=== PATIENT | female | born 1945 | race Caucasian/White ===

== ENCOUNTER 2022-04-14 07:46 | Day surgery (SDC) | payer MEDICARE, SELFPAY ==
[2022-04-14] VITALS (24 sets, daily range): BP systolic 99–176; BP diastolic 54–92; PULSE 44–58; RESP 12–18; TEMP 36.1–36.6; O2SAT 92–100; BMI 29.7
[2022-04-14] MEDS: MIDAZOLAM HCL 1 MG/ML inj IVP (08:01)
[2022-04-14] MEDS: fentaNYL 100 MCG/2 ML inj IVP (08:01)
[2022-04-14] MEDS: SODIUM CHLORIDE 0.9 % (FLUSH) 10 ML SYRINGE IVF (08:37)
[2022-04-14] MEDS: LACTATED RINGERS 1000 ML 1,000 ML 100 ML IV (08:37)
[2022-04-14] MEDS: CELECOXIB 200 MG CAPSULE PO ×2 (08:38→21:14)
[2022-04-14] MEDS: ACETAMINOPHEN 500 MG TABLET 1000 MG PO ×2 (08:38→18:07)
[2022-04-14] MEDS: OXYCODONE (CR) 10 MG TAB.ER.12H PO (08:38)
[2022-04-14 10:03] LABS: INR 1.18 (0.91-1.10); Prothrombin Time 15.4 Seconds
--- NOTE | 2022-04-14 10:07 | SUR.PREOP ---
TIME?OUT:?1005 PT/Marcia RUSHING RN/Haresh MANZO MDA?VERIFICATION?OF?SURGICAL?SITE,?PROCEDURE,?AND?CONSENT OBTAINED?PRIOR?TO?INVASIVE?PROCEDURE.
--- NOTE | 2022-04-14 11:30 | P.ORPRC_ITS ---
Procedure Note Procedure: SURGEON: Senthil Dsouza MD WIND INSTRUMENT REPAIRER: Geo López PA-C PREOPERATIVE DIAGNOSIS: Left knee osteoarthritis POSTOPERATIVE DIAGNOSIS: Left knee osteoarthritis NAME OF OPERATION: Left total knee arthroplasty ANESTHESIA: Spinal ESTIMATED BLOOD LOSS: 0 mL COMPLICATIONS: None SPECIMENS: None DRAINS: None PREOPERATIVE ANTIBIOTICS: Ancef 1 g IMPLANTS: 1. J&J Attune #4 posterior stabilized femur 2. #3 fixed-bearing tibia 3. #4 posterior stabilized, 5 mm fixed-bearing polyethylene 4. 35 patella INDICATIONS: The patient is a 76-year-old female with a longstanding history of severe, unrelenting left knee pain secondary to end-stage (grade IV) left knee osteoarthritis. Despite appropriate nonoperative management, including activity modification, anti-inflammatories, [id number] pain medication, bracing, physical therapy, and injections they continue to have pain and disability. Operative intervention was offered. The risks, benefits and expected outcomes were discussed in detail. These included but were not limited to: Infection, bleeding, injury to blood vessel or nerve, venous thromboembolism. All questions were answered to their satisfaction. Use of an administrative assistant data entry was necessary throughout the case for patient positioning and safety, soft tissue retraction, and closure. PROCEDURE: Spinal anesthesia was administered. The patient was placed supine on the operating table. The administrative assistant data entry made sure the patient was positioned appropriately. The lower extremity was prepped and draped in the usual sterile fashion. The limb was exsanguinated with the Kiko bandage. The pneumatic tourniquet was inflated to 300 mmHg. A standard anterior incision was made with the knee in flexion. Subcutaneous dissection was sharply taken through fascial layer #1. Full-thickness medial and lateral flaps were elevated. The administrative assistant data entry retracted the soft tissues and protected them throughout the case. A standard medial parapatellar approach was made. The patella was everted. The infrapatellar fat pad was preserved. The menisci and cruciate ligaments were sharply d?brided. Marginal osteophytes were d?brided with the rongeur. The drill was used to penetrate the femoral canal. The canal was aspirated and irrigated with pulse lavage. The intramedullary femoral guide was placed for a 5-degree valgus cut, removing 10 mm off the distal femur. The saw was used to make the cut. Whitesides line and the trans epicondylar axis were marked. The femoral sizing guide was pinned onto the distal femur. Three degrees of external rotation nicely parallels the transepicondylar axis. Pins were placed for posterior referencing. The four-in-one cutting guide was pinned onto the distal femur. The anterior, posterior, and chamfer cuts were made. The administrative assistant data entry protected the collateral ligaments. The box cutting guide was pinned. The box cuts were made. The boxed trial was placed and was an excellent fit. Drill holes for the lugs were made. Attention was then turned to the proximal tibia. The extramedullary tibial guide was placed for a neutral varus/valgus cut with 5 degrees of posterior slope, removing 1 mm based off the medial tibial surface. The administrative assistant data entry protected the collateral ligaments and the neurovascular bundle. The saw was used to make the cut. Trial components were placed. The knee was nicely balanced in both flexion and extension. Rotation of the tibial component was matched to the femur in full extension, matched to our tibial cutting pins, and marked with cautery. The trial components were removed. The tray was pinned by the administrative assistant data entry and the drill and the punch were used. The tray was removed. The punch was used again. We placed a bone plug in the femoral canal. Attention was then turned to the patella. [place] patellar thickness was 22 mm. The lobster claw resection guide was used with the 7.5 mm elisa. The saw was used to make the cut. Drill holes were made by the administrative assistant data entry. The trial was placed and was an excellent fit. Cancellous surfaces were irrigated with pulse lavage and thoroughly dried by the administrative assistant data entry. We cemented the tibial component, then the femoral component. A trial spacer was placed. The knee was brought into full extension. We then cemented the patellar component. Excessive cement was removed. The cement was allowed to harden. Any remaining excessive cement was removed with the osteotome. We impacted the 5 mm polyethylene onto the tibial tray. The knee was taken through a range of motion and was found to be nicely balanced in both flexion and extension. The patella tracks centrally. The administrative assistant data entry did a three minute dilute Betadine solution soak. The administrative assistant data entry irrigated the wound with 3 liters of normal saline via pulse lavage. The administrative assistant data entry reapproximated the extensor mechanism with #1 Vicryl in an interrupted [id number] fashion. The administrative assistant data entry then ran the extensor mechanism with a #1 PDO Stratafix. The administrative assistant data entry closed the subcutaneous tissues with a 3-0 Stratafix and the skin with a running 3-0 Stratafix in a subcuticular fashion. Glue was used to seal the skin. The administrative assistant data entry placed a dry dressing, ERWIN stocking, and Polar Care. Sponge and needle counts were correct x2. The patient tolerated the procedure well. There were no apparent complications. They were carefully transferred to the hospital bed and taken to the postanesthesia care unit in satisfactory condition. PLAN: The patient will be mobilized with physical therapy. Her usual dose of Coumadin can be restarted tomorrow. They will be discharged to home once medically appropriate.
--- NOTE | 2022-04-14 12:28 | W.ANESCHARGE ---
Anesthesia Charges Start Date/Time Anesthesia Start Date: 04/14/22 Anesthesia Start Time: 10:12 Stop Date/Time Anesthesia Stop Date: 04/14/22 Anesthesia Stop Time: 12:27 Summary Emergency: No Extremes of Age: Over 69-CPT 02981
--- NOTE | 2022-04-14 12:30 | CRLHL7_ITS ---
For Patients: As a result of the Cures Act, medical imaging exams and procedure reports are released immediately into your electronic medical record. You may view this report before your referring provider. If you have questions, please contact your health care provider. Indication: Postop Technique: Two views left knee Findings/Impression: Hardware from a left total knee arthroplasty is in satisfactory position. Bone alignment is normal. No sign of acute fracture. Postop changes are within normal limits. Dictated by Tj Sainz MD @ 04/14/2022 1:13:13 PM (Electronically Signed)
--- NOTE | 2022-04-14 12:52 | W.ANESCHARGE ---
Anesthesia Charges Start Date/Time Anesthesia Start Date: 04/14/22 Anesthesia Start Time: 10:12 Stop Date/Time Anesthesia Stop Date: 04/14/22 Anesthesia Stop Time: 12:27 Summary Emergency: No Extremes of Age: Over 69-CPT 25247
--- NOTE | 2022-04-14 12:52 | W.PM.NB ---
Nerve Block Nerve Block Time Seen by Provider: 10:00 Date Seen: 04/14/22 Type of block requested by surgeon for post-operative analgesia: adductor canal Side: right Time out performed: Yes Verification of patient name: Yes Verification of date of : Yes Site marking: site marked Name of person performing procedure: Nader Continuous monitoring Was continuous monitoring of O2 sat, B/P, acute care nurse practitioner, recorded every 15 minutes?: Yes Procedure Checklist: sterile prep, needles and gloves Ultrasound guided. Images saved: Yes Medications given in 5ml increments after negative aspiration: Ropivicaine %: 0.5 mL: 20 Needle gauge: 22 Decadron (mg): 10 Precedex (mcg): 25 Patient tolerated procedure well: Yes Additional comments: Needle noted adjacent to nerve
--- NOTE | 2022-04-14 12:53 | P.NB_ITS ---
Nerve Block Nerve Block Time Seen by Provider: 12:52 Date Seen: 04/14/22 Type of block requested by surgeon for post-operative analgesia: geniculars Side: right Time out performed: Yes Verification of patient name: Yes Verification of date of : Yes Site marking: site marked Name of person performing procedure: Nader Continuous monitoring Was continuous monitoring of O2 sat, B/P, secured entrance monitor, recorded every 15 minutes?: Yes Procedure Checklist: sterile prep, needles and gloves Ultrasound guided. Images saved: Yes Medications given in 5ml increments after negative aspiration: Ropivicaine %: 0.5 mL: 9 Needle gauge: 25 Patient tolerated procedure well: Yes Additional comments: Needle noted adjacent to nerve
--- NOTE | 2022-04-14 13:03 | SUR.PHASEI ---
xray here for ap/lat left knee
[2022-04-14] MEDS: OXYCODONE 5 MG TABLET PO ×2 (15:33→19:32)
--- NOTE | 2022-04-14 16:13 | P.IMCN_ITS ---
Date of Consult Patient: [facility] Patient Consult date: 04/14/22 Requesting Physician: Orthopedics Primary Care Provider: Jerilyn Cervantes MD Consult Narrative Reason for consult: Assist with postoperatively with hypertension, paroxysmal atrial fib Narrative: Teresa Pinto is a 76 year old female I reviewed her preoperative assessment dated 03/19/2022. Review of Systems Narrative: Generally doing well. Denies any recent trauma, injury, travel. No blood loss of any sort recently. Denies fevers, rigors, diaphoresis. Denies weight gain or weight loss. Denies angina, anginal equivalent, syncope, near syncope, nausea, vomiting, dyspnea at rest, paroxysmal nocturnal dyspnea, orthopnea. Denies claudication. Denies gastrointestinal or genitourinary concerns. States she takes her medications as prescribed. Her hope is to be able to be transferred to a fdc facility after this hospitalization for transitional cares before she returns to home. She tells me she is working with the public health social worker staff to try to establish this. [facility] Medical History (Updated 04/14/22 @ 16:24 by Srikanth Lofton MD) Anticoagulated with warfarin Atrial fibrillation and flutter (2016) Decreased creatinine clearance Fracture of right femur Gastroesophageal reflux disease History of depression History of osteoporosis (2015) Hyperlipidemia Hypertension Intracranial tumor (01/2016) Iron deficiency anemia residential current use of anticoagulant therapy Paroxysmal atrial fibrillation Sliding hiatal hernia (2016) Subclinical hypothyroidism Surgical History (Updated 04/14/22 @ 08:55 by Jose Angel Lux RN) History of section History of surgery on upper extremity (2015) History of total right knee replacement (2011) Family History (Updated 03/17/22 @ 10:04 by Will Cha) Sister Rheumatoid arthritis Social History (Updated 04/14/22 @ 08:56 by Jose Angel Lux RN) Narrative: exercises 3 times per week- pool exercise 3x/week, [facility] non-smoker: quit age 29, 5 pack years rarely consumes alcohol , lives alone in a condo, 2 adult sons, 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 past problems: former smoker Smoking Status: Former smoker How often do you have a drink containing alcohol: never AUDIT-C Alcohol total score: 0 Non-prescribed substance use: denies use Caffeine: Yes Are you using contraception or practicing any form of control: No Meds Home Medications and Allergies Home Medications Medication Instructions Recorded Confirmed Type acetaminophen 325 mg tablet 325 mg PO Q6H PRN 04/13/22 04/14/22 History atorvastatin 10 mg tablet 10 mg PO HS 04/13/22 04/14/22 History calcium carb-vit D3-minerals 600 1 tab PO BID 04/13/22 04/14/22 History mg calcium-400 unit tablet cholecalciferol (vitamin D3) 50 2,000 unit PO DAILY 04/13/22 04/14/22 History mcg (2,000 unit) capsule gabapentin 300 mg capsule 300 mg PO Q8H 04/13/22 04/14/22 History metoprolol succinate 25 mg 25 mg PO DAILY 04/13/22 04/14/22 History tablet,extended release 24 hr omeprazole 20 mg capsule,delayed 20 mg PO Q24H 04/13/22 04/14/22 History release propafenone 225 mg tablet 225 mg PO Q12H 04/13/22 04/14/22 History sertraline 25 mg tablet 25 mg PO Q24H 04/13/22 04/14/22 History warfarin 3 mg tablet 3 mg PO DAILY 04/13/22 04/14/22 History Home Medication Comments: Held warfarin for the past 5 days. Has taking her metoprolol as well as her propafenone up until this morning. Allergies Allergy/AdvReac Type Severity Reaction Status Date / Time ciprofloxacin Allergy Severe itching Verified 04/14/22 08:12 lisinopril Allergy Unknown Verified 04/14/22 08:12 metoprolol Allergy Unknown Verified 04/14/22 08:12 Exam Narrative: Exam Narrative: Appears comfortable. Alert, oriented to person, place, time, situation. Mood and affect are congruent. Cooperative and articulate. Friendly. Gracious. Lungs are clear to auscultation. Heart tones with regular rhythm. Abdomen with active bowel sounds, soft, nontender. Cranial nerves 3-12 grossly intact. Const: Vital Signs, click to edit/add: Vital Signs - 24 hr 04/14/22 08:28 04/14/22 10:09 04/14/22 12:32 Temperature 98 F 97.6 F Pulse Rate 58 L 53 L 46 L Pulse Rate [Pulse Oximeter] Respiratory Rate 18 14 12 Blood Pressure 152/62 H 176/91 H 103/63 Blood Pressure [Le ft Arm] Pulse Oximetry 96 100 92 04/14/22 12:35 04/14/22 12:38 04/14/22 12:42 Temperature 97.6 F 97.6 F 97.6 F Pulse Rate 45 L 47 L 44 L Pulse Rate [Pulse Oximeter] Respiratory Rate 12 16 16 Blood Pressure 107/63 107/63 119/71 Blood Pressure [Le ft Arm] Pulse Oximetry 93 92 93 04/14/22 12:48 04/14/22 12:50 04/14/22 12:56 Temperature 97.6 F 97.6 F 97.6 F Pulse Rate 44 L 45 L 45 L Pulse Rate [Pulse Oximeter] Respiratory Rate 16 16 16 Blood Pressure 125/73 134/74 140/72 H Blood Pressure [Le ft Arm] Pulse Oximetry 95 93 94 04/14/22 13:02 04/14/22 13:06 04/14/22 13:10 Temperature 97.6 F 97.6 F 97.9 F Pulse Rate 44 L 44 L 44 L Pulse Rate [Pulse Oximeter] Respiratory Rate 16 16 16 Blood Pressure 135/78 132/72 135/71 Blood Pressure [Le ft Arm] Pulse Oximetry 92 93 93 04/14/22 13:20 04/14/22 13:30 04/14/22 13:45 Temperature 96.9 F L 96.9 F L 96.9 F L Pulse Rate 46 L Pulse Rate [Pulse Oximeter] 46 L 46 L Respiratory Rate 14 14 14 Blood Pressure Blood Pressure [Le ft Arm] 132/77 137/75 Pulse Oximetry 92 94 04/14/22 14:00 04/14/22 14:15 04/14/22 14:30 Temperature 96.9 F L 96.9 F L 97.2 F L Pulse Rate Pulse Rate [Pulse Oximeter] 46 L 46 L 48 L Respiratory Rate 14 14 14 Blood Pressure Blood Pressure [Le ft Arm] 131/76 110/60 99/68 Pulse Oximetry 92 93 96 04/14/22 15:00 Temperature 97.3 F L Pulse Rate Pulse Rate [Pulse Oximeter] 48 L Respiratory Rate 14 Blood Pressure Blood Pressure [Le ft Arm] 133/74 Pulse Oximetry 92 Assessment and Plan Assessment and plan (1) Osteoarthritis of left knee: Status: Acute Assessment and Plan: Status post elective left total knee arthroplasty today, stable. Will follow with Orthopedic surgery. (2) Paroxysmal atrial fibrillation: Status: Acute Assessment and Plan: Postoperative venous thromboembolism prophylaxis per Orthopedic surgery. Eventually will resume her anticoagulation on warfarin. Continue with propafenone. (3) terminal carman current use of anticoagulant therapy: Status: Acute (4) Subclinical hypothyroidism: Status: Acute (5) Sliding hiatal hernia: Status: Acute (6) Hypertension: Status: Acute Assessment and Plan: Continue with metoprolol. (7) Hyperlipidemia: Status: Acute Assessment and Plan: Continue with her atorvastatin. (8) Gastroesophageal reflux disease: Status: Acute Assessment and Plan: Continue with omeprazole use. Plan Reviewed with patient. She requests DNR DNI resuscitation status. She designates her son, Jose, as her power of photo equipment technician for health should that be required. She will work with our physical and occupational therapy staff while in hospital. She will work with our public health social worker staff in regard to discharge disposition planning.
[2022-04-14] MEDS: CEFAZOLIN 1 GM in 0.9 % SODIUM CHLORIDE Mini-bag 100 ML IVPB (17:14)
--- NOTE | 2022-04-14 18:31 | PC.NURSE ---
Pt. is alert and oriented x3. VERY pleasant and cooperative. Hx of Afib. Pt. rates her pain between 1 and 3, PRN oxy administered at 1530 and tolerated well. Pt. ambulated to commode for the first time after surgery at 1600. Tolerated activity well. Vitally stable, sinus altagracia, room air and bilateral teds and plexipulses applied. Pt. is using ISO. Pt. met w/director of social work regarding discharge plan for tomorrow. Pt. hopes to go to detention facility for transitional care before returning home. Scheduled Acetaminophen given at 1800 and denies needing any pain meds. IV patent and intact in Rt. forearm and saline locked at 1800.
[2022-04-14] MEDS: SENNOSIDES 1 TAB TABLET 2 TAB PO (21:14)
[2022-04-14] MEDS: PROPAFENONE HCL 150 MG TABLET 225 MG PO (21:14)
[2022-04-14] MEDS: GABAPENTIN 300 MG CAPSULE PO (21:14)
[2022-04-14] MEDS: ATORVASTATIN 10 MG TABLET PO (21:14)
[2022-04-15] MEDS: CEFAZOLIN 1 GM in 0.9 % SODIUM CHLORIDE Mini-bag 100 ML IVPB ×2 (00:15→09:04)
[2022-04-15] MEDS: LORazepam 0.5 MG TABLET PO (00:16)
[2022-04-15] MEDS: ACETAMINOPHEN 500 MG TABLET 1000 MG PO ×3 (00:16→11:24)
[2022-04-15] MEDS: OXYCODONE 5 MG TABLET PO ×3 (03:17→11:23)
[2022-04-15 03:30] VITALS: BP 132/71; PULSE 56; RESP 18; TEMP 36.5; O2SAT 93
--- NOTE | 2022-04-15 04:21 | PC.NURSE ---
Shift note -: Pt alert, uses call light for needs. Up w/ walker and SBA, moving well. Rating pain to L knee 1-5/10, verbalizes good pain control utilizing scheduled Tylenol, infrequent PRN Oxy, and cryocuff. L knee drsg CDI, CMS intact. Plans to DC to SNF today for rehab.
[2022-04-15] MEDS: OMEPRAZOLE 20 MG CAPSULE DR PO (06:08)
[2022-04-15 07:32] LABS: INR 1.08 (0.91-1.10); Prothrombin Time 14.4 Seconds
[2022-04-15 07:57] VITALS: BP 135/71; PULSE 64; RESP 18; TEMP 36.6; O2SAT 93
[2022-04-15 08:17] LABS: Hematocrit 41.1 % (33.0-51.0); Mean Corpuscular HGB Conc 32 gm/dL (32-36); Mean Corpuscular Hemoglobin 28 pg (26-34); Mean Corpuscular Volume 88 fL (80-100); Platelet Count* 278 K/uL (140-440); Red Blood Count 4.69 m/uL (4.00-5.20); White Blood Count* 16.42 K/uL (4.50-11.00)
[2022-04-15 08:19] LABS: Chloride* 101 mmol/L (96-114); Potassium* 4.3 mmol/L (3.6-5.1); Slide Review Reflex No; Sodium* 137 mmol/L (135-149)
[2022-04-15 08:22] LABS: Blood Urea Nitrogen* 19 mg/dL (7-30); Carbon Dioxide* 27 mmol/L (20-32); Creatinine* 0.8 mg/dL (0.5-1.5); Est. Creatinine Clearance* 49.63; Estimated Glomerular Filt Rate 75.84
[2022-04-15] MEDS: SERTRALINE 50 MG TABLET 25 MG PO (08:31)
[2022-04-15] MEDS: GABAPENTIN 300 MG CAPSULE PO (08:31)
[2022-04-15] MEDS: CELECOXIB 200 MG CAPSULE PO (08:31)
[2022-04-15] MEDS: METOPROLOL SUCCINATE (XL) 25 MG TAB PO (08:31)
[2022-04-15] MEDS: SENNOSIDES 1 TAB TABLET 2 TAB PO (08:31)
[2022-04-15] MEDS: SODIUM CHLORIDE 0.9 % (FLUSH) 10 ML SYRINGE IVF (08:32)
[2022-04-15] MEDS: PROPAFENONE HCL 150 MG TABLET 225 MG PO (08:36)
--- NOTE | 2022-04-15 09:44 | PM.ORPN ---
Subjective Subjective Time Seen by Provider: 08:30 Date Seen: 04/15/22 Principal diagnosis: status post left total knee arthroplasty Interval history: patient is comfortable this morning. She Plans discharge to today. Ortho Exam Narrative Exam Narrative: Alert and oriented x3. Patient is in no acute distress. Converses without labored breathing. Hearing is grossly intact. Ambulates with a walker. Examination of the left lower extremity shows mild soft tissue edema about the left knee. Mild effusion. Mild effusion. CMS intact left lower extremity. Bilateral calves are soft and nontender. Const Vital Signs, click to edit/add: Vital Signs - 24 hr 04/14/22 10:09 04/14/22 12:32 04/14/22 12:35 Temperature 97.6 F 97.6 F Pulse Rate 53 L 46 L 45 L Pulse Rate [Pulse Oximeter] Respiratory Rate 14 12 12 Blood Pressure 176/91 H 103/63 107/63 Blood Pressure [Left Arm] Pulse Oximetry 100 92 93 04/14/22 12:38 04/14/22 12:42 04/14/22 12:48 Temperature 97.6 F 97.6 F 97.6 F Pulse Rate 47 L 44 L 44 L Pulse Rate [Pulse Oximeter] Respiratory Rate 16 16 16 Blood Pressure 107/63 119/71 125/73 Blood Pressure [Left Arm] Pulse Oximetry 92 93 95 04/14/22 12:50 04/14/22 12:56 04/14/22 13:02 Temperature 97.6 F 97.6 F 97.6 F Pulse Rate 45 L 45 L 44 L Pulse Rate [Pulse Oximeter] Respiratory Rate 16 16 16 Blood Pressure 134/74 140/72 H 135/78 Blood Pressure [Left Arm] Pulse Oximetry 93 94 92 04/14/22 13:06 04/14/22 13:10 04/14/22 13:20 Temperature 97.6 F 97.9 F 96.9 F L Pulse Rate 44 L 44 L 46 L Pulse Rate [Pulse Oximeter] Respiratory Rate 16 16 14 Blood Pressure 132/72 135/71 Blood Pressure [Left Arm] Pulse Oximetry 93 93 04/14/22 13:30 04/14/22 13:45 04/14/22 14:00 Temperature 96.9 F L 96.9 F L 96.9 F L Pulse Rate Pulse Rate [Pulse Oximeter] 46 L 46 L 46 L Respiratory Rate 14 14 14 Blood Pressure Blood Pressure [Left Arm] 132/77 137/75 131/76 Pulse Oximetry 92 94 92 04/14/22 14:15 04/14/22 14:30 04/14/22 15:00 Temperature 96.9 F L 97.2 F L 97.3 F L Pulse Rate Pulse Rate [Pulse Oximeter] 46 L 48 L 48 L Respiratory Rate 14 14 14 Blood Pressure Blood Pressure [Left Arm] 110/60 99/68 133/74 Pulse Oximetry 93 96 92 04/14/22 16:00 04/14/22 17:00 04/14/22 18:00 Temperature Pulse Rate Pulse Rate [Pulse Oximeter] 48 L 48 L 48 L Respiratory Rate 14 14 14 Blood Pressure Blood Pressure [Left Arm] 130/92 H 130/90 H 131/75 Pulse Oximetry 93 92 93 04/14/22 19:00 04/14/22 23:50 04/15/22 03:30 Temperature 98 F 97.3 F L 97.7 F Pulse Rate Pulse Rate [Pulse Oximeter] 53 L 53 L 56 L Respiratory Rate 18 18 18 Blood Pressure Blood Pressure [Left Arm] 120/54 L 147/81 H 132/71 Pulse Oximetry 94 95 93 04/15/22 07:57 Temperature 98 F Pulse Rate Pulse Rate [Pulse Oximeter] 64 Respiratory Rate 18 Blood Pressure Blood Pressure [Left Arm] 135/71 Pulse Oximetry 93 Assessment and Plan Assessment and plan (1) Osteoarthritis of left knee: Status: Acute (2) Paroxysmal atrial fibrillation: Status: Acute (3) [facility] current use of anticoagulant therapy: Status: Acute (4) Subclinical hypothyroidism: Status: Acute (5) Sliding hiatal hernia: Status: Acute (6) Hypertension: Status: Acute (7) Hyperlipidemia: Status: Acute (8) Gastroesophageal reflux disease: Status: Acute (9) Status post total left knee replacement: Status: Acute Assessment and Plan: INR check tomorrow At [facility]. Today patient was given 5 mg of warfarin. Her usual dose is 3 mg daily. She will need dosing by her family doctor tomorrow post INR check. Plan for discharge is today to home if they meet discharge criteria. DVT prophylaxis includes warfarin, Vitaly stockings x1 month may remove for 1 hr per day, frequent ambulation Remove dressing in 1 week. Observe wound and phone Orthopedics with any questions or concerns Return to clinic in 1 week for a wound check Return to clinic in [address] Dsouza Minimize narcotic use. Wean off and discontinue soon as possible. Activities as tolerated. No strenuous activity. Outpatient physical therapy as scheduled. Ice and elevate the operative extremity. No restriction on ice.
--- NOTE | 2022-04-15 12:02 | PC.NURSE ---
Pt does not need a return to work note.
--- NOTE | 2022-04-15 14:11 | PC.NURSE ---
discharge instructions reviewed with patient. Pt verbalized understanding to take 5mg coumadin tonight and to have INR rechecked at appointment on 04/16 at [facility]. reviewed new medications and to leaf size picker at preferred pharmacy. pt has son picking up to transport home. pt tolerating regular diet, pain controlled, iv removed. belongings form reviewed and signed. pt denied any further questions at this time. pt discharged from m/s floor at 1415
--- NOTE | 2022-04-19 11:27 | P.DS_ITS ---
DS: Providers Provider Time Seen by Provider: 09:00 Date Seen: 04/15/22 Date of admission: 04/14/2022 Primary care physician: Jerilyn Cervantes MD Admitting Clinician: Senthil Dsouza MD Consults: 04/14/22 11:27 Consult to Occupational Therapy [CONS] Routine Comment: See nursing Activity Order Reason(s) for OT Consult:: Evaluate and Treat Any Restrictions?:: No Restrictions Consult to Physical Therapy [CONS] Routine Comment: Ambulate in the teague today. Reason(s) for PT Consult:: Evaluate and Treat Any Restrictions?:: No Restrictions Consult to Corporate Affairs Manager [CONS] Routine Comment: Reason for Consult:: Discharge Planning Needs Attending Physician on discharge: Senthil Dsouza MD Date of Discharge: 04/15/22 DS: Diagnosis Discharge Diagnosis (1) Status post total left knee replacement: Status: Acute (2) Osteoarthritis of left knee: Status: Acute (3) FPC current use of anticoagulant therapy: Status: Acute (4) Paroxysmal atrial fibrillation: Status: Acute (5) Hypertension: Status: Acute (6) Hyperlipidemia: Status: Acute (7) Gastroesophageal reflux disease: Status: Acute DS: Summary Hospital Course Hospital Course: 76-year-old woman admitted for elective left total knee arthroplasty per Dr. Senthil Dsouza, without any obvious adverse consequences. Patient originally had desired to be [facility] to [facility] for short period of time before returning to her home living setting. Corporate Affairs Manager work to with the patient, physical therapy, occupational therapy, and the patient's and syringes company. Patient's insurance company indicated that patient did not meet eligibility criteria for insurance coverage. Patient ended up being discharged to her home. Appropriate outpatient referrals made prior to discharge. Status at Discharge Cognitive/behavioral status at discharge: Alert, oriented to self, place, time, situation. Articulate. Cooperative. Able to make safe decisions on her own behalf. Functional status at discharge: uses cane/walker Time Spent with Patient Time attestation: Total time spent providing and/or coordinating discharge services: Time spent: Less than 30 minutes Exam Narrative: Exam Narrative: Lungs are clear to auscultation. Heart tones with regular rhythm. Abdomen with active bowel sounds, soft, nontender. Independent with transfers and station and gait with use of her walker. Const: Documenting provider has reviewed patient's vital signs: yes Discharge Plan Discharge Disposition: Home, Self-Care Discharging Surgeon: Senthil Dsouza Follow-Up Appointment: 1 week Prescriptions: New acetaminophen 500 mg Tablet 500 - 1,000 mg PO Q6H MDD 4000 mg per day PRNQty: 100 0RF oxycodone 5 mg Tablet 2.5 - 5 mg PO Q4-6H MDD 6 tabs per day PRN (Reason: Pain) Qty: 42 0RF Rx Instructions: Minimize. Discontinue as soon as possible sennosides [Senna Lax] 8.6 mg Tablet 2 tab PO BID PRNQty: 100 0RF Continued atorvastatin 10 mg tablet 10 mg PO HS 0RF gabapentin 300 mg capsule 300 mg PO Q8H 0RF warfarin 3 mg tablet 3 mg PO DAILY 0RF Protocol: Dose Management Condition: Tuesday Dose/Route: 3 % Instruction: 1 x 3 % tablet Condition: Tuesday Dose/Route: 3 % Instruction: 1 x 3 % tablet Condition: Tuesday Dose/Route: 3 % Instruction: 1 x 3 % tablet Condition: Tuesday Dose/Route: 3 % Instruction: 1 x 3 % tablet Condition: Dose/Route: 3 % Instruction: 1 x 3 % tablet Condition: Tuesday Dose/Route: 3 % Instruction: 1 x 3 % tablet Condition: Tuesday Dose/Route: 3 % Instruction: 1 x 3 % tablet Protocol Text: Adjustment Start Date: Tuesday04/16/22 INR Value: 1.2 INR Date: 04/16/22 Recheck Date: 04/30/22 propafenone 225 mg tablet 225 mg PO Q12H 0RF sertraline 25 mg tablet 25 mg PO Q24H 0RF omeprazole 20 mg capsule,delayed release(DR/EC) 20 mg PO Q24H 0RF metoprolol succinate 25 mg tablet extended release 24 hr 25 mg PO DAILY 0RF cholecalciferol (vitamin D3) 50 mcg (2,000 unit) capsule 2,000 unit PO DAILY 0RF calcium carbonate-vit D3-min 600 mg calcium- 400 unit tablet 1 tab PO BID 0RF Discontinued acetaminophen 325 mg tablet 325 mg PO Q6H PRN0RF No Action lisinopril 10 mg tablet 10 mg PO QDAY 0RF Activity Level: Activity as Tolerated and No strenuous activity Activity Detail: Keep dressing on for 1 week. Dressing is waterproof. May shower. Surgical glue covers the wound. Attend Outpatient physical therapy as scheduled. Ice operative extremity without restriction. Wear compression stockings for 1 month postsurgery. May remove for 1 hour per day. Notify Orthopedics with any questions or concerns ([phone]). Discharge Diet: Heart Healthy (2 gm sodium, low fat) Patient Instructions: Acetaminophen (By mouth), Laxative, Stimulant (By mouth), Oxycodone, Rapid Release (By mouth), Surgical Site Infections (DC), Knee Replacement (DC) Additional Instructions: Teresa needs an appointment with [facility] for INR check tomorrow, tuesday. She is given warfarin 5 mg . Her usual dose is 3 mg daily. Please make clinic aware that Dr Cervantes or associate will need to dose Teresa's Warfarin for the weekend and therafter. Forms: Work/Release Restrictions Follow-up: Kathryn Stewart [Other] - 04/21/22 2:00 pm (Schedule 6 week surgeon appointment at this time.) INR, [facility] [Other] - 04/16/22 8:30 am Jerilyn Cervantes MD [Primary Care Provider] - Discharge Orders: Discharge Order (Routine); Ordered 04/15/22 Ordered By: Srikanth Lofton
== END 2022-04-15 14:26 | disposition home or self-care (01) ==
LOC: OR 07:47 → MEDSURG 16:18
PROVIDERS: Anesthesiology; PCP Family Medicine; Visit Provider Orthopaedic Surgery
PROC: (CPT 27447; principal; 2022-04-14 11:25)
DX: M17.12 Unilateral primary osteoarthritis, left knee (principal); I48.0 Paroxysmal atrial fibrillation; Z79.01 Long term (current) use of anticoagulants; K21.9 Gastro-esophageal reflux disease without esophagitis; E78.5 Hyperlipidemia, unspecified; I10 Essential (primary) hypertension; E03.8 Other specified hypothyroidism; K44.9 Diaphragmatic hernia without obstruction or gangrene
CPT/HCPCS: 27447; 1402; 36415; 64447; 64454; 73560; 76942; 80051; 82565; 84520; 85027; 85610; 97110; 97116; 97162; 97165; 97530; 99100; A9270; C1776; J0690; J1100; J2250; J2405; J2704; J2795; J3010; J7120

== ENCOUNTER 2022-06-03 13:00 | Outpatient (RCR) | payer MEDICARE, SELFPAY ==
--- NOTE | 2022-04-26 09:23 | PT.OPE ---
PT [facility] Outpatient Eval PT [facility] Outpatient Eval Start: 04/26/22 07:43 Freq: Status: Active Protocol: Document 04/26/22 09:15 CJT (Rec: 04/26/22 09:20 CJT [id number]) E-Signed By Bob Saavedra PT Physical Therapy Outpatient Evaluation Insurance Information Recert Due Date 07/25/22 Insurance Name Medicare B Medical Diagnosis LEFT TKA DOS 04/14/2022 Treating Diagnosis M25.562 - L knee pain M25.662 - L knee stiffness Referring Kathryn Sanford Subjective Subjective Pt presents post-op L TKA performed on 04/14/2022. Pt still taking her oxycodone for pain control but overall us doing well. Presents with walker today. Is cooking. Pt lives alone in a condo with 10 stairs to enter. Pt is dressing, bathing, cooking I. Pt has a tub shower with no grab bars but has a chair that she sits on to bathe. Pt is wondering if someone could come to her home to help her with showering but she says she can manage on her own if not. Has been icing regularly. Date of Last Physician Visit 04/21/22 Date of Next Physician Visit 05/26/22 Date of Surgery (If applicable) 04/14/22 Current Work Status Retired Preferred Name [facility] Precautions Treatment Precautions/Contraindications Pts first language is Montserratian. Pt does speak [place] but can be difficult to understand at times. Weight Bearing Status Weight Bear as Tolerated Therapy Limitations/Systems Review Language Barrier Objective Range of Motion L knee AROM - 5-102 L knee PROM - 2-108 R knee AROM - 2-0-120 Swelling Swelling present today; visibly reduced following effusion massage to L LE. Balance & Gait Ambulates with FWW currently Other/Pertinent Objective Pts surgical incision is healing well, absent of drainage, redness, and excessive warmth. Surgical glue is beginning to peel. Assessment Assessment/Impression Peace is a 76 year old female who presents 12 days post-op L KTA (DOS: 04/14/2022). Pt presents with FWW today. Pts pain is well managed at this time with oxycodone, ice, and Tylenol. Pt lives in a condo in [place] by herself with 10 steps to enter. Kitchen/Bed /Bathroom all on same level with tub shower in bathroom with no grab bars. Pt reports that she has been completely I with all ADLs, but asks if she could have someone come to her home to help her shower. Per Kathryn Stewart's (PA-C) last note with [facility], insurance has denied home health visits. Pt shows good quad set today and L knee ROM is progressing well (see objective). Pt also uses her walker appropriately with use of both hands and continuous slide of the walker during ambulation. Pt is also able to walk short distances at this time without use of her walker . Skilled PT services are medically necessary to address deficits and return patient to highest level of function. Recommend physical therapy sessions 2 reducing to 1/week for 8-12 weeks. Pt agrees with this plan. Printout of HEP was given for I completion and pt gives verbal understanding of each exercise. Pt was dropped off and picked up today by her son, Jose. Pt is hoping to transfer to [facility] as it is closer to her home and would require less driving for her son while he is working. Primary Functional Limitations Walking, stairs, standing Plan of Care Rehabilitation Potential Excellent Physical Therapy Goals STG - To be completed in 2-3 weeks: 1. Pt will report consistent use of ice as well as elevation of surgical limb while resting to reduce inflammation and swelling. 2. Pt will demonstrate 110 degrees of knee flexion on surgical limb to reduce risk of contracture development and progress through rehabilitation as expected. 3. Pt to show appropriate use of all AD's with minimal gait deviations and no LOB with all ambulation to reduce risk of falls and restore normal gait mechanics. LTG - To be completed in 8-12 weeks: 1. Pt to be I with HEP so that they may I manage progression of symptoms. 2. Pt will demonstrate 120 degrees knee flexion on surgical limb so that they may descend steps without restrictions in ROM. 3. Pt will perform 10 squats with good control over medial/ lateral deviation of knees to show improved functional strength to assist with transfers. 4. Pt will demonstrate 5/5 MMT knee flexion/extension of surgical limb to provide greater support to knee joint and allow for ease of ambulation. Treatment Plan/Direct Interventions Electrical Stimulation,Gait Training,Ice/Cold/ Vasopneumatic,Joint Mobilization,Manual Therapy, Neuromuscular Re-ed,Self-Care/ Home Management,Therapeutic Activities,Therapeutic Exercises Frequency/Duration 2 reducing to 1/week for 8-12 weeks. Patient Will Be Discharged From Therapy Completion of LTG(s),Skills Plateau,Independent w/HEP, Independently Progressing Evaluation Billing Untimed Code Treatment Minutes 30 PT Eval No Charge No Complexity Low
== END 2022-08-09 14:30 | disposition home or self-care (01) ==
PROVIDERS: PCP Family Medicine; Visit Provider Physician Assistant Surgical
DX: M25.562 Pain in left knee (principal); M25.662 Stiffness of left knee, not elsewhere classified; Z51.89 Encounter for other specified aftercare
CPT/HCPCS: 97016; 97110; 97140; 97161

== ENCOUNTER 2022-11-09 07:20 | Outpatient (CLI) | payer MEDICARE, SELFPAY ==
[2022-11-09 09:59] LABS: Albumin* 4.1 g/dL (3.3-5.0); Chloride* 103 mmol/L (96-114)
[2022-11-09 10:00] LABS: Potassium* 4.6 mmol/L (3.6-5.1); Sodium* 139 mmol/L (135-149)
[2022-11-09 10:02] LABS: Aspartate Amino Transferase* 26 U/L (12-35); Bilirubin Total* 0.5 mg/dL (0.1-1.5); Blood Urea Nitrogen* 18 mg/dL (7-30); Carbon Dioxide* 31 mmol/L (20-32); Cholesterol* 210 mg/dL (90-199); Estimated Glomerular Filt Rate 58 ml/min; Glucose* 93 mg/dL (60-115); Total Protein* 6.9 g/dL (6.0-8.3)
[2022-11-09 10:03] LABS: Alanine Aminotransferase* 20 U/L (4-35); Alkaline Phosphatase* 77 U/L (40-150); Calcium* 9.2 mg/dL (8.4-10.6); HDL Cholesterol* 99 mg/dL (>=50); LDL Cholesterol Calculated 89 mg/dL (<100); Triglycerides* 112 mg/dL (40-149)
[2022-11-09 10:05] LABS: Vitamin D 25 Hydroxy* 74 ng/mL (30-80)
[2022-11-09 10:50] LABS: Free T4 Free Thyroxine* 1.17 ng/dL (0.70-1.85)
== END 2022-11-09 07:21 | disposition home or self-care (01) ==
PROVIDERS: PCP Family Medicine; Visit Provider Family Medicine
DX: Z00.00 Encounter for general adult medical examination without abnormal findings (principal); E03.8 Other specified hypothyroidism; M81.0 Age-related osteoporosis without current pathological fracture; E78.5 Hyperlipidemia, unspecified; I10 Essential (primary) hypertension; F41.8 Other specified anxiety disorders; I48.0 Paroxysmal atrial fibrillation; K21.9 Gastro-esophageal reflux disease without esophagitis; R51.9 Headache, unspecified; Z79.01 Long term (current) use of anticoagulants
CPT/HCPCS: 80053; 80061; 82306; 84439; 84443

== ENCOUNTER 2022-12-16 09:28 | Outpatient (CLI) | payer MEDICARE, SELFPAY ==
--- NOTE | 2022-12-16 10:15 | CRLHL7_ITS ---
For Patients: As a result of the Century Cures Act, medical imaging exams and procedure reports are released immediately into your electronic medical record. You may view this report before your referring provider. If you have questions, please contact your health care provider. BILATERAL SCREENING MAMMOGRAM WITH COMPUTER-AIDED DETECTION TECHNIQUE: CC and MLO views were obtained. These mammographic images have been obtained using full-field digital technique. These mammographic images were interpreted with the benefit of computer-aided detection. COMPARISON FILM: 12/15/21, 11/10/20, 11/02/19. FINDINGS: The breasts are almost entirely fatty. IMPRESSION: There is no radiographic evidence for malignancy. ASSESSMENT: BI-RADS Category 1: Negative RECOMMENDATION: Routine screening mammogram in 1 year. A lay language report of this examination will be provided to the patient. TJ COLLAZO M.D. Diagnostic Radiologist [email or web address] CIARRA/dalia Transcribed: 12/16/2022, 5:[address]/Dictated by: Tj Collazo MD @ 12/16/2022 11:59:00 AM (Electronically Signed)
== END 2022-12-16 09:29 | disposition home or self-care (01) ==
LOC: MAMMO 09:31
PROVIDERS: PCP Family Medicine; Visit Provider Family Medicine
DX: Z12.31 Encounter for screening mammogram for malignant neoplasm of breast (principal)
CPT/HCPCS: 77067

== ENCOUNTER 2023-01-18 11:57 | Outpatient (CLI) | payer MEDICARE, SELFPAY ==
[2023-01-18 14:03] VITALS: BP 162/84; PULSE 67; RESP 20
--- NOTE | 2023-01-18 16:05 | W.PM.STED ---
Stress Test Note Date Date of test: 01/18/23 Providers Referring provider: David Meadows Primary care provider: Jerilyn Cervantes Stress test physician: Venu Simon Stress Test Note Stress test ordered: Stress Echo Indication for test: Paroxysmal afib Results discussion: Patient is a 77-year-old female presents here for a stress echo, after discussion the risks benefits side effects she would like to proceed pretest EKG shows normal sinus rhythm, ventricular rate is 61, there is no acute ST wave changes, R-wave progression across the precordial leads is slightly prolonged, patient walked for a time period of 2 minutes 59 seconds, do a metabolic equivalent of 4 Mets, maximum heart was 113 which is below the target, conditioning was felt to be poor, she had some shortness of breath and fatigue but there is no chest pain. No dysrhythmias, Impression: Negative electrographic portion of stress echo, conditioning felt to be poor, she was below target, and this patient is not fully evaluated Follow up suggested: Patient will be discharged home when she has recovered back to normal, there is no complications, given the lower workload, physician may consider ordering a Lexiscan, to further delineate this. Clinical correlation with this will be needed
== END 2023-01-18 13:50 | disposition home or self-care (01) ==
LOC: STRESS 11:58
PROVIDERS: PCP Family Medicine; Visit Provider Family Medicine
DX: I48.0 Paroxysmal atrial fibrillation (principal)
CPT/HCPCS: 93016; 93325; 93351

== ENCOUNTER 2023-11-22 07:30 | Outpatient (CLI) | payer OTHER, SELFPAY ==
--- OUTSIDE RECORDS SUMMARY | 2023-11-22 16:02 | XMS_ITS | Clinical Summary ---
Author Name Unknown Organization [employer] [facility] Address [place], [place] [address] Care Team Providers Care Commercial Real Estate Assistant Name Role Phone Jerilyn Cervantes MD Primary Care Provider + Allergies Active Allergy Reactions Criticality Noted Date Comments Ciprofloxacin Hives 11/20/2010 Lisinopril Other - Describe In Comment Field 12/20/2011 Left arm went numb 12/17/2011 Metoprolol Other - Describe In Comment Field 12/10/2011 Left arm/torso numbness and tingling. Medications Medication Sig Dispensed Refills Start Date End Date Status cholecalciferol (VITAMIN D) 2,000 unit capsule Take 1 capsule by mouth once daily. 0 12/09/2011 Active calcium carbonate-vitamin D3, 600 mg-400 unit, (CALCIUM 600 + D) tablet Take 1 tablet by mouth 2 times daily with meals. 0 12/09/2011 Active multivitamin (MVI) tablet Take 1 tablet by mouth once daily. 0 12/09/2011 Active omega-3 fatty acids-vitamin E (FISH OIL) 1,000 mg Cap Take 2 capsules by mouth once daily. 0 12/10/2011 Active metoprolol (LOPRESSOR) 25 mg tablet Take 1 tablet by mouth 2 times daily. 180 tablet 0 12/23/2011 Active ALPRAZolam (XANAX) 0.5 mg tabletIndications:A rthritis of knee Take 1 tablet by mouth at bedtime if needed. 40 tablet 0 01/03/2012 Active amoxicillin (AMOXIL) 500 mg tabletIndications:A rthritis of knee Take 4 tablets one half hour before dental procedure. 4 tablet 4 03/15/2012 Active warfarin (Coumadin) 3 mg tablet Take 1 Tablet (3 mg) by mouth once daily. 0 12/24/2022 Active propafenone (RYTHMOL) 225 mg tabletIndications:P AF (paroxysmal atrial fibrillation) (HC) Take 1 Tablet (225 mg) by mouth every 12 hours. Due for cardiology follow up in December 2023. Please call [phone] to schedule. 180 Tablet 0 09/27/2023 Active Active Problems Problem Noted Date Diagnosed Date ACP (advance care planning) 12/21/2011 Overview: Patient has identified Health Care Agent(s): Yes Add Health Care Agents: Yes Health Care Agent(s): Primary Health Care Agent: Jose Juan Carlos Relationship: Son Secondary Health Care Agent: Alejo Rangel Relationship: Son Conservator: Relationship: Phone: Guardian: Relationship: Phone: Patient has Advance Care Plan Documents (Health Care Directive, POLST): No, Health Care Packet given to declined. Patient has identified Specific Treatment Preferences: No Specific limits to treatment preferences NOT identified: ASSUME FULL TREATMENT. Osteoporosis 12/10/2011 Anxiety state 12/10/2011 Overview: Uses as needed xanax, mainly at night for sleep. HTN (hypertension) 12/10/2011 Overview: Question white coat vs essential. Paresthesia with metoprolol Bradycardia/dizziness/palpitations 12/10/2011 Overview: Had month long heart monitor(event recorder) which was essentially normal(sinus bradycardia with occasional sinus tachycardia during sleep hours and occassional PAC's) . Dizziness has since resolved. Saw a safety glass installer from [place](Dr Mendez Jimenez) who recommended no further interventions. Heartburn 12/10/2011 Overview: Intermittent episodes of reflux, mainly at night with certain foods. Controlled with as needed TUMS. Arthritis of knee 03/15/2011 Overview: Pain in medial right knee a couple yrs ago. Progresssively worsening with ambulation. Has tried 2 injections with minimal relief. Uses acetaminophen for pain on occasion. Resolved Problems Problem Noted Date Diagnosed Date Resolved Date Anticoagulation monitoring, special range 12/23/2011 12/29/2011 Mild memory loss 12/10/2011 01/03/2012 Overview: Mild forgetfullness, (12/10/11) 09/24 on cognitive screening test(missed points for repeating numbers backwards(2 points) and missed 2 words on recall(2 points). Encounters Date Type Department Care Team Description 09/27/2023 Refill [facility] [address] [place] [address] David Meadows MD Refill Request 09/27/2023 Refill [facility] [place] [address] [place] [address] David Meadows MD Refill Request from Last 3 Months Family History Medical History Relation Name Comments Other Father GI bleeding Good Health Mother Relation Name Status Comments Father Mother Social History Tobacco Use Types Packs/Day Years Used Date Smoking Tobacco: Former Smokeless Tobacco: Never Tobacco Cessation:Counseling Given: No Comments:Quit 25-30 years ago Alcohol Use Standard Drinks/Week Comments Yes 0 (1 standard drink = 0.6 oz pur e alcohol) 1 drink a month Social Connections Answer Date Recorded Frequency of Communication with Friends and Fami ly Not on file 10/05/2021 Financial Resource Strain Answer Date R ecorded Difficulty of Paying Living Expenses Not on file 10/05/2021 Difficulty of Paying Living Expenses Not on file 10/05/2021 Sex and Gender Information Value Date Recorded Sex Assigned at Not on file Gender Identity Not on file Sexual Orientation Not on file Obstetrics History Last Filed Vital Signs Vital Sign Reading Time Taken Comments Blood Pressure 142/80 11/07/2020 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 Pulse 55 11/07/2020 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 Temperature 36.7 ??C (98.1 ??F) 12/23/2011 8:05 AM CD T Respiratory Rate 16 11/07/2020 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 Oxygen Saturation 100% 12/23/2011 8:05 AM CDT Inhaled Oxygen Concentration - - Weight 67.6 kg (149 lb) 11/07/2020 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 Height 156.2 cm (5' 1.5) 03/15/2012 3:28 PM CDT Body Mass Index 27.7 03/15/2012 3:28 PM CDT Plan of Treatment Health Maintenance Due Date Last Done Comments Tdap 1955 Depression screening for age 12+ 1956 BMI (ht and wt on same day) for age 18+ 1962 Hepatitis C screening for ag e 18-79 1962 Tetanus booster 1964 Zoster (shingles) series for age 50+ (1 of 2) 1994 DEXA/DXA scan for age 65+ 2009 Medicare Wellness for age 65+ 2009 Pneumococcal series for age 65+ (1 of 1 - PCV) 2009 COVID-19 vaccine series (5 - 2022- season) 2023 07/08/2022, 08/27/2021, 01/13/2021, Additional history exists Influenza for age 65+ 06/10/2023 Medical Devices Implanted Type Area Surveying Crew Rodman Device Identifier Shelf Expiration Date Model / Serial / Lot Baseplate Tib Sz 4 Rt Andreina Ii - [id number] Implanted:Qty: 1 on 12/20/2011 at [facility] Total Joint Right: Knee [employer] [id number] / / [id number] Cmnt Bone Surg Simplex - [id number] Implanted:Qty: 1 on 12/20/2011 at [facility] Right: Knee [facility] 6191-1-010# / / [id number] Cmnt 1/2 Dose[employer]ica - [id number] Implanted:Qty: 1 on 12/20/2011 at [facility] Right: Knee [facility] 6188-1-010# / / [id number] Compnt Fem P.S. Rt Sz [id number] - [id number] Implanted:Qty: 1 on 12/20/2011 at [facility] Right: Knee [employer] 714-# / / [id number] Insert Legion Sz3-4 9mm Ps High Flex Xlpe - [id number] Implanted:Qty: 1 on 12/20/2011 at [facility] Right: Knee [employer] [id number] / / [id number] Patellar Component Implanted:Qty: 1 on 12/20/2011 at [facility] Right: Knee [id number] / / [id number] Description:PATELLAR COMPONE NT Advance Directives Latest Code Status on File Code Status Date Activated Date Inactivated Comments Full Code 12/20/2011 1:06 PM 12/23/2011 5:33 PM Code Status History Code Status Date Activated Date Inactivated Comments Full Code 12/20/2011 5:13 AM 12/20/2011 1:06 PM Care Teams Commercial Real Estate Assistant Relationship Specialty Start Date End Date Jerilyn Cervantes MD [address] [place] [address] PCP - General Family Practice 04/19/18
--- OUTSIDE RECORDS SUMMARY | 2023-11-22 16:02 | XMS_ITS | Clinical Summary ---
Author Name Unknown Organization [facility] Address [address] [place] [address] Care Team Providers Care Study Abroad Advisor Name Role Phone Jerilyn Cervantes MD Primary Care Provider + Allergies Active Allergy Reactions Criticality Noted Date Comments Quinolones Itching 01/14/2011 Influenza Virus Vaccine Other (See Comments) 01/14/2011 Hospitalized as child Medications Medication Sig Dispensed Refills Start Date End Date Status Calcium Carbonate-Vitamin D (CALCIUM 600 + D OR) Take 2 tablets by mouth daily. 0 Active [place]-3 Fatty Acids (FISH OIL PO) Take 1 capsule by mouth daily. 0 Active Acetaminophen 500 MG TBDP Take 500 mg by mouth as needed. 1-2 tablets. 0 Active Cholecalciferol (VITAMIN D) 2000 UNIT CAPS Take 1 tablet by mouth daily. 0 Active propafenone (RYTHMOL) 150 MG TABSIndications:Ne w onset atrial fibrillation (H) Take 1 tablet (150 mg) by mouth 2 times daily 180 tablet 3 12/24/2015 Active metoprolol (LOPRESSOR) 25 MG tabletIndications: New onset atrial fibrillation (H) Take 0.5 tablets (12.5 mg) by mouth 2 times daily 90 tablet 3 12/24/2015 Active sertraline (ZOLOFT) 25 MG tabletIndications: Generalized anxiety disorder Take 2 tablets (50 mg) by mouth daily 180 tablet 3 03/02/2016 Active atorvastatin (LIPITOR) 10 MG tabletIndications: Hyperlipidemia LDL goal <130 Take 0.5 tablets (5 mg) by mouth daily 45 tablet 3 03/10/2016 Active oxyCODONE (ROXICODONE) 5 MG immediate release tablet Take 0.5-1 tablets (2.5-5 mg) by mouth every 6 hours as needed for moderate to severe pain 20 tablet 0 05/17/2016 Active omeprazole (PRILOSEC) 40 MG capsuleIndications :Gastroesophageal reflux disease without esophagitis Take 1 capsule (40 mg) by mouth daily Take 30-60 minutes before a meal. 90 capsule 1 09/03/2016 Active hydrochlorothiazid e (HYDRODIURIL) 25 MG tabletIndications: Benign essential hypertension Take 1 tablet (25 mg) by mouth daily 30 tablet 0 09/03/2016 Active lisinopril (PRINIVIL/ZESTRIL) 10 MG tablet Take 10 mg by mouth daily 0 Active gabapentin (NEURONTIN) 300 MG capsule Take 300 mg by mouth 3 times daily 0 Active warfarin (COUMADIN) 5 MG tabletIndications: New onset atrial fibrillation (H) Take 1/2 tablet daily except one tablet on Mon/Fri as directed by the anticoagulation clinic, needs an appt For INR prior to having refills. 20 tablet 0 12/14/2016 Active Active Problems Problem Noted Date Diagnosed Date Brain tumor 01/28/2016 Osteopenia 01/19/2016 Long-term (current) use of anticoagulants [Z79.0 1] 09/09/2015 Hyperlipidemia LDL goal <130 07/30/2014 Vertebral fracture 10/28/2013 Health Nursing Home 04/26/2013 Overview: State Tier Level: Tier 2 New onset atrial fibrillation 12/28/2012 Benign essential hypertension 02/23/2012 Generalized anxiety disorder 08/04/2011 Overview: Diagnosis updated by automated process. Provider to review and confirm. Palpitation 08/04/2011 Preventative health care 01/14/2011 OA (osteoarthritis) Overview: Hands and right knee Resolved Problems Problem Noted Date Diagnosed Date Resolved Date NO SHOW 08/15/2013 03/05/2014 HTN, white coat 02/23/2012 Immunizations Name Administration Dates Next Due Influenza (IIV3) PF 10/24/2012 Pneumo Conj 13-V (2010&after) 01/19/2016 Pneumococcal 23 valent 03/20/2010 TD,PF 7+ (Tenivac) 10/10/2001 TDAP Vaccine (Adacel) 03/24/2012 Zoster vaccine, live 03/14/2008 Family History Medical History Relation Comments Gastrointestinal Disease Father Arthritis Sister 2 RA Relation Status Comments Father (Age 72) Mother (Age 92) natural causes Sister 1 Alive Sister 2 Alive Social History Tobacco Use Types Packs/Day Years Used Date Smoking Tobacco: Former Cigarettes 0.2 5 Q uit: 01/14/1981 Smokeless Tobacco: Never Alcohol Use Standard Drinks/Week Comments No 0 (1 standard drink = 0.6 oz pur e alcohol) PHQ-2 Answer Date Recorded PHQ-2 Score 0 10/17/2018 Sex and Gender Information Value Date Recorded Sex Assigned at Not on file Gender Identity Not on file Sexual Orientation Not on file Last Filed Vital Signs Vital Sign Reading Time Taken Comments Blood Pressure 164/88 12/31/2018 7:40 PM CDT Educated pt on following up with PCP regarding HTN Pulse 57 12/31/2018 7:40 PM CDT Temperature 36.7 ??C (98 ??F) 12/31/2018 5:3 7 PM CDT Respiratory Rate 16 12/31/2018 8:05 PM CDT Oxygen Saturation 98% 12/31/2018 8:0 5 PM CDT Inhaled Oxygen Concentration - - Weight 62.8 kg (138 lb 6.4 oz) 12/08/2016 3:30 PM DIGITAL ASSOCIATE Height 157.5 cm (5' 2) 12/08/2016 3:30 PM DIGITAL ASSOCIATE Body Mass Index 25.31 12/08/2016 3:30 PM DIGITAL ASSOCIATE Plan of Treatment Not on file Advance Directives For more information, please contact: [phone] Latest Code Status on File Code Status Date Activated Date Inactivated Comments Full Code 11/01/2013 1:52 PM 12/31/2018 5:26 PM Code Status History Code Status Date Activated Date Inactivated Comments Full Code 10/28/2013 5:55 PM 11/01/2013 1:52 PM Care Teams Study Abroad Advisor Relationship Specialty Start Date End Date Jerilyn Cervantes MD [facility] [address] [place] [address] PCP - General Family Practice 12/08/16
--- OUTSIDE RECORDS SUMMARY | 2023-11-22 16:03 | XMS_ITS | Encounter Summary ---
Author Name Unknown Organization [facility] Address [address] [facility] [place] [address] Care Team Providers Care Jig Builder Name Role Phone Aviva Duggan MD Primary Care Prov ider Miles Martinez MD Primary Care Provider Unavailabl e Jose Juarez MD Primary Care Provider [phone] Jerilyn Cervantes MD Primary Care Provider + Jose Juarez MD Unavailable [phone] Jose Juarez MD Unavailable [phone] Encounter Details Date Type Department Care Team (Late st Contact Info) Description 07/02/2013 Office Visit-[facility] [address] [place] [phone] Zeferino Hill MD [address] [facility] [address] [place], [place] [address] Social History Tobacco Use Types Packs/Day Years Used Date Smoking Tobacco: Former Cigarettes 0.2 5 Q uit: 01/14/1981 Smokeless Tobacco: Never Alcohol Use Standard Drinks/Week Comments Yes 0 (1 standard drink = 0.6 oz pur e alcohol) occasional social only Sex and Gender Information Value Date Recorded Sex Assigned at Not on file Gender Identity Not on file Sexual Orientation Not on file documented as of this encounter Progress Notes * Zeferino Hill MD - 07/06/2013 4:07 PM CDT Progress Note Created by: Zeferino Hill M.D. [id number] DATE: 07/02/2013 PRASANTH DELCID DATE OF : 1945 AGE: [age] years old Referring Physician: AVIVA SILVESTRE Referring Clinic: ([facility]) [facility] CURRENT DIAGNOSES 1. - Atrial Fibrillation, 427.31 2. Screening For Other And Unspecified Cardiovascular Conditions, V81.2 3. - Hyperlipidemia, 272.4 4. - Bradycardia, 427.89 5. - Hypertension, 401.1 ALLERGIES Ciprofloxacin MEDICATIONS (prior to changes made today) 1. Acetaminophen Extra Strength 500 mg tablet, 1 p.o. PRN as Directed 2. alprazolam 0.5 mg tablet, 1 p.o. daily 3. calcium carbonate-vit D3-min 600 mg calcium- 200 unit Tablet, 1 p.o. daily 4. Daily Multi-Vitamin Tablet, 1 p.o. daily 5. Fish Oil 1,000 mg Capsule, 1 p.o. daily 6. hydrochlorothiazide 25 mg tablet, 1 p.o. daily 7. lisinopril 10 mg tablet, 1 p.o. twice daily 8. naproxen sodium 220 mg Tablet, Take as Directed 9. propafenone 150 mg tablet, one tablet three times daily 10. sertraline 25 mg tablet, 1 p.o. daily 11. Vitamin D 2,000 unit Capsule, 1 p.o. daily 12. warfarin 5 mg tablet, take one tablet po qhs for 2 days, then 1/2 tablet daily CHIEF COMPLAINTS HISTORY OF PRESENT ILLNESS Thank you for allowing me to participate in the care of this very delightful patient. As you know, Prasanth is a 67-year-old female of [place] descent who is very friendly but very easily excitable witha history of symptomatic paroxysmal atrial fibrillation in the background of hypertension and preserved LV function. Initially when I first met her I had her on amiodarone for short-term given that she was going to go on an extensive vacation in [place] and therefore I wanted to minimize her risk for atrial fibrillation while there. After her returning home she did complain of some blurred vision and has seen ophthalmology who is under the impression that she probably developed some early coronary deposit from the amiodarone itself. At that time I asked the patient to stop the medication and have her on flecainide given her preserved LV function. Unfortunately she continued to have blurred vision which on flecainide can cause as well. I had her stop it last Tuesday and had her come back to see me today for different options. The patient otherwise is doing well from the atrial fibrillation perspective. She cannot recall thelast time she had an episode. I have her on a low dose of beta-miguel along with flecainide to reduce the incident of slow atrial flutter with 1:1 A-V conduction. The patient has been on warfarin given her questionable history of CVA in the past. On examination, in general the patient appears friendly, healthy in no acute distress. Her blood pressure today was 118/72, heart rate 62. Lungs were clear. Cardiovascular exam normal S1, S2, no S3 no S4 it was regular. PAST HISTORY Past Medical Illnesses: osteoarthritis, used to smoke but quit, hyperlipidemia, hypertension, anxiety, osteoporosis Past Cardiac Illnesses: bradycardia, palpitations, atrial fibrillation Cardiology Procedures-NonInvasive: event monitor Aug 2011, 11/22: Echo Vascular Procedures-Noninvasive: GILBERT-Resting 2009 PMHx Echo Results: 11/22: Frequent PVCs. Mild pulmonary HTN. Trace to mild TR. Trace MR. Left Ventricular Ejection Fraction: 11/22: EF 60-65% by Echo LVEF of 60-65% documented via echocardiogram on 12/07/2012 IMPRESSION/PLAN IMPRESSION: 1.Paroxysmal atrial fibrillation, unfortunately she could not tolerate amiodarone and now flecainide due to blurry vision. 2.Hypertension well controlled. 3.History of questionable CVA. RECOMMENDATIONS: We discussed at length about the treatment options of atrial fibrillation including different antiarrhythmic drugs or catheter based ablation. The patient would like to try a different drug. I gave her the option of propafenone which is a Class 1C versus sotalol which does require the patient to be in the hospital for a couple of days to monitor the QT interval. The patient optedfor propafenone at this time. I did write a prescription for 150 mg propafenone three times a day. Certainly if she can tolerate it that would be great, it not we should consider an ablation. I told the patient that if her blurred vision persists for another week or so especially since she stopped the flecainide she should contact her laser beam color scanner operator for further evaluation. The patient will continue warfarin indefinitely given her history of questionable CVA. I would like to see Prasanth in six months time sooner should the circumstance dictate. TODAYS ORDERS 1. Return Visit 6 months Zeferino Hill M.D. documented in this encounter Plan of Treatment Not on file documented as of this encounter Visit Diagnoses Not on filedocumented in this encounter Care Teams Jig Builder Relationship Specialty Start Date End Date Aviva Duggan MD [facility] [address] [place] [address] PCP - General Family Practice 12/18/10 06/18/14 Miles Martinez MD PCP - General 06/19/14 10/20/14 Jose Juarez MD [address] [place] [phone] PCP - General Internal Medicine 10/21/14 12/07/[address] [facility] & [address] [address] PCP - General Family Practice 12/08/16 Jose Juarez MD [address] [place] [phone] PCP - Assigned PCP 06/02/14 12/12/18 Jose Juarez MD [address] [place] [phone] Assigned PCP 09/01/14 01/20/19 documented as of this encounter
--- OUTSIDE RECORDS SUMMARY | 2023-11-22 16:03 | XMS_ITS | Encounter Summary ---
Author Name Unknown Organization [facility] Address [address] [place] [address] Care Team Providers Care Cissp Name Role Phone Aviva Duggan MD Primary Care Prov ider Miles Martinez MD Primary Care Provider Unavailabl e Jose Juarez MD Primary Care Provider [phone] Jerilyn Cervantes MD Primary Care Provider + Jose Juarez MD Unavailable [phone] Jose Juarez MD Unavailable [phone] Reason for Visit * Reason Comments Medication Refill Encounter Details Date Type Department Care Team (Late st Contact Info) Description 06/17/[address] [address] Aviva Duggan MD [facility] [place] [address] Medication Refill Social History Tobacco Use Types Packs/Day Years [...] on file documented as of this encounter Plan of Treatment Not on file documented as of this encounter Visit Diagnoses Not on filedocumented in this encounter Care Teams Cissp Relationship Specialty Start Date End Date Aviva Duggan MD [facility] [address] [place] [address] PCP - General Family Practice 12/18/10 06/18/14 Miles Martinez MD PCP - General 06/19/14 10/20/14 Jose Juarez MD [address] [place] [phone] PCP - General Internal Medicine 10/21/14 12/07/16 Jerilyn Cervantes MD [facility] & [address] [address] PCP - General Family Practice 12/08/16 Jose Juarez MD [address] [place] [phone] PCP - Assigned PCP 06/02/14 12/12/18 Joes Juarez MD [address] [place] [phone] Assigned PCP 09/01/14 01/20/19 documented as of this encounter
--- OUTSIDE RECORDS SUMMARY | 2023-11-22 16:03 | XMS_ITS | Encounter Summary ---
Author Name Unknown Organization [facility] Address [address] [place] [address] Care Team Providers Care Premium Auditor Name Role Phone Aviva Duggan MD Primary Care Prov ider Miles Martinez MD Primary Care Provider Unavailabl e Jose Juarez MD Primary Care Provider [phone] Jerilyn Cervantes MD Primary Care Provider + Jose Juarez MD Unavailable [phone] Jose Juarez MD Unavailable [phone] Reason for Visit * Reason Comments Medication Refill Encounter Details Date Type Department Care Team (Late st Contact Info) Description 10/11/[address] [address] [facility] [place] [address] Medication Refill Social History Tobacco [...] documented as of this encounter Visit Diagnoses Diagnosis Anxiety- Primary Anxiety state, unspecified documented in this encounter Care Teams Premium Auditor Relationship Specialty Start Date End Date Aviva Duggan MD [facility] [address] [facility] [place] [address] PCP - General Family Practice 12/18/10 06/18/14 Miles Martinez MD PCP - General 06/19/14 10/20/14 Jose Juarez MD [address] [place] [place] [phone] PCP - General Internal Medicine 10/21/14 12/07/16 Jerilyn Cervantes MD [facility] & [address] [address] PCP - General Family Practice 12/08/16 Jose Juarez MD [address] [place] [place] [phone] PCP - Assigned PCP 06/02/14 12/12/18 Jose Juarez MD [address] [place] [place] [phone] Assigned PCP 09/01/14 01/20/19 documented as of this encounter
--- OUTSIDE RECORDS SUMMARY | 2023-11-22 16:03 | XMS_ITS | Encounter Summary ---
Author Name Unknown Organization [facility] Address [address] [place] [address] Care Team Providers Care Analytics Specialist Name Role Phone Aviva Duggan MD Primary Care Prov ider Miles Martinez MD Primary Care Provider Unavailabl e Jose Juarez MD Primary Care Provider [phone] Jerilyn Cervantes MD Primary Care Provider + Jose Juarez MD Unavailable [phone] Jose Juarez MD Unavailable [phone] Reason for Visit * Reason Comments Refill Request Encounter Details Date Type Department Care Team (Late st Contact Info) Description 04/07/[address] [address] Aviva Duggan MD [facility] [place] [address] Refill Request Social History Tobacco Use Types Packs/Day Years [...] unspecified documented in this encounter Care Teams Analytics Specialist Relationship Specialty Start Date End Date Aviva Duggan MD [facility] [address] [facility] [place] [address] PCP - General Family Practice 12/18/10 06/18/14 Miles Martinez MD PCP - General 06/19/14 10/20/14 Jose Juarez MD [address] [place] [phone] PCP - General Internal Medicine 10/21/14 12/07/16 Jerilyn Cervantes MD [facility] & [address] [address] PCP - General Family Practice 12/08/16 Jose Juarez MD [address] [place] [phone] PCP - Assigned PCP 06/02/14 12/12/18 Jose Juarez MD [address] [place] [phone] Assigned PCP 09/01/14 01/20/19 documented as of this encounter
--- OUTSIDE RECORDS SUMMARY | 2023-11-22 16:03 | XMS_ITS | Encounter Summary ---
Author Name Unknown Organization [facility] Address [address] [place] [address] Care Team Providers Care Development Lead Name Role Phone Aviva Duggan MD Primary Care Prov ider Miles Martinez MD Primary Care Provider Unavailabl e Jose Juarez MD Primary Care Provider [phone] Jerilyn Cervantes MD Primary Care Provider + Jose Juarez MD Unavailable [phone] Jose Juarez MD Unavailable [phone] Reason for Visit * Reason Comments Refill Request Encounter Details Date Type Department Care Team (Late st Contact Info) Description 07/17/[address] [address] Aviva Duggan MD [facility] [place] [address] Refill Request Social History Tobacco [...] as of this encounter Visit Diagnoses Diagnosis Adjustment disorder with mixed anxiety and depressed mood- Primary documented in this encounter Care Teams Development Lead Relationship Specialty Start Date End Date Aviva Duggan MD [facility] [address] [facility] [place] [address] PCP - General Family Practice 12/18/10 06/18/14 Miles Martinez MD PCP - General 06/19/14 10/20/14 Jose Juarez MD [address] [place] [phone] PCP - General Internal Medicine 10/21/14 12/07/16 Jerilyn Cervantes MD [facility] & [address] [address] PCP - General Family Practice 12/08/16 Jose Juarez MD [address] [place] [phone] PCP - Assigned PCP 06/02/14 12/12/18 Jose Juarez MD [address] [place] [phone] Assigned PCP 09/01/14 01/20/19 documented as of this encounter
--- OUTSIDE RECORDS SUMMARY | 2023-11-22 16:03 | XMS_ITS | Encounter Summary ---
Author Name Unknown Organization [facility] Address [address] [place] [address] Care Team Providers Care Owner [employer] Name Role Phone Jose Juarez MD Primary Care Provider Jerilyn Cervantes MD Primary Care Provider + Jose Juarez MD Unavailable [phone] Jose Juarez MD Unavailable [phone] Reason for Visit * Reason Comments Medication Refill Encounter Details Date Type Department Care Team (Late st Contact Info) Description 04/02/2015 Refill [facility] [address] [place] [address] Aviva Duggan MD [facility] [place], [place] [id number] Medication Refill Social History Tobacco Use Types [...] unspecified documented in this encounter Care Teams Owner [employer] Relationship Specialty Start Date End Date Jose Juarez MD [address] [place] [phone] PCP - General Internal Medicine 10/21/14 12/07/16 Jerilyn Cervantes MD [address] [address] PCP - General Family Practice 12/08/16 Jose Juarez MD [address] [place] [phone] PCP - Assigned PCP 06/02/14 12/12/18 Jose Juarez MD [address] [place] [phone] Assigned PCP 09/01/14 01/20/19 documented as of this encounter
--- OUTSIDE RECORDS SUMMARY | 2023-11-22 16:03 | XMS_ITS | Encounter Summary ---
Author Name Unknown Organization [place] Address [address] [place] [address] Care Team Providers Care Loop Tacker Name Role Phone Aviva Duggan MD Primary Care Prov ider Miles Martinez MD Primary Care Provider Unavailabl e Jose Juarez MD Primary Care Provider Jerilyn Cervantes MD Primary Care Provider + Jose Juarez MD Unavailable [phone] Jose Juarez MD Unavailable [phone] Encounter Details Date Type Department Care Team (Late st Contact Info) Description 01/11/2013 Office Visit-[facility] [address] [place] [phone] Zeferino Hill MD [address] [facility] [address] [place], [place] [id number] Social History Tobacco Use Types Packs/Day Years [...] Progress Notes * Zeferino Hill MD - 01/16/2013 10:45 AM CDT Progress Note Created by: Zeferino Hill M.D. [id number] DATE: 01/11/2013 PRASANTH DELCID DATE OF : 1945 AGE: [age] years old Referring Physician: AVIVA GUZMAN Referring Clinic: [facility] CURRENT DIAGNOSES 1. - Bradycardia, 427.89 2. - Hypertension, 401.1 3. - Atrial Fibrillation, 427.31 4. Screening For Other And Unspecified Cardiovascular Conditions, V81.2 ALLERGIES Ciprofloxacin MEDICATIONS (prior to changes made today) 1. Acetaminophen Extra Strength 500 mg tablet, 1 p.o. PRN as Directed 2. alprazolam 0.5 mg Tablet, Take as Directed 3. amiodarone 200 mg tablet, one tablet twice daily for three weeks, then one tablet daily 4. calcium carbonate-vit D3-min 600 mg calcium- 200 unit Tablet, 1 p.o. daily 5. Daily Multi-Vitamin Tablet,1 p.o. daily 6. Fish Oil 1,000 mg Capsule, 1 p.o. daily 7. lisinopril 10 mg tablet, 1 p.o. twice daily 8. naproxen sodium 220 mg Tablet, Take as Directed 9. sertraline 25 mg tablet, 1 p.o. daily HS 10. Vitamin D 2,000 unit Capsule, 1 p.o. daily 11. Xarelto 20 mg tablet, 1 p.o. daily CHIEF COMPLAINTS Atrial Fibrillation, EP consultation and review sleep study HISTORY OF PRESENT ILLNESS: I was asked by my partner, Dr. Tomlin to see the patient for evaluationof atrial fibrillation. As you know, Mrs. Delcid is a delightful 67-year-old female with a longstanding history of symptomatic paroxysmal atrial fibrillation for the past several years now in the background of hypertension and normal LV function. She describes these episodes as sudden onset ofpalpitations along with shortness of breath and anxious feelings. The patient has been on a low dose beta-miguel mostly because of the slow heart rate. She has been Xarelto but is quite anxious about it because of the cost of it. The patient is looking forward to a return to home country, which [facility] in the next month for a one-month visit. The burden of her atrial fibrillation seems to be increasing over the past few months. Her last echocardiogram was performed a few months ago demonstrated ejection fraction of 60-65%. She had a normal left atrial size. I did review the EKG and concur there was atrial fibrillation with rapid ventricular response from this past November. The patient did have a sleep study done and was noted to have frequent atrial fibrillation. She was not told she had sleep apnea. She otherwise has been very active denies any chest pain or chest discomfort, orthopnea, or PND. On examination, in general the patient appears friendly, healthy in no acute distress. Blood pressure is 158/78, heart rate 52. Her lungs were clear. Cardiovascular exam normal S1, S2 no S3, S4 it was regular. Abdomen is soft. IMPRESSION AND RECOMMENDATIONS: Mrs. Delcid is a delightful 67-year-old female who has been having symptomatic paroxysmal atrial fibrillation with burden increasing despite being on low dose beta-miguel along with anticoagulation. At today's discussion we discussed at length regarding the natu ral progression of atrial fibrillation and its potential complications including tachycardia induced cardiomyopathy and CVA. The etiology of her atrial fibrillation appears to be from her age and likely history of hypertension, as the patient does not have sleep apnea or endocrine abnormalities. Lastly we discussed treatment options including medical therapy versus ablation. As the patient is looking forward to return home for a one month visit for short-term I would give her the best antiarrhythmic drug for maintaining sinus rhythm that would be amiodarone. I would like to load her at 200mg b.i.d. for three weeks and then after that once a day. I did go over the side effects of the drug for the patient including inflammation of thyroid, liver or lungs. I anticipate that her bradycardia will get worse so therefore would stop her metoprolol and increase her lisinopril to cover the rise in the blood pressure. I asked her to continue to check her blood pressure as the lisinopril could be titrated up for better control. Ideally it should be at 140/90 or less. PAST HISTORY Past Medical Illnesses: osteoarthritis, used [...] of 60-65% documented via echocardiogram on 12/07/2012 PHYSICAL EXAMINATION VITAL SIGNS: Blood Pressure: 158/78Sitting, Right arm, regular cuff Pulse- 52.00/min. Weight- 118.20 lbs. Height- 61 BMI Measurement: 22 CONSTITUTIONAL NAD, alert and oriented, ambulating halls without difficulty, no orthostatic change in BP SKIN warm and dry HEAD atraumatic EYES EOMI, pupils round and equal ENT tongue midline, speech normal NECK supple without JVD, no bruit CHEST clear to ascultation CARDIAC normal 1st and 2nd heart sounds without murmur or gallop ABDOMEN non-tender EXTREMITIES & BACK no edema PSYCHIATRIC appropriate in answers NEUROLOGICAL motor grossly symmetrical MEDICATIONS UPDATED/STARTED TODAY: amiodarone 200 mg tablet, one tablet twice daily for three weeks, then one tablet daily, #90 (Ninety) lisinopril 10 mg tablet, 1 p.o. twice daily, #60 (Sixty) MEDICATIONS REFILLED/STOPPED TODAY: Aspirin Low Dose 81 mg tablet,delayed release (DR/EC) 1 p.o. daily #0 (Zero) Physician Order, lisinopril 10 mg tablet 1 p.o. daily #30 (Thirty) Dosage Increased and metoprolol succinate 25 mg tablet extended release 24 hr 1 p.o. daily #0 (Zero) Physician Order IMPRESSIONS/PLAN The patient will continue with Xarelto for now given her [id number] score of at 3 given her beinga female, age and history of hypertension. I would agree with anticoagulant. After she gets back from [place] I would have her on Coumadin to save her the expense. I gave her samples of Xarelto to help with the cost of it. I would like to see her back in three months time for reassessment. At that time we will check her thyroid, liver and PFT provided she would like to continue with amiodarone. At that time certainly another option would be a Class 1C antiarrhythmic drug versus an ablation. Zeferino Hill M.D. documented in this encounter Plan of Treatment Not on file documented as of this encounter Visit Diagnoses Not on filedocumented in this encounter Care Teams Loop Tacker Relationship Specialty Start Date End Date Aviva Duggan MD [facility] [address] [place] [address] PCP - General Family Practice 12/18/10 06/18/14 Miles Martinez MD PCP - General 06/19/14 10/20/14 Jose Juarez MD [address] [place] [phone] PCP - General Internal Medicine 10/21/14 12/07/16 Jerilyn Cervantes MD [facility] & [address] [address] PCP - General Family Practice 12/08/16 Jose Juarez MD [address] [place] [phone] PCP - Assigned PCP 06/02/14 12/12/18 Jose Juarez MD [address] [place] [phone] Assigned PCP 09/01/14 01/20/19 documented as of this encounter
--- OUTSIDE RECORDS SUMMARY | 2023-11-22 16:03 | XMS_ITS | Encounter Summary ---
Author Name Unknown Organization [place] Address [address] [facility] [place] [address] Care Team Providers Care Pipe And Boiler Covers Supervisor Name Role Phone Aviva Duggan MD Primary Care Prov ider Miles Martinez MD Primary Care Provider Unavailabl e Jose Juarez MD Primary Care Provider [phone] Jerilyn Cervantes MD Primary Care Provider + Jose Juarez MD Unavailable [phone] Jose Juarez MD Unavailable [phone] Encounter Details Date Type Department Care Team (Late st Contact Info) Description 05/08/2013 Office Visit-[facility] [address] [place] [phone] Zeferino Hill MD [address] [facility] [address] [place], [place] [phone] Social History Tobacco Use Types Packs/Day Years [...] Progress Notes * Zeferino Hill MD - 05/14/2013 10:35 AM CDT Progress Note Created by: Zeferino Hill M.D. [id number] DATE: 05/08/2013 PRASANTH DELCID DATE OF : 1945 AGE: [age] years old Referring Physician: AVIVA SILVESTRE Referring Clinic: [facility] CURRENT DIAGNOSES 1. - Atrial Fibrillation, 427.31 2. - Hyperlipidemia, 272.4 3. Screening For Other And Unspecified Cardiovascular Conditions, V81.2 4. - Bradycardia, 427.89 5. - Hypertension, [...] 1,000 mg Capsule, 1 p.o. daily 6. flecainide 50 mg tablet, 1 p.o. twice daily 7. hydrochlorothiazide 25 mg tablet, 1 p.o. daily 8. lisinopril 10 mg tablet, 1 p.o. twice daily 9. metoprolol succinate 25 mg tablet extended release 24 hr, 1 p.o. daily 10. naproxen sodium 220 mg Tablet, Take as Directed 11. sertraline 25 mg tablet, 1 p.o. daily 12. Vitamin D 2,000 unit Capsule, 1 p.o. daily 13. warfarin 5 mg tablet, take one tablet po qhs for 2 days, then 1/2 tablet daily CHIEF COMPLAINTS cardiac assessment and discuss medication HISTORY OF PRESENT ILLNESS Thank you for allowing me to participate in the care of this delightful patient. As you know, Prasanth is a 67-year-old female of [place] descent, very friendly but easily excitable, with a history of symptomatic paroxysmal atrial fibrillation in a background of hypertension and normal LV function. I started her on amiodarone initially as her first-line given that she is going to be away visiting her family in [place] for at least three months and I thought this drug would be the best to maintain sinus rhythm. I saw her for followup just a few weeks ago. At that time she was doing really well andwas quite pleased with her atrial fibrillation burden. I had her continue at a low dose of amiodarone and switched her Xarelto to Coumadin because of her history of questionable CVA. Unfortunately, the patient developed some blurred vision and actually has seen her opthmalogist who told her that she does have intrinsic eye problem, very likely to be from the amiodarone which is known to cause blurred vision. In light of that she asked to see me to discuss options. The patient otherwise remains active and healthy. She denies any chest pain or chest discomfort. Her blood pressure is relatively well controlled on her current medical therapy. On examination, in general the patient appears very friendly, healthy, in no acute distress. Her blood pressure today was 148/80, heart rate 60. Lungs were clear. Cardiovascular exam: Normal S1 and s2, no S3 or S4. Rhythm was regular. PAST HISTORY Past Medical Illnesses: [...] 12/07/2012 PHYSICAL EXAMINATION VITAL SIGNS: Blood Pressure: 148/80Sitting, Left arm, regular cuff Pulse- 60.00/min. Weight- 125.20 lbs. Height- 61 BMI Measurement: 23 CONSTITUTIONAL well developed, well nourished, in no acute distress SKIN warm and dry HEAD atraumatic EYES EOMI, pupils round and equal ENT ears, nose and throat unremarkable NECK supple without JVD, no bruit CHEST clear to ascultation CARDIAC normal 1st and 2nd heart sounds without murmur or gallop EXTREMITIES & BACK no edema PSYCHIATRIC appropriate in answers NEUROLOGICAL motor grossly symmetrical MEDICATIONS UPDATED/STARTED TODAY: alprazolam 0.5 mg tablet, 1 p.o. daily, #0 (Zero) flecainide 50 mg tablet, 1 p.o. twice daily, #60 (Sixty) metoprolol succinate 25 mg tablet extended release 24 hr, 1 p.o. daily, #30 (Thirty) sertraline 25 mg tablet, 1 p.o. daily, #0 (Zero) MEDICATIONS REFILLED/STOPPED TODAY: alprazolam 0.5 mg Tablet Take as Directed #0 (Zero) Dosage Increased, amiodarone 200 mg tablet 1 p.o. daily #0 (Zero) Patient Terminated and sertraline 25 mg tablet 1 p.o. daily HS #0 (Zero) Dosage Increased IMPRESSIONS/PLAN IMPRESSION/RECOMMENDATIONS: Prasanth is a delightful 67-year-old female with a history of symptomaticparoxysmal atrial fibrillation in a background of preserved LV function and hypertension. We discussed options of different antiarrhythmic drugs versus an ablation. After further discussion we opted for a trial of flecainide at a low dose of 50 mg q.d. Also, we will have her start on a low dose of beta-miguel to reduce the incidence of 1:1 AV conduction should the patient develop slow atrial flutter from the flecainide itself. The patient will continue with the warfarin indefinitely. I did go over the side effects of the drugs for the patient. I would like to see the patient back in three months' time for reassessment. In the meantime, the patient is scheduled to see you this Tuesday for a physical examination and at that time I would appreciate an EKG and fax it to us. Thank you. TODAYS ORDERS 1. Return Visit 3 months Zeferino Hill M.D. documented in this encounter Plan of Treatment Not on file documented as of this encounter Visit Diagnoses Not on filedocumented in this encounter Care Teams Pipe And Boiler Covers Supervisor Relationship Specialty Start Date End Date Aviva Duggan MD [facility] [address] [place] [address] PCP - General Family Practice 12/18/10 06/18/14 Miles Martinez MD PCP - General 06/19/14 10/20/14 Jose Juarez MD [address] [place] [phone] PCP - General Internal Medicine 10/21/14 12/07/16 Jerilyn Cervantes MD [facility] & [address] [address] PCP - General Family Practice 12/08/16 Jose Juarez MD [address] [place] [phone] PCP - Assigned PCP 06/02/14 12/12/18 Jose Juarez MD [address] [place] [phone] Assigned PCP 09/01/14 01/20/19 documented as of this encounter
--- OUTSIDE RECORDS SUMMARY | 2023-11-22 16:03 | XMS_ITS | Encounter Summary ---
Author Name Unknown Organization [place] Address [address] [place] [address] Care Team Providers Care Medical Lab Technician Name Role Phone Jose Juarez MD Primary Care Provider Jerilyn Cervantes MD Primary Care Provider + Jose Juarez MD Unavailable [phone] Jose Juarez MD Unavailable [phone] Reason for Visit * Reason Onset Date Comments Erroneous encounter-disregard 08/26/2015 op ened by mistake Encounter Details Date Type Department Care Team (Late st Contact Info) Description 08/26/[address] [place] [address] [place] [phone] Aviva Duggan MD [facility] [address] [place] [address] Erroneous encounter-disregard (opened by mistake) Social History Tobacco Use Types Packs/Day Years [...] on file documented as of this encounter Miscellaneous Notes * Telephone Encounter - Lakeisha Hernández - 08/26/2015 1:09 PM CST Last OV 05/24/14 N FREIGHT AGENT documented in this encounter Plan of Treatment Not on file documented as of this encounter Visit Diagnoses Not on filedocumented in this encounter Care Teams Medical Lab Technician Relationship Specialty Start Date End Date Jose Juarez MD [address] [place] [phone] PCP - General Internal Medicine 10/21/14 12/07/16 Jerilyn Cervantes MD [facility] & [address] [address] PCP - General Family Practice 12/08/16 Jose Juarez MD [address] [place] [phone] PCP - Assigned PCP 06/02/14 12/12/18 Jose Juarez MD [address] [place] [phone] Assigned PCP 09/01/14 01/20/19 documented as of this encounter
--- OUTSIDE RECORDS SUMMARY | 2023-11-22 16:03 | XMS_ITS | Encounter Summary ---
Author Name Unknown Organization [place] Address [address] [facility] [place] [address] Care Team Providers Care Home Health Speech Therapist Name Role Phone Aviva Duggan MD Primary Care Prov ider Miles Martinez MD Primary Care Provider Unavailabl e Jose Juarez MD Primary Care Provider Jerilyn Cervantes MD Primary Care Provider + Jose Juarez MD Unavailable [phone] Jose Juarez MD Unavailable [phone] Encounter Details Date Type Department Care Team (Late st Contact Info) Description 12/14/2012 Office Visit-[facility] [place] [id number] [place] [phone] Janene Mcgill, BAKERY SUPERVISOR RESEARCH STUDY ASSISTANT Social History Tobacco Use Types Packs/Day Years [...] as of this encounter Progress Notes * Janene Mcgill NP - 12/14/2012 3:05 PM CST Progress Note Created by: Janene Archuleta N.P. DATE: 12/14/2012 PRASANTH DELCID DATE OF : 1945 AGE: [age] years old Referring Physician: AVIVA GUZMAN Referring Clinic: [facility] CURRENT DIAGNOSES 1. - Bradycardia, 427.89 2. - Hypertension, 401.1 3. - Atrial Fibrillation, 427.31 4. Screening For Other And Unspecified Cardiovascular Conditions, V81.2 ALLERGIES Ciprofloxacin MEDICATIONS (prior to changes made today) 1. Acetaminophen Extra Strength 500 mg tablet, 1 p.o. PRN as Directed 2. alprazolam 0.5 mg Tablet, Take as Directed 3. Aspirin Low Dose 81 mg tablet,delayed release (DR/EC), 1 p.o. daily 4. calcium carbonate-vit D3-min 600 mg calcium- 200 unit Tablet, 1 p.o. daily 5. Daily Multi-Vitamin Tablet, 1 p.o. daily 6. Fish Oil 1,000 mg Capsule, 1 p.o. daily 7. lisinopril 10 mg tablet, 1 p.o. daily 8. metoprolol succinate 25 mg tablet extended release 24 hr, 1 p.o. daily 9. naproxen sodium 220 mg Tablet, Take as Directed 10. sertraline 25 mg tablet, 1 p.o. daily HS 11. Vitamin D 2,000 unit Capsule, 1 p.o. daily 12. Xarelto 20 mg tablet, 1 p.o. daily CHIEF COMPLAINTS Follow Up HISTORY OF PRESENT ILLNESS Mr. Delcid is a delightful 67-year-old female [place] immigrant who presents in clinic for a follow up of atrial fibrillation and hypertension. She saw Dr. Tomlin in consultation lats month. In the past she saw Dr. Jimenez for episodes of bradycardia. She has been to urgent care and the emergency room a couple of times for irregular fast heart rate and palpitations. Recently on November 23 she represented to the ED in atrial fibrillation with rapid ventricular response. She is on lisinopril and low dose metoprolol for control of her hypertension. Dr. Tomlin increased her Lisinopril at her last visit as she was hypertensive. He also started her on Xarelto for a CHADS VASC score of 3. An ech ocardiogram, blood work and sleep study was ordered. He also recommended follow up with EP if her paroxysms of a-fib became more prominent. Echocardiogram showed a normal LVEF with normal LV and RV size and function. There were no significant valvular abnormalities. Her RVSP was 32 consistant with mild pulmonary hypertension. She denies any chest pain, chest pressure, shortness of breath, syncope, near- syncope or edema. Shehas one 30 minute episode of palpitations since she saw Dr. Tomlin. She is tolerating his medication changes. Her blood pressure was initially elevated but was normal upon my retake. PAST HISTORY Past Medical Illnesses: osteoarthritis, used to smoke but quit, hyperlipidemia, hypertension, anxiety, osteoporosis Past Cardiac Illnesses: bradycardia, palpitations, atrial fibrillation Cardiology Procedures-NonInvasive: event monitor Aug 2011, 11/22: Echo Vascular Procedures-Noninvasive: GILBERT-Resting 2009 PMHx Echo Results: 11/22: Frequent PVCs. Mild pulmonary HTN. Trace to mild TR. 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 EYES vision changes EARS, NOSE, THROAT, MOUTH denies any hearing loss, epistaxis, hoarseness or difficulty speaking. RESPIRATORY denies dyspnea, snoring, cough, wheezing or hemoptysis. 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 HEMATOLOGICAL/IMMUNOLOGIC medication allergies PHYSICAL EXAMINATION VITAL SIGNS: Blood Pressure: 140/78 130/76 Retaken by BALL WORKER/PA Pulse- 60.00/min. Weight- 121.00 lbs. Height- 61 CONSTITUTIONAL NAD, alert and oriented, ambulating halls without difficulty, no orthostatic change in BP SKIN warm and dry HEAD atraumatic EYES EOMI, pupils round and equal ENT tongue midline, speech normal NECK supple without JVD, no bruit CHEST clear to ascultation CARDIAC RRR without murmur/lift/thrill ABDOMEN non-tender PERIPHERAL PULSES good radial EXTREMITIES & BACK no edema PSYCHIATRIC appropriate in answers NEUROLOGICAL motor grossly symmetrical IMPRESSIONS/PLAN 1. Paroxysmal atrial fibrillation. Episodes are infrequent. Heart structure and function is normal.We discussed triggers to avoid. She will be having a sleep study to evaluate for sleep apnea. We will continue her on Xarelto and Metoprolol. If her paroxysms increase then she should have some form of monitoring with either a Holter or event and be referred to our EP service for consideration of ablation per Dr. Tomlin's recommendations. 2. Hypertension. Needs close follow up. Controlled today on current medications. Could continue to titrate lisinopril and consider addition of HCTZ. I have encouraged her to continue to follow with Dr. Guzman for blood pressure management. 3. Elevated RVSP. Heart structure and function is normal. She will be having a sleep study. She is not short of breath nor having issues with CHF symptoms. Her hypertension could likely cause this issue and optimal blood pressure control with a SBP around 120 or less would be ideal. I have encouraged her to continue to follow with Dr. Guzman for blood pressure management TODAYS ORDERS 1. F/U with Raza Tomlin MD 1 year Janene Mcgill. N.P. documented in this encounter Plan of Treatment Not on file documented as of this encounter Visit Diagnoses Not on filedocumented in this encounter Care Teams Home Health Speech Therapist Relationship Specialty Start Date End Date Aviva Duggan MD [facility] [address] [place] [address] PCP - General Family Practice 12/18/10 06/18/14 Miles Martinez MD PCP - General 06/19/14 10/20/14 Jose Juarez MD [address] [place] [phone] PCP - General Internal Medicine 10/21/14 12/07/16 Jerilyn Cervantes MD [facility] & [address] [address] PCP - General Family Practice 12/08/16 Jose Juarez MD [address] [place] [phone] PCP - Assigned PCP 06/02/14 12/12/18 Jose Juarez MD [address] [place] [phone] Assigned PCP 09/01/14 01/20/19 documented as of this encounter
--- OUTSIDE RECORDS SUMMARY | 2023-11-22 16:03 | XMS_ITS | Encounter Summary ---
Author Name Unknown Organization [facility] Address [address] [place] [address] Care Team Providers Care Student Services Advisor Name Role Phone Aviva Duggan MD Primary Care Prov ider Miles Martinez MD Primary Care Provider Unavailabl e Jose Juarez MD Primary Care Provider Jerilyn Cervantes MD Primary Care Provider + Jose Juarez MD Unavailable [phone] Jose Juarez MD Unavailable [phone] Reason for Visit * Reason Comments Refill Request Encounter Details Date Type Department Care Team (Late st Contact Info) Description 07/10/[address] [address] Aviva Duggan MD [facility] [place] [address] Refill Request Social History Tobacco [...] as of this encounter Visit Diagnoses Diagnosis Depression- Primary Depressive disorder, not elsewhere classified documented in this encounter Care Teams Student Services Advisor Relationship Specialty Start Date End Date Aviva Duggan MD [facility] [address] [facility] [place] [address] PCP - General Family Practice 12/18/10 06/18/14 Miles Martinez MD PCP - General 06/19/14 10/20/14 Jose Juarez MD [address] [place] [phone] PCP - General Internal Medicine 10/21/14 12/07/16 Jerilyn Cervantes MD [facility] & [address] [address] PCP - General Family Practice 12/08/16 Jose Juarez MD [address] [place] [phone] PCP - Assigned PCP 06/02/14 12/12/18 Jose Juarez MD [address] [place] [phone] Assigned PCP 09/01/14 01/20/19 documented as of this encounter
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
--- OUTSIDE RECORDS SUMMARY | 2023-11-22 16:03 | XMS_ITS | Encounter Summary ---
Author Name Unknown Organization [facility] Address [address] [place] [address] Care Team Providers Care Fiberglass Pipe Covering Supervisor Name Role Phone Aviva Duggan MD Primary Care Prov ider Miles Martinez MD Primary Care Provider Unavailabl e Jose Juarez MD Primary Care Provider [phone] Jerilyn Cervantes MD Primary Care Provider + Jose Juarez MD Unavailable [phone] Jose Juarez MD Unavailable [phone] Reason for Visit * Reason Comments Medication Refill Encounter Details Date Type Department Care Team (Late st Contact Info) Description 09/09/[address] [address] [facility] [place] [address] Medication Refill Social History Tobacco [...] encounter Miscellaneous Notes * Telephone Encounter - Yury Jamila - 09/11/2013 11:33 AM CST Last seen-05/11/13 ICAL SERVICES PROFESSIONAL documented in this encounter Plan of Treatment Not on file documented as of this encounter Visit Diagnoses Diagnosis HTN (hypertension)- Primary Unspecified essential hypertension documented in this encounter Care Teams Fiberglass Pipe Covering Supervisor Relationship Specialty Start Date End Date Aviva Duggan MD [facility] [address] [place] [address] PCP - General Family Practice 12/18/10 06/18/14 Miles Martinez MD PCP - General 06/19/14 10/20/14 Jose Juarez MD [address] [place] [phone] PCP - General Internal Medicine 10/21/14 12/07/16 Jerilyn Cervantes MD [facility] & [address] [address] PCP - General Family Practice 12/08/16 Jose Juarez MD [address] [place] [phone] PCP - Assigned PCP 06/02/14 12/12/18 Jose Juarez MD [address] [place] [phone] Assigned PCP 09/01/14 01/20/19 documented as of this encounter
--- OUTSIDE RECORDS SUMMARY | 2023-11-22 16:03 | XMS_ITS | Encounter Summary ---
Author Name Unknown Organization [facility] Address [address] [place] [address] Care Team Providers Care Wheelage Clerk Name Role Phone Aviva Duggan MD Primary Care Prov ider Miles Martinez MD Primary Care Provider Unavailabl e Jose Juarez MD Primary Care Provider Jerilyn Cervantes MD Primary Care Provider + Jose Juarez MD Unavailable [phone] oJse Juarez MD Unavailable [phone] Reason for Visit * Reason Comments Refill Request Encounter Details Date Type Department Care Team (Late st Contact Info) Description 04/13/[address] [address] Aviva Duggan MD [facility] [place] [address] Refill Request Social History Tobacco [...] classified documented in this encounter Care Teams Wheelage Clerk Relationship Specialty Start Date End Date Aviva Duggan MD [facility] [address] [place] [address] PCP - General Family Practice 12/18/10 06/18/14 Miles Martinez MD PCP - General 06/19/14 10/20/14 Jose Juarez MD [address] [place] [phone] PCP - General Internal Medicine 10/21/14 12/07/16 Jerilyn Cervantes MD [facility] & [address] [address] PCP - General Family Practice 12/08/16 Jose Juarez MD [address] [place] [phone] PCP - Assigned PCP 06/02/14 12/12/18 Jose Juarez MD [address] [place] [phone] Assigned PCP 09/01/14 01/20/19 documented as of this encounter
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
--- OUTSIDE RECORDS SUMMARY | 2023-11-22 16:03 | XMS_ITS | Encounter Summary ---
Author Name Unknown Organization [place] Address [address] [facility] [place] [address] Care Team Providers Care Auditing Manager Name Role Phone Aviva Duggan MD Primary Care Prov ider Miles Martinez MD Primary Care Provider Unavailabl e Jose Juarez MD Primary Care Provider Jerilny Cervantes MD Primary Care Provider + Jose Juarez MD Unavailable [phone] Jose Juarez MD Unavailable [phone] Encounter Details Date Type Department Care Team (Late st Contact Info) Description 04/06/2013 Office Visit-[facility] [address] [place] [phone] Zeferino Hill MD [address] [facility] [address] [place], [place] [address] Social History Tobacco Use Types Packs/Day Years [...] Progress Notes * Zeferino Hill MD - 04/10/2013 3:28 PM CDT Progress Note Created by: Zeferino Hill M.D. [id number] DATE: 04/06/2013 PRASANTH DELCID DATE OF : 1945 AGE: [age] years old Referring Physician: AVIVA GUZMAN Referring Clinic: [facility] CURRENT DIAGNOSES 1. - Atrial Fibrillation, 427.31 2. - Hyperlipidemia, 272.4 3. Screening For Other And Unspecified Cardiovascular Conditions, V81.2 4. - Bradycardia, 427.89 5. - Hypertension, 401.1 ALLERGIES Ciprofloxacin MEDICATIONS (prior to changes made today) 1. Acetaminophen Extra Strength 500 mg tablet, 1 p.o. PRN as Directed 2. alprazolam 0.5 mg Tablet, Take as Directed 3. amiodarone 200 mg tablet, 1 p.o. daily 4. calcium carbonate-vit D3-min 600 mg calcium- 200 unit Tablet, 1 p.o. daily 5. Daily Multi-Vitamin Tablet, 1 p.o. daily 6. Fish Oil 1,000 mg Capsule, 1 p.o. daily 7. hydrochlorothiazide 25 mg tablet, 1 p.o. daily 8. lisinopril 10 mg tablet, 1 p.o. twice daily 9. naproxen sodium 220 mg Tablet, Take as Directed 10. sertraline 25 mg tablet, 1 p.o. daily HS 11. Vitamin D 2,000 unit Capsule, 1 p.o. daily 12. warfarin 5 mg tablet, take one tablet po qhs for 2 days, then 1/2 tablet daily CHIEF COMPLAINTS follow up -a-fib and Medication check HISTORY OF PRESENT ILLNESS Thank you for allowing me to participate in the care of this delightful patient. As you know, Ms. Delcid is a 67-year-old female of [place] decent. I first saw her a few months ago for recurrent symptomatic atypical atrial fibrillation in the background of hypertension and normal LV function. At that time I recommended her to be on amiodarone given that she was going to spend a month in [place] for vacation along with Xarelto. I asked her to come back today to discuss alf treatment andalso the fact that she wished to be on something less expensive for anticoagulation. The patient otherwise has been very pleased with how things turned out. She cannot recall the last time that she felt palpitations. As you know she is a very excitable person and has a lot of concerns for which I answered all of her questions and appeared to alleviate her concerns. Otherwise, the patient denies any orthopnea, PND, chest pain, or chest discomfort. PHYSICAL EXAMINATION: In general, the patient appears very excitable in a good way. Blood pressure is 140/80. Heart rate is 52. Lungs were clear. Cardiovascular exam reveals a normal S1 and S2. No S3or S4. Rhythm was regular. PAST HISTORY Past [...] Pressure: 148/80Sitting, Left arm, regular cuff Pulse- 52.00/min. Weight- 122.00 lbs. Height- 61 BMI Measurement: 23 CONSTITUTIONAL [...] MEDICATIONS UPDATED/STARTED TODAY: amiodarone 200 mg tablet, 1 p.o. daily, #0 (Zero) hydrochlorothiazide 25 mg tablet, 1 p.o. daily, #0 (Zero) warfarin 5 mg tablet, take one tablet po qhs for 2 days, then 1/2 tablet daily, #30 (Thirty) MEDICATIONS REFILLED/STOPPED TODAY: amiodarone 200 mg tablet one tablet twice daily for three weeks, then one tablet daily #90 (Ninety)Dosage Decreased and Xarelto 20 mg tablet 1 p.o. daily #30 (Thirty) Physician Order IMPRESSION/RECOMMENDATIONS: Ms. Delcid is a delightful 67-year-old female with a longstanding history of symptomatic paroxysmal atrial fibrillation in the background of hypertension and normal LV function. She has been doing quite well on amiodarone and anticoagulation. The patient will benefit from the continuation of anticoagulation. I took the liberty of stopping the Xarelto and having her on Coumadin. I introduced her to our Anticoagulation Clinic. For her atrial fibrillation, I would proceed with a rhythm control strategy. I was thinking of a Class I C antiarrhythmic agent. Given the fact that she has had recurrent atrial fibrillation in the past and the fact that she seems to tole rate the amiodarone quite well, I will continue with her current medical therapy. I would like to obtain an ALT and TSH level today as the patient is on amiodarone. The patient seems to be doing quite well. I would like to see her back in six months' time for reassessment. TODAYS ORDERS 1. Return Visit Anticoagulation Clinic Today 2. ALT Today 3. TSH Today 4. Return Visit 6 months Zeferino Hill M.D. documented in this encounter Plan of Treatment Not on file documented as of this encounter Visit Diagnoses Not on filedocumented in this encounter Care Teams Auditing Manager Relationship Specialty Start Date End Date Aviva Duggan MD [facility] [address] [place] [address] PCP - General Family Practice 12/18/10 06/18/14 Miles Martinez MD PCP - General 06/19/14 10/20/14 Jose Juarez MD [address] [place] [phone] PCP - General Internal Medicine 10/21/14 12/07/16 Jerilyn Cervantes MD [facility] & [address] [address] PCP - General Family Practice 12/08/16 Jose Juarez MD [address] [place] [phone] PCP - Assigned PCP 06/02/14 12/12/18 Jose Juarez MD [address] [place] [phone] Assigned PCP 09/01/14 01/20/19 documented as of this encounter
--- OUTSIDE RECORDS SUMMARY | 2023-11-22 16:03 | XMS_ITS | Encounter Summary ---
Author Name Unknown Organization [place] Address [address] [place] [address] Care Team Providers Care Lathe Setup Operator Name Role Phone Aviva Duggan MD Primary Care Prov ider Miles Martinez MD Primary Care Provider Unavailabl e Jose Juarez MD Primary Care Provider Jerilyn Cervantes MD Primary Care Provider + Jose Juarez MD Unavailable [phone] Jose Juarez MD Unavailable [phone] Reason for Visit * Reason Comments Medication Refill Encounter Details Date Type Department Care Team (Late st Contact Info) Description 05/22/[address] [address] Aviva Duggan MD [facility] [place] [address] Medication Refill Social History Tobacco [...] encounter Miscellaneous Notes * Telephone Encounter - Diane Ugalde - 06/03/2014 2:09 PM CDT Called patient to informed her to start Lipitor [address] Noyola. Rx has been sent to pharmacy.TIERA Canchola documented in this encounter Plan of Treatment Not on file documented as of this encounter Visit Diagnoses Diagnosis Anxiety- Primary Anxiety state, unspecified Pure hypercholesterolemia documented in this encounter Care Teams Lathe Setup Operator Relationship Specialty Start Date End Date Aviva Duggan MD [facility] [address] [place] [address] PCP - General Family Practice 12/18/10 06/18/14 Miles Martinez MD PCP - General 06/19/14 10/20/14 Jose Juarez MD [address] [place] [phone] PCP - General Internal Medicine 10/21/14 12/07/16 Jerilyn Cervantes MD [facility] & [address] [address] PCP - General Family Practice 12/08/16 Jose Juarez MD [address] [place] [phone] PCP - Assigned PCP 06/02/14 12/12/18 Jose Juarez MD [address] [place] [phone] Assigned PCP 09/01/14 01/20/19 documented as of this encounter
--- OUTSIDE RECORDS SUMMARY | 2023-11-22 16:03 | XMS_ITS | Encounter Summary ---
Author Name Unknown Organization [place] Address [address] [place] [address] Care Team Providers Care Vamp Strap Ironer Name Role Phone Jose Juarez MD Primary Care Provider Jerilyn Cervantes MD Primary Care Provider + Jose Juarez MD Unavailable [phone] Jose Juarez MD Unavailable [phone] Reason for Visit * Reason Comments Medication Refill Encounter Details Date Type Department Care Team (Late st Contact Info) Description 11/26/2014 Refill [facility] [address] [place] [address] Aviva Duggan MD [facility] [place], [place] [id number] Medication Refill Social History Tobacco Use Types [...] as of this encounter Visit Diagnoses Diagnosis Medication refill- Primary Issue of repeat prescriptions documented in this encounter Care Teams Vamp Strap Ironer Relationship Specialty Start Date End Date Jose Juarez MD [address] [place] [phone] PCP - General Internal Medicine 10/21/14 12/07/16 Jerilyn Cervantes MD [address] [address] PCP - General Family Practice 12/08/16 Jose Juarez MD [address] [place] [phone] PCP - Assigned PCP 06/02/14 12/12/18 Jose Juarez MD [address] [place] [phone] Assigned PCP 09/01/14 01/20/19 documented as of this encounter
--- OUTSIDE RECORDS SUMMARY | 2023-11-22 16:03 | XMS_ITS | Referral Summary ---
Author Name Unknown Organization [facility] Address [address] [place] [address] Care Team Providers Care Glaciologist Name Role Phone Jerilyn Cervantes MD Primary Care Provider + Allergies Active Allergy Reactions Criticality Noted Date Comments Quinolones Itching 01/14/2011 Influenza Virus Vaccine Other (See Comments) 01/14/2011 Hospitalized as child Medications Medication Sig Dispensed Refills Start Date End Date Status Calcium Carbonate-Vitamin D (CALCIUM 600 + D OR) Take 2 tablets by mouth daily. 0 Active [place]-3 Fatty Acids (FISH OIL PO) Take 1 [...] goal <130 07/30/2014 Vertebral fracture 10/28/2013 Health Assisted 04/26/2013 Overview: State Tier Level: Tier 2 [...] Vaccine (Adacel) 03/24/2012 Zoster vaccine, live 03/14/2008 Social History Tobacco Use Types Packs/Day Years [...] (138 lb 6.4 oz) 12/08/2016 3:30 PM IT INTEGRATION ARCHITECT Height 157.5 cm (5' 2) 12/08/2016 3:30 PM IT INTEGRATION ARCHITECT Body Mass Index 25.31 12/08/2016 3:30 PM IT INTEGRATION ARCHITECT Plan of Treatment Not on file Advance Directives For more information, please contact: [phone] Latest Code Status on File Code Status Date Activated Date Inactivated Comments Full Code 11/01/2013 1:52 PM 12/31/2018 5:26 PM Code Status History Code Status Date Activated Date Inactivated Comments Full Code 10/28/2013 5:55 PM 11/01/2013 1:52 PM Care Teams Glaciologist Relationship Specialty Start Date End Date Jerilyn Cervantes MD [facility] [address] [place] [address] PCP - General Family Practice 12/08/16
--- OUTSIDE RECORDS SUMMARY | 2023-11-22 16:03 | XMS_ITS | Encounter Summary ---
Author Name Unknown Organization [facility] Address [address] [place] [address] Care Team Providers Care Animal Daycare Provider Name Role Phone Aviva Duggan MD Primary Care Prov ider Miles Martinez MD Primary Care Provider Unavailabl e Jose Juarez MD Primary Care Provider Jerilyn Cervantes MD Primary Care Provider + Jose Juarez MD Unavailable [phone] Jose Juarez MD Unavailable [phone] Reason for Visit * Reason Comments Medication Refill Encounter Details Date Type Department Care Team (Late st Contact Info) Description 02/14/[address] [address] Aviva Duggan MD [facility] [place] [address] Medication Refill Social History Tobacco [...] unspecified documented in this encounter Care Teams Animal Daycare Provider Relationship Specialty Start Date End Date Aviva Duggan MD [facility] [address] [facility] [place] [address] PCP - General Family Practice 12/18/10 06/18/14 Miles Martinez MD PCP - General 06/19/14 10/20/14 Jose Juarez MD [address] [place] [phone] PCP - General Internal Medicine 10/21/14 12/07/16 Jerilyn Cervantes MD [facility] & [address] [address] PCP - General Family Practice 12/08/16 Jose Juarez MD [address] [place] [phone] PCP - Assigned PCP 06/02/14 12/12/18 Jose Juarez MD [address] [place] [phone] Assigned PCP 09/01/14 01/20/19 documented as of this encounter
--- OUTSIDE RECORDS SUMMARY | 2023-11-22 16:04 | XMS_ITS | Encounter Summary ---
Author Name Unknown Organization [place] Address [address] [place] [address] Care Team Providers Care Health Professional Name Role Phone Aviva Duggan MD Primary Care Prov ider Miles Martinez MD Primary Care Provider Unavailabl e Jose Juarez MD Primary Care Provider Jerilyn Cervantes MD Primary Care Provider + Jose Juarez MD Unavailable [phone] Jose Juarez MD Unavailable [phone] Reason for Visit * Reason Comments Refill Request Encounter Details Date Type Department Care Team (Late st Contact Info) Description 06/22/[address] [address] Aviva Duggan MD [facility] [place] [address] Refill Request Social History Tobacco [...] unspecified documented in this encounter Care Teams Health Professional Relationship Specialty Start Date End Date Aviva Duggan MD [facility] [address] [facility] [address] PCP - General Family Practice 12/18/10 06/18/14 Miles Martinez MD PCP - General 06/19/14 10/20/14 Jose Juarez MD [address] [place] [phone] PCP - General Internal Medicine 10/21/14 12/07/16 Jerilyn Cervantes MD [facility] & [address] [address] PCP - General Family Practice 12/08/16 Jose Juarez MD [address] [place] [phone] PCP - Assigned PCP 06/02/14 12/12/18 Jose Juarez MD [address] [place] [phone] Assigned PCP 09/01/14 01/20/19 documented as of this encounter
--- OUTSIDE RECORDS SUMMARY | 2023-11-22 16:04 | XMS_ITS | Encounter Summary ---
Author Name Unknown Organization [facility] Address [address] [facility] [place] [address] Care Team Providers Care Steel Erector Name Role Phone Aviva Duggan MD Primary Care Prov ider Miles Martinez MD Primary Care Provider Unavailabl e Jose Juarez MD Primary Care Provider Jerilyn Cervantes MD Primary Care Provider + Jose Juarez MD Unavailable [phone] Jose Juarez MD Unavailable [phone] Encounter Details Date Type Department Care Team (Late st Contact Info) Description 08/03/2011 Office Visit-[facility] [place] [id number] [facility] [address] [place] [address] Mendez Jimenez MD XXX XXX [address] [facility] [address] [place], [place] [address] Social History Tobacco Use Types Packs/Day Years [...] as of this encounter Progress Notes * Mendez Jimenez MD - 08/13/2011 1:40 PM CDT Progress Note Created by: Mendez Jimenez M.D. DATE: 08/03/2011 PRASANTH DELCID DATE OF : 1945 AGE: [age] years old Referring Physician: AVIVA GUZMAN Referring Clinic: [facility] CURRENT DIAGNOSES 1. - Bradycardia, 427.89 ALLERGIES Ciprofloxacin MEDICATIONS (prior to changes made today) 1. calcium carbonate-vit D3-min 600 mg calcium- 200 unit Tablet, 1 p.o. daily 2. Daily Multi-Vitamin Tablet, 1 p.o. daily 3. Fish Oil 1,000 mg Capsule, 1 p.o. daily 4. Fosamax 70 mg Tablet, 1 p.o weekly 5. Glucosamine Complex-MSM Capsule, 1 p.o. daily 6. naproxen sodium 220 mg Tablet, Take as Directed 7. Vitamin D 2,000 unit Capsule, 1 p.o. daily CHIEF COMPLAINTS low heart rate HISTORY OF PRESENT ILLNESS Thank you for asking me to see Prasanth Delcid in consultation because of bradycardia. As you probably remember, the patient is a 65-year-old female who states that she was seen at your office because of complaints about a headache. She apparently develops headache in the middle of thenight that keeps her awake. 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 She is concerned about the headaches causing her not to get enough sleep, which would increase her risk of making an error at work. At the time of her visit with you she apparently mentioned some episodes of dizzy spells. She had an electrocardiogram done on July 27 presumably at the time of her visit. This showed a sinus bradycardia at 50 beats per minute. Otherwise the EKG was unremarkable. There were no pathological Q waves. The ST segments were isoelectric. The T waves were upright. She did complain of some occasional dizzy spells and I was asked to see the patient because of bradycardia. The patient denies any chest pain, chest pressure or chest heaviness. She is very nondescript abouther dizzy spells. She believes the last one happened two weeks ago. They only last for a minute or so. She has never had syncope or near- syncope. She never feels like she is going to pass out. She denies any palpitations when this occurs. There has been no orthopnea, PND. She has had no chest pain.The patient believes her last episode was two weeks ago. She cannot tell me the occurrence of the episode prior to that. She is very nondescript about the frequency of these spells. To me she states that her main complaint is her headaches and she is afraid of a possible tumor or stroke. Physical exam is as listed below. In particular there was no orthostatic drop in her blood pressure. Her lungs were clear to auscultation. Heart exam revealed a regular rate and rhythm without pathological murmur, S3, gallop. There was no life or thrill. 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 EYES no blurred vision, eye pain, or discharge. EARS, NOSE, THROAT, MOUTH denies any hearing loss, epistaxis, hoarseness or difficulty speaking. RESPIRATORY denies dyspnea, snoring, cough, wheezing or hemoptysis. CARDIOVASCULAR some palpitations, dizziness, denies chest pains and discomfort, denies edema ABDOMINAL heartburn GENITOURINARY-FEMALE nocturia, x1 MUSCULOSKELETAL history of generalized arthritis NEUROLOGICAL tension headaches PSYCHIATRIC anxiety, stress, sleep disturbance ENDOCRINE denies any history of thyroid disease or diabetes mellitus. HEMATOLOGICAL/IMMUNOLOGIC denies any food allergies, seasonal allergies, bleeding disorders or lymphadenopathy. PHYSICAL EXAMINATION VITAL SIGNS: Blood Pressure: 136/76Sitting, Left arm, regular cuff Pulse- 60.00/min. Weight- 124.00 lbs. Height- 61.00 CONSTITUTIONAL NAD, alert and oriented, ambulating halls [...] NEUROLOGICAL motor grossly symmetrical MEDICATIONS UPDATED/STARTED TODAY: calcium carbonate-vit D3-min 600 mg calcium- 200 unit Tablet, 1 p.o. daily, #0 (Zero) Daily Multi-Vitamin Tablet, 1 p.o. daily, #0 (Zero) Fish Oil 1,000 mg Capsule, 1 p.o. daily, #0 (Zero) Fosamax 70 mg Tablet, 1 p.o weekly, #0 (Zero) Glucosamine Complex-MSM Capsule, 1 p.o. daily, #0 (Zero) naproxen sodium 220 mg Tablet, Take as Directed, #0 (Zero) Vitamin D 2,000 unit Capsule, 1 p.o. daily, #0 (Zero) MEDICATIONS REFILLED/STOPPED TODAY: Celexa 10 mg Tablet 1 p.o. daily #0 (Zero) Physician Order and Xanax 0.5 mg Tablet Take as Directed#0 (Zero) Physician Order ASSESSMENT AND RECOMMENDATIONS: 1. Patient's main complaint to me is her headache, which I doubt is due to a cardiac etiology. I will leave this for you to address. 2. Consultation was specifically requested because of bradycardia.Indeed her heart rate on the electrocardiogram was in the 50s and supposedly the blood pressure was90/64. On review of the records from your office, the patient had a heart rate of 52 with a blood pressure of 130/72 during her office visit in January 2011. By these records it sounds like the bradycardia has been longstanding although because of the just two points in time I cannot tell if it is intermittent. 3. Her symptoms do not sound like they are related to a significant cardiac abnormality.Her heart rate in office today is 60. A heart rate in the 50s would unlikely cause symptoms. I would like to get an event recorder to make sure there is no significant sinus bradycardia or pauses. 4.I explained to the patient that at this point I do not see any need for a pacemaker. Certainly if the event recorder shows significant abnormality a pacemaker could be considered. 5. I would advise obtaining thyroid function tests to make sure that hypothyroidism is not a cause of her bradycardia. I will leave this for you to check your records. 6. Patient is not on any chronotropic inhibitory drugs like calcium channel blockers or beta-blockers that could be contributing to her bradycardia. 7.Assuming the event recorder is unremarkable, then I would feel that no further cardiac work-up would be needed for the bradycardia unless she became symptomatic. As mentioned above, I will leave the elevation of her headache to you. I will schedule the patient to see me back in approximately one month's time. Thank you very much for allowing us to participate in the care of your patient. Should you have anyquestions about this patient or any other patient, feel free to contact us at any time. Mendez Jimenez M.D. documented in this encounter Plan of Treatment Not on file documented as of this encounter Visit Diagnoses Not on filedocumented in this encounter Care Teams Steel Erector Relationship Specialty Start Date End Date Aviva Duggan MD [facility] [address] [place] [address] PCP - General Family Practice 12/18/10 06/18/14 Miles Martinez MD PCP - General 06/19/14 10/20/14 Jose Juarez MD [address] [place] [phone] PCP - General Internal Medicine 10/21/14 12/07/[address] [facility] & [address] [address] PCP - General Family Practice 12/08/16 Jose Juarez MD [address] [place] [phone] PCP - Assigned PCP 06/02/14 12/12/18 Jose Juarez MD [address] [place] [phone] Assigned PCP 09/01/14 01/20/19 documented as of this encounter
--- OUTSIDE RECORDS SUMMARY | 2023-11-22 16:04 | XMS_ITS | Encounter Summary ---
Author Name Unknown Organization [place] Address [address] [facility] [place] [address] Care Team Providers Care Steel Shot Header Operator Name Role Phone Aviva Duggan MD Primary Care Prov ider Miles Martinez MD Primary Care Provider Unavailabl e Jose Juarez MD Primary Care Provider [phone] Jerilyn Cervantes MD Primary Care Provider + Jose Juarez MD Unavailable [phone] Jose Juarez MD Unavailable [phone] Encounter Details Date Type Department Care Team (Late st Contact Info) Description 09/07/2011 Office Visit-[facility] [id number] [place] [phone] Alvina Case, MULTIPLE CUT OFF SAW OPERATOR DIGITAL PRESS OPERATOR Social History Tobacco Use Types Packs/Day Years [...] as of this encounter Progress Notes * Alvina Case, EXTRACT OPERATOR - 09/10/2011 11:24 AM CST Progress Note Created by: Alvina Case N.P. [id number] DATE: 09/07/2011 PRASANTH DELCID DATE OF : 1945 AGE: [age] years old Referring Physician: AVIVA GUZMAN Referring Clinic: [facility] CURRENT DIAGNOSES 1. - Bradycardia, 427.89 ALLERGIES Ciprofloxacin MEDICATIONS (prior to changes made today) 1. alprazolam 0.5 mg Tablet, Take as Directed 2. calcium carbonate-vit D3-min 600 mg calcium- 200 unit Tablet, 1 p.o. daily 3. Daily Multi-Vitamin Tablet, 1 p.o. daily 4. Fish Oil 1,000 mg Capsule, 1 p.o. daily 5. Fosamax 70 mg Tablet, 1 p.o weekly 6. Glucosamine Complex-MSM Capsule, 1 p.o. daily 7. naproxen sodium 220 mg Tablet, Take as Directed 8. Vitamin D 2,000 unit Capsule, 1 p.o. daily CHIEF COMPLAINTS HISTORY OF PRESENT ILLNESS Prasanth is a pleasant 66-year-old woman who is here today to review the findings of an event recorder that was placed for further evaluation of her heart rhythm. This 66-year-old woman was referred to Dr. Mendez Jimenez from her primary physician for concerns of a slow heart rate. It appears that Prasanth's resting heart rate is about 50. She is asymptomatic with this but at times she did say she felt dizzy. To further delineate this, Dr. Jimenez placed an event monitor. Today I reviewed the results. It appears that during the waking hours indeed she has a sinus bradycardia in the 50s sometimes 48 but she is asymptomatic with this. Interestingly at night she has sinus tachycardia she has PACs and there was one transmission that read Aflutter/Afib but it appears that perhaps one of her leads became loose. She did report symptoms during the night of dizzy, light- headed, and waking up. In further review with Prasanth, she admits to being a poor sleeper. She generally takes Xanax at night to help her sleep but while she wore the Holter monitor she did not use the Xanax. She does have nightmares. In assessing for sleep apnea, she does not believe she snores. She does wake-up feeling well rested and she reports a good energy level during the day. Her older sonis with her today who does report a personal history of sleep apnea and he does not believe his momsnores or has it. In review, Prasanth denies any syncopal or near-syncopal activities. She reports she is an anxious person, she worries and her anxiety does keep her up at night and interferes with her sleep pattern. Physical exam shows a patient who is alert and oriented. Skin warm and dry. Blood pressure today iselevated at 170/82 on recheck she is 160/70. Her weight is 124. Her pulse is 60 beats per minute. Heart tones are regular with an S1, S2. Lungs are clear without crackles or wheezes. Abdomen is soft.Lower extremities are free of edema. 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 EYES no blurred vision, eye pain, or discharge. EARS, NOSE, THROAT, MOUTH denies any hearing loss, epistaxis, hoarseness or difficulty speaking. RESPIRATORY denies dyspnea, snoring, cough, wheezing or hemoptysis. CARDIOVASCULAR some dizziness, denies chest pains and discomfort, denies edema ABDOMINAL heartburn GENITOURINARY-FEMALE nocturia, x1 MUSCULOSKELETAL history of generalized arthritis NEUROLOGICAL tension headaches, same PSYCHIATRIC anxiety, stress, sleep disturbance ENDOCRINE denies any history of thyroid disease or diabetes mellitus. HEMATOLOGICAL/IMMUNOLOGIC denies any food allergies, seasonal allergies, bleeding disorders or lymphadenopathy. PHYSICAL EXAMINATION VITAL SIGNS: Blood Pressure: 170/82Sitting, Right arm, regular cuff Pulse- 60.00/min. Weight- 124.00 [...] symmetrical MEDICATIONS UPDATED/STARTED TODAY: alprazolam 0.5 mg Tablet, Take as Directed, #0 (Zero) IMPRESSIONS/PLAN 1.Sinus bradycardia with an occasional sinus tachycardia during the sleeping hours with PACs. The patient is generally asymptomatic with her heart rhythm. She does admit to anxiety and the need for asleep aid. During the time she worse the monitor she did not take her Xanax. She reported nightmares and unrestful sleep. 2.Elevated blood pressure. Her blood pressure is elevated today. She checks her blood pressure at [employer] where she works. She said generally her systolic numbers are in the 120s. Today I had given her a blood pressure chart [facility] primary care physician in follow-up. If indeed she does need antihy pertensive medications in the future, a non-chronotropic inhibitor drug should be avoided because her of her resting bradycardia. We will see Prasanth just on a PRN basis in the future. Thank you for allowing us to be part of this delightful patient's care. Alvina Case N.P. documented in this encounter Plan of Treatment Not on file documented as of this encounter Visit Diagnoses Not on filedocumented in this encounter Care Teams Steel Shot Header Operator Relationship Specialty Start Date End Date Aviva Duggan MD [facility] [address] [place] [address] PCP - General Family Practice 12/18/10 06/18/14 Miles Martinez MD PCP - General 06/19/14 10/20/14 Jose Juarez MD [address] [phone] PCP - General Internal Medicine 10/21/14 12/07/16 Jerilyn Cervantes MD [facility] & [address] [address] PCP - General Family Practice 12/08/16 Jose Juarez MD [address] [place] [phone] PCP - Assigned PCP 06/02/14 12/12/18 Jose Juarez MD [address] [place] [phone] Assigned PCP 09/01/14 01/20/19 documented as of this encounter
--- OUTSIDE RECORDS SUMMARY | 2023-11-22 16:04 | XMS_ITS | Encounter Summary ---
Author Name Unknown Organization [place] Address [address] [place] [address] Care Team Providers Care Parts Sales Counterperson Name Role Phone Aviva Duggan MD Primary Care Prov ider Miles Martinez MD Primary Care Provider Unavailabl e Jose Juarez MD Primary Care Provider Jerilyn Cervantes MD Primary Care Provider + Jose Juarez MD Unavailable [phone] Jose Juarez MD Unavailable [phone] Encounter Details Date Type Department Care Team (Late st Contact Info) Description 12/07/2012 Office Visit-[facility] [address] [place] [address] Raza Tomlin MD [address] [facility] [address] [place] [address] Social History Tobacco Use Types Packs/Day [...] Progress Notes * Raza Tomlin MD - 12/08/2012 3:19 PM CST Progress Note Created by: Raza Tomlin M.D. DATE: 12/07/2012 PRASANTH DELCID DATE OF : 1945 AGE: [age] years old Referring Physician: AVIVA GUZMAN Referring Clinic: [facility] CURRENT DIAGNOSES 1. - Bradycardia, 427.89 [...] mg tablet, 1 p.o. daily CHIEF COMPLAINTS Cardiac Assessment and Palpitations HISTORY OF PRESENT ILLNESS I had the pleasure and opportunity of seeing your patient, Ms. Delcid, in consultation today in cardiology clinic on 12/07/12. Mr. Delcid is a delightful 67-year-old female [place] immigrantwho has been to urgent care and the emergency room a couple of times for irregular fast heart rate and palpitations. Recently on November 23 she represented to the ED in atrial fibrillation with rapid ventricular response. She apparently states she has had intermittent episodes of this similar toin the past but has ignored them. Now of late they occur to be bothering her and waking her up fromsleep time. She also has been having headache. She was started on lisinopril and low dose metoprolol for control of her hypertension. Certainly her metoprolol was increased to 25 mg daily. In the past she saw Dr. Jimenez for episodes of bradycardia interestingly. Holter monitor showed some asymptomatic sinus bradycardia and no other dysrhythmias. Ms. Delcid denies any chest pain, chest pressure, shortness of breath, syncope, near-syncope or edema. She has had no history of myocardial infarction, stroke, bleeding disorder. They did check a CBC and troponin at the hospital, which are negative as well as a chest x-ray. She comes in today being concerned about this because she does have a plan for a trip to go back to [place] February 22 of this year. PAST HISTORY Past Medical Illnesses: osteoarthritis, used to smoke but quit, hyperlipidemia, hypertension, anxiety, osteoporosis Past Cardiac Illnesses: bradycardia, palpitations, atrial fibrillation Cardiology Procedures-NonInvasive: event monitor Aug 2011 Vascular Procedures-Noninvasive: GILBERT-Resting 2009 LVEF not documented FAMILY HISTORY: Father - GI bleed; Mother - Age 92, pneumonia; SOCIAL HISTORY Alcohol Use - denies drinking; Smoking - qiuit smoking, 01/14/81; Diet - regular diet without modifications and caffeine use-none; Lifestyle - , children and drives car; Exercise - active at work and walking; 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 EYES vision changes EARS, NOSE, THROAT, MOUTH denies any hearing loss, epistaxis, hoarseness or difficulty speaking. RESPIRATORY denies dyspnea, snoring, cough, wheezing or hemoptysis. 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 HEMATOLOGICAL/IMMUNOLOGIC medication allergies PHYSICAL EXAMINATION VITAL SIGNS: Blood Pressure: 144/84Sitting, Left arm, regular cuff Pulse- 60.00/min. Weight- 119.60 lbs. Height- 61 BMI Measurement: 22 CONSTITUTIONAL [...] NEUROLOGICAL motor grossly symmetrical MEDICATIONS UPDATED/STARTED TODAY: Acetaminophen Extra Strength 500 mg tablet, 1 p.o. PRN as Directed, #0 (Zero) Aspirin Low Dose 81 mg tablet,delayed release (DR/EC), 1 p.o. daily, #0 (Zero) lisinopril 10 mg tablet, 1 p.o. daily, #30(Thirty) metoprolol succinate 25 mg tablet extended release 24 hr, 1 p.o. daily, #0 (Zero) sertraline 25 mg tablet, 1 p.o. daily HS, #0 (Zero) Xarelto 20 mg tablet, 1 p.o. daily, #30 (Thirty) MEDICATIONS REFILLED/STOPPED TODAY: Fosamax 70 mg Tablet 1 p.o weekly #0 (Zero) Patient Terminated, Glucosamine Complex-MSM Capsule 1 p.o. daily #0 (Zero) Patient Terminated and lisinopril 5 mg tablet 1 p.o. daily #0 (Zero) Refill IMPRESSIONS/PLAN Greater than 50% of this visit is spent in counseling. She does certainly have probably evidence ofsick sinus syndrome with a previous history of sinus bradycardia and now with atrial fibrillation. Her other risk factor being hypertension. She is a CHADS-VASc score of 3 and therefore oral anticoagulation would be recommended unless she had a contraindicating. I have started her on Xarelto 20 mg daily as she has normal creatinine clearance. She will follow back up with us in 1-2 weeks time to see how she is tolerating her medications. Her blood pressure is still not controlled so I have recommended increasing lisinopril from 5 to 10 mg daily and further titration of addition of HCTZ as necessary for blood pressure control. I would also like to screen for other potential secondary etiologies such as hyperthyroidism and sleep apnea. However I think these are unlikely. We will continue her on her beta-blockers. If she continues to have breakthrough symptomatic bouts of atrial fibrillation we would consider sending her for referral to EP for possible ablation. She was a former smoker but quit in 1980. She does not drink alcohol. She has not used any caffeine, caffeinated products since her emergency room visit. I would also like to get a baseline echocardiogram and again outline has been explained and treatment to her as well. Thank you for this referral. Solomon do not hesitate to call me with any questions or concerns. TODAYS ORDERS 1. 12 Lead EKG Today 2. Sleep Study Schedule At [facility] 3. 2D, color flow, doppler 1 week 4. F/U with Janene Mcgill, P.A. 7-14 days 5. BMP Today 6. TSH Today Raza Tomlin M.D. documented in this encounter Plan of Treatment Not on file documented as of this encounter Visit Diagnoses Not on filedocumented in this encounter Care Teams Parts Sales Counterperson Relationship Specialty Start Date End Date Aviva Duggan MD [facility] [address] [place] [address] PCP - General Family Practice 12/18/10 06/18/14 Miles Martinez MD PCP - General 06/19/14 10/20/14 Jose Juarez MD [address] [place] [phone] PCP - General Internal Medicine 10/21/14 12/07/16 Jerilyn Cervantes MD [facility] & [address] [address] PCP - General Family Practice 12/08/16 Jose Juarez MD [address] [place] [phone] PCP - Assigned PCP 06/02/14 12/12/18 Jose Juarez MD [address] [place] [phone] Assigned PCP 09/01/14 01/20/19 documented as of this encounter
== END 2023-11-22 07:31 | disposition home or self-care (01) ==
LOC: NFLDREF 16:00
PROVIDERS: PCP Family Medicine; Referring Provider Family Medicine; Visit Provider Family Medicine
DX: Z01.419 Encounter for gynecological examination (general) (routine) without abnormal findings (principal); I10 Essential (primary) hypertension; R79.89 Other specified abnormal findings of blood chemistry; E78.5 Hyperlipidemia, unspecified; E03.8 Other specified hypothyroidism; M81.0 Age-related osteoporosis without current pathological fracture; R74.01 Elevation of levels of liver transaminase levels; I48.91 Unspecified atrial fibrillation; Z87.39 Personal history of other diseases of the musculoskeletal system and connective tissue
CPT/HCPCS: 80053; 80061; 82306; 84439; 84443

== ENCOUNTER 2023-12-06 07:54 | Outpatient (CLI) | payer OTHER, SELFPAY ==
--- NOTE | 2023-12-06 09:15 | MM_ITS ---
Patient: PRASANTH DELCID Facility:?[facility] Patient ID:?[id number] Site Patient ID:?[id number]. Site :?[id number] Study:?XRay-Breast Bilateral 3D W/CAD-12/06/2023 10:34:31 AM Ordering Physician:Wes Final Report: BILATERAL SCREENING MAMMOGRAM WITH COMPUTER-AIDED DETECTION AND TOMOSYNTHESIS TECHNIQUE: CC and MLO views were obtained. These mammographic images have been obtained using full-field digital technique. These mammographic images were interpreted with the benefit of computer-aided detection. Breast Tomosynthesis was used in this interpretation. COMPARISON FILM: 12/16/22, 12/15/21, 11/10/20. FINDINGS: There are scattered areas of fibroglandular density. IMPRESSION: There is no radiographic evidence for malignancy. ASSESSMENT: BI-RADS Category 1: Negative RECOMMENDATION: Routine screening mammogram in 1 year. A lay language report of this examination will be provided to the patient. Tj Sainz M.D. Diagnostic Radiologist [email or web address] DSM/sp R& Transcribed: 3:22 p.m. SP/Dictated by: Tj Sainz MD @ 12/06/2023 11:22:00 AM Signed by:Alicia Sainz MD @12/07/2023 5:28:03 AM (Electronic Signature)
== END 2023-12-06 07:55 | disposition home or self-care (01) ==
LOC: MAMMO 07:55
PROVIDERS: PCP Family Medicine; Visit Provider Family Medicine
DX: Z12.31 Encounter for screening mammogram for malignant neoplasm of breast (principal)
CPT/HCPCS: 77063; 77067

== ENCOUNTER 2023-12-07 14:27 | Outpatient (CLI) | payer OTHER, SELFPAY ==
--- NOTE | 2023-12-07 15:00 | XR_ITS ---
Patient: PRASANTH DELCID Facility:?[facility] Patient ID:?[id number] Site Patient ID:?[id number]. Site :?[id number] Study:?DEXA-Bone Density DEXA - Spine/Hip/Forearm-12/07/2023 3:15:16 PM Ordering Physician:MIKE Final Report: DXA BONE MINERAL DENSITY STUDY Reason for exam: Osteoporosis. Current height (in): 59. Weight (lb): 148. Menopause age: 51. Ethnicity: White. 1. Have you had a previous hip or vertebral fracture? No. 2. Have you had any fractures during your adult life which did not result from significant trauma (e.g., auto accident)? No. 3. Did either of your parents have a hip fracture? No. 4. Do you smoke? No. 5. Have you ever taken Glucocorticoids? No. 6. Do you have rheumatoid arthritis? Yes. 7. Do you have secondary osteoporosis? Yes. 8. Do you drink 3 or more alcoholic drinks per day? No. 9. Are you being treated for osteoporosis? No. 10. Have you ever taken any of the following medications: Actonel, Evista, Fosamax, Miacalcin, Reclast, Boniva, Forteo, HRT (i.e., estrogen/hormone therapy), Protelos, Prolia, Vitamin D, Calcium, other ? please specify. ANSWER: Yes, Fosamax (i.e. alendronate), vitamin D, and calcium. 11. Do you have any of the following medical conditions: Anorexia or bulimia, asthma or emphysema, end stage renal disease, hyperparathyroidism, any seizure disorders, cancer, inflammatory bowel diseases, hysterectomy, other ? please specify. ANSWER: No. 12. What was your maximum height (inches)? 60. 13. Do you perform weight bearing exercise regularly? No. 14. Do you regularly consume dairy products? Yes. 15. Do you drink caffeinated beverages? Yes. If female: 16. At what age did your period start? 12. 17. Are you premenopausal? No. 18. How many full-term pregnancies have you had? 2. 19. Have you ever missed your period for more than 6 months in a row (not including or menopause)? No. TECHNIQUE: Bone mineral density study was performed using the Horizon Wi. FINDINGS: The results of the study expressed as bone mineral density (BMD) are as follows: Lumbar spine L1 to L3: BMD: 1.019 g/cm2. T-score: 0.0. Z-score: 2.6 Neck Left: BMD: 0.592 g/cm2. T-score: -2.3. Z-score: 0.0 Total Left: BMD: 0.711 g/cm2. T-score: -1.9. Z-score: 0.1 Radius Right 33%: BMD: 0.463 g/cm2. T-score: -3.8. Z-score: -0.8 IMPRESSION: Osteoporosis. *Comparison exams done prior to 03/2020 were performed on different unit, [employer]. COMPARISON: Compared with scan of 11/18/2021, the bone mineral density has increased by 13.9 percent at the spine, increased by 4.9 percent at the left hip, and increased by 0.6 percent at the right forearm. Compared with scan of 11/12/2020, the bone mineral density has decreased by 6.8 percent at the spine, decreased by 5.2 percent at the left hip, and increased by 3.7 percent at the right forearm. FRAX 10-year Fracture Risk Major Osteoporotic Fracture: 21% Hip Fracture: 7.1% Reported Risk Factors: [place] () Neck BMD=0.592, BMI=29.9, rheumatoid arthritis, secondary osteoporosis Tj Sainz M.D. Diagnostic Radiologist [email or web address] CIARRA/lavonne D& Transcribed: 3:42 p.mAmado banerjee/Dictated by: Tj Sainz MD @ 12/08/2023 9:27:00 AM Signed by:?jT Sainz MD @12/08/2023 4:05:35 PM (Electronic Signature)
== END 2023-12-07 14:28 | disposition home or self-care (01) ==
PROVIDERS: PCP Family Medicine; Visit Provider Family Medicine
DX: M81.0 Age-related osteoporosis without current pathological fracture (principal)
CPT/HCPCS: 77080

== ENCOUNTER 2024-02-21 07:20 | Outpatient (CLI) | payer OTHER, SELFPAY ==
--- OUTSIDE RECORDS SUMMARY | 2024-02-23 09:18 | XMS_ITS | Clinical Summary ---
Author Name Unknown Organization [facility] Address [place], [place] [address] Care Team Providers Care Van Owner Operator Name Role Phone Jerilyn Cervantes MD Primary [...] follow up in December 2023. Please call [phone] to schedule. 180 Tablet 09/27/2023 Active amLODIPine (NORVASC) 2.5 mg tabletIndications:H ypertension Take 1 Tablet (2.5 mg) by mouth once daily. 90 Tablet 3 12/09/2023 Active Active Problems Problem Noted Date Diagnosed Date ACP (advance care planning) 12/21/2011 Overview: Patient has identified Health Care Agent(s): Yes Add Health Care Agents: Yes Health Care Agent(s): Primary Health Care Agent: Jose Rangel Relationship: Son Secondary Health Care Agent: Alejo Juan Carlos Relationship: Son Conservator: Relationship: Phone: Guardian: Relationship: [...] . Dizziness has since resolved. Saw a international student counselor from [place](Dr Mendez Jimenez) who recommended no further interventions. [...] Encounters Date Type Department Care Team Description 12/09/2023 2:00 PM ACID BLOWER Office Visit [facility] & [place] [id number] David Meadows MD from Last 3 Months Family History Medical [...] Comments Blood Pressure 142/80 11/07/2020 9:10 AM ACID BLOWER Pulse 55 11/07/2020 9:10 AM ACID BLOWER Temperature 36.7 ??C (98.1 ??F) 12/23/2011 8:05 AM CD T Respiratory Rate 16 11/07/2020 9:10 AM ACID BLOWER Oxygen Saturation 100% 12/23/2011 8:05 AM CDT Inhaled Oxygen Concentration - - Weight 67.6 kg (149 lb) 11/07/2020 9:10 AM ACID BLOWER Height 156.2 cm (5' 1.5) 03/15/2012 3:28 [...] 65+ (1 of 1 - PCV) 2009 Influenza for age 65+ 06/10/2024 COVID-19 vaccine series Completed 11/24/19 24, 07/08/2022, 08/27/2021, Additional history exists Medical Devices Implanted Type Area Concrete Inspector Device Identifier Shelf Expiration Date Model / Serial / Lot Baseplate Tib Sz 4 Rt Andreina Ii - [id number] Implanted:Qty: 1 on 12/20/2011 at [facility] Ortho Total Joint Right: Knee [employer] [id number]# / / [id number] Cmnt Bone Surg Simplex - [id number] Implanted:Qty: 1 on 12/20/2011 at [facility] Right: Knee [employer] 6191-1-010# / / [id number] Cmnt 1/2 Dosehowmedica - [id number] Implanted:Qty: 1 on 12/20/2011 at [facility] Right: Knee [employer] 6188-1-010# / / [id number] Compnt Fem P.S. Rt Sz [id number] - [id number] Implanted:Qty: 1 on 12/20/2011 at [facility] Right: Knee [employer] 714-# / / [id number] Insert Legion Sz3-4 9mm Ps High Flex Xlpe - [id number] Implanted:Qty: 1 on 12/20/2011 at [facility] Right: Knee [employer] [id number]# / / [id number] Patellar Component Implanted:Qty: 1 on 12/20/2011 at [facility] Right: Knee [id number] / / [id number] Description:PATELLAR COMPONE NT Advance Directives * Full Code (Latest Code Status on File) Date Activated Date Inactivated Comments 12/20/2011 1:06 PM 12/23/2011 5:33 PM * Full Code Date Activated Date Inactivated Comments 12/20/2011 5:13 AM 12/20/2011 1:06 PM Care Teams Van Owner Operator Relationship Specialty Start Date End Date Jerilyn Cervantes MD [address] [place] [id number] PCP - General Family Practice 04/19/18
--- OUTSIDE RECORDS SUMMARY | 2024-02-23 09:19 | XMS_ITS | Encounter Summary ---
Author Name Unknown Organization [place] Address [address] [facility] [place] [address] Care Team Providers Care Director Furniture Name Role Phone Aviva Duggan MD Primary Care Prov ider Miles Martinez MD Primary Care Provider Unavailabl e Jose Juarez MD Primary Care Provider [phone] Jerilyn Cervantes MD Primary Care Provider + Jose Juarez MD Unavailable [phone] Jose Juarez MD Unavailable [phone] Encounter Details Date Type Department Care Team (Late st Contact Info) Description 05/08/2013 [facility] [address] [place] [phone] Zeferino Hill MD [address] [facility] [address] [place], [place] [id number] Social History Tobacco Use Types Packs/Day Years Used Date Smoking Tobacco: Former Cigarettes 0.2 5 0 01/15/1976 - 01/14/1981 Smokeless Tobacco: Never Alcohol Use Standard [...] Progress Note Created by: Zeferino Hill M.D. [id number] DATE: 05/08/2013 PRASANTH DELCID DATE OF : 1945 AGE: [age] years old Referring Physician: AVIVA SILVESTRE Referring Clinic: [facility] CURRENT DIAGNOSES 1. - Atrial Fibrillation, 427.31 [...] know, Prasanth is a 67-year-old female of [place] descent, very friendly but easily excitable, with [...] on filedocumented in this encounter Care Teams Director Furniture Relationship Specialty Start Date End Date Aviva Duggan MD [facility] [address] [place] [address] PCP - General Family Practice 12/18/10 06/18/14 Miles Martinez MD PCP - General 06/19/14 10/20/14 Jose Juarez MD [address] [place] [phone] PCP - General Internal Medicine 10/21/14 12/07/16 Jerilyn Cervantes MD [facility] & [address] [address] PCP - General Family Practice 12/08/16 Jose Juarez MD [address] [place] [phone] PCP - Assigned PCP 06/02/14 12/12/18 Jose Juarez MD [address] [place] [phone] Assigned PCP 09/01/14 01/20/19 documented as of this encounter
--- OUTSIDE RECORDS SUMMARY | 2024-02-23 09:19 | XMS_ITS | Encounter Summary ---
Author Name Unknown Organization [place] Address [address] [place] [address] Care Team Providers Care Tool Grinder Operator External Name Role Phone Aviva Duggan MD Primary Care Prov ider Miles Martinez MD Primary Care Provider Unavailabl e Jose Juarez MD Primary Care Provider Jerilyn Cervantes MD Primary Care Provider + Jose Juarez MD Unavailable [phone] Jose Juarez MD Unavailable [phone] Reason for Visit * Reason Comments Refill Request Encounter Details Date Type Department Care Team (Late st Contact Info) Description 06/22/2012 Refill [facility] [address] [place] [phone] Aviva Duggan MD [facility] [place] [address] Refill Request Social History Tobacco [...] unspecified documented in this encounter Care Teams Tool Grinder Operator External Relationship Specialty Start Date End Date Aviva Duggan MD [facility] [address] [place] [address] PCP - General Family Practice 12/18/10 06/18/14 Miles Martinez MD PCP - General 06/19/14 10/20/14 Jose Juarez MD [address] [place] [phone] PCP - General Internal Medicine 10/21/14 12/07/16 Jerilyn Cervantes MD [facility] & [address] [address] PCP - General Family Practice 12/08/16 Jose Juarez MD [address] [place] [phone] PCP - Assigned PCP 06/02/14 12/12/18 Jose Juarez MD [address] [place] [phone] Assigned PCP 09/01/14 01/20/19 documented as of this encounter
--- OUTSIDE RECORDS SUMMARY | 2024-02-23 09:19 | XMS_ITS | Encounter Summary ---
Author Name Unknown Organization [place] Address [address] [place] [address] Care Team Providers Care Cleaning Attendant Name Role Phone Jose Juarez MD Primary Care Provider Jerilyn Cervantes MD Primary Care Provider + Jose Juarez MD Unavailable [phone] Jose Juarez MD Unavailable [phone] Reason for Visit * Reason Comments Medication Refill Encounter Details Date Type Department Care Team (Late st Contact Info) Description 11/26/2014 Refill [facility] [address] [place] [phone] Aviva Duggan MD [facility] [place], [place] [phone] Medication Refill Social History Tobacco Use Types [...] prescriptions documented in this encounter Care Teams Cleaning Attendant Relationship Specialty Start Date End Date Jose Juarez MD [address] [place] [phone] PCP - General Internal Medicine 10/21/14 12/07/16 Jerilyn Cervantes MD [address] [address] PCP - General Family Practice 12/08/16 Jose Juarez MD [address] [place] [phone] PCP - Assigned PCP 06/02/14 12/12/18 Jose Juarez MD [address] [place] [phone] Assigned PCP 09/01/14 01/20/19 documented as of this encounter
--- OUTSIDE RECORDS SUMMARY | 2024-02-23 09:19 | XMS_ITS | Encounter Summary ---
Author Name Unknown Organization [place] Address [address] [place] [address] Care Team Providers Care Can Cleaner Name Role Phone Aviva Duggan MD Primary Care Prov ider Miles Martinez MD Primary Care Provider Unavailabl e Jose Juarez MD Primary Care Provider Jerilyn Cervantes MD Primary Care Provider + Jose Juarez MD Unavailable [phone] Jose Juarez MD Unavailable [phone] Reason for Visit * Reason Comments Refill Request Encounter Details Date Type Department Care Team (Late st Contact Info) Description 04/13/[address] [address] [facility] [place] [address] Refill Request Social History Tobacco [...] classified documented in this encounter Care Teams Can Cleaner Relationship Specialty Start Date End Date Aviva Duggan MD [facility] [address] [place] [address] PCP - General Family Practice 12/18/10 06/18/14 Miles Martinez MD PCP - General 06/19/14 10/20/14 Jose Juarez MD [address] [place] [phone] PCP - General Internal Medicine 10/21/14 12/07/16 Jerilyn Cervantes MD [facility] & [address] [address] PCP - General Family Practice 12/08/16 Jose Juarez MD [address] [place] [phone] PCP - Assigned PCP 06/02/14 12/12/18 Jose Juarez MD [address] [place] [phone] Assigned PCP 09/01/14 01/20/19 documented as of this encounter
--- OUTSIDE RECORDS SUMMARY | 2024-02-23 09:19 | XMS_ITS | Encounter Summary ---
Author Name Unknown Organization [place] Address [address] [place] [address] Care Team Providers Care Face Painter Name Role Phone Aviva Duggan MD Primary Care Prov ider Miles Martinez MD Primary Care Provider Unavailabl e Jose Juarez MD Primary Care Provider Jerilyn Cervantes MD Primary Care Provider + Jose Juarez MD Unavailable [phone] Jose Juarez MD Unavailable [phone] Reason for Visit * Reason Comments Medication Refill Encounter Details Date Type Department Care Team (Late st Contact Info) Description 10/11/[address] [address] Aviva Duggan MD [facility] [place] [address] Medication Refill Social History Tobacco [...] unspecified documented in this encounter Care Teams Face Painter Relationship Specialty Start Date End Date Aviva Duggan MD [facility] [address] [place] [address] PCP - General Family Practice 12/18/10 06/18/14 Miles Martinez MD PCP - General 06/19/14 10/20/14 oJse Juarez MD [address] [place] [phone] PCP - General Internal Medicine 10/21/14 12/07/16 Jerilyn Cervantes MD [facility] & [address] [address] PCP - General Family Practice 12/08/16 Jose Juarez MD [address] [place] [phone] PCP - Assigned PCP 06/02/14 12/12/18 Jose Juarez MD [address] [place] [phone] Assigned PCP 09/01/14 01/20/19 documented as of this encounter
--- OUTSIDE RECORDS SUMMARY | 2024-02-23 09:19 | XMS_ITS | Referral Summary ---
Author Name Unknown Organization [place] Address [address] [place] [address] Care Team Providers Care Rate Supervisor Name Role Phone Jerilyn Cervantes MD Primary Care Provider + Allergies Active Allergy Reactions Criticality Noted Date Comments Quinolones Itching 01/14/2011 Influenza Virus Vaccine Other (See Comments) 01/14/2011 Hospitalized as child Medications Medication Sig Dispensed Refills Start Date End Date Status Calcium Carbonate-Vitamin D (CALCIUM 600 + D OR) Take 2 tablets by mouth daily. Active Jet-3 Fatty Acids (FISH OIL PO) Take 1 capsule by mouth daily. Active Acetaminophen 500 MG TBDP Take 500 mg by mouth as needed. 1-2 tablets. Active Cholecalciferol (VITAMIN D) 2000 UNIT CAPS Take 1 tablet by mouth daily. Active propafenone (RYTHMOL) 150 MG TABSIndications:Ne w [...] tablet Take 10 mg by mouth daily Active gabapentin (NEURONTIN) 300 MG capsule Take 300 mg by mouth 3 times daily Active warfarin (COUMADIN) 5 MG tabletIndications: New onset atrial fibrillation (H) Take 1/2 tablet daily except one tablet on Mon/Fri as directed by the anticoagulation clinic, needs an appt For INR prior to having refills. 20 tablet 12/14/2016 Active Active Problems Problem Noted Date Diagnosed Date Brain tumor 01/28/2016 Osteopenia 01/19/2016 Long-term (current) use of anticoagulants [Z79.0 1] 09/09/2015 Hyperlipidemia LDL goal <130 07/30/2014 Vertebral fracture 10/28/2013 Health Longterm 04/26/2013 Overview: State Tier Level: Tier 2 [...] (138 lb 6.4 oz) 12/08/2016 3:30 PM PLANT ANATOMIST Height 157.5 cm (5' 2) 12/08/2016 3:30 PM PLANT ANATOMIST Body Mass Index 25.31 12/08/2016 3:30 PM PLANT ANATOMIST Plan of Treatment Not on file Advance Directives For more information, please contact: [phone] * Full Code (Latest Code Status on File) Date Activated Date Inactivated Comments 11/01/2013 1:52 PM 12/31/2018 5:26 PM * Full Code Date Activated Date Inactivated Comments 10/28/2013 5:55 PM 11/01/2013 1:52 PM Care Teams Rate Supervisor Relationship Specialty Start Date End Date Jerilyn Cervantes MD [facility] & [address] [address] PCP - General Family Practice 12/08/16
--- OUTSIDE RECORDS SUMMARY | 2024-02-23 09:19 | XMS_ITS | Encounter Summary ---
Author Name Unknown Organization [place] Address [address] [facility] [place] [place] [address] Care Team Providers Care Validation Engineer Name Role Phone Aviva Duggan MD Primary Care Prov ider Miles Martinez MD Primary Care Provider Unavailabl e Jose Juarez MD Primary Care Provider [phone] Jerilyn Cervantes MD Primary Care Provider + Jose Juarez MD Unavailable [phone] Jose Juarez MD Unavailable [phone] Encounter Details Date Type Department Care Team (Late st Contact Info) Description 09/07/2011 Office Visit-[facility] [id number] [place] [phone] Alvina Case, SERVER MANAGER MANAGER OF PHOTOGRAPHY Social History Tobacco Use Types Packs/Day Years [...] this encounter Progress Notes * Alvina Case, ATMOSPHERIC PHYSICIST - 09/10/2011 11:24 AM CST Progress Note Created by: Alvina Case N.P. [id number] DATE: 09/07/2011 PRASANTH DELCID DATE OF : 1945 AGE: [age] years old Referring Physician: AVIVA GUZMAN Referring Clinic: [facility] CURRENT DIAGNOSES 1. - Bradycardia, 427.89 ALLERGIES [...] active at work and walking; Occupation - [employer], [employer]; Place of - [place]; Hours Worked - 40 hours per week; [...] [facility] and to [facility] her primary care [...] on filedocumented in this encounter Care Teams Validation Engineer Relationship Specialty Start Date End Date Aviva Duggan MD [facility] [address] [place] [address] PCP - General Family Practice 12/18/10 06/18/14 Miles Martinez MD PCP - General 06/19/14 10/20/14 Jose Juarez MD [address] [place] [phone] PCP - General Internal Medicine 10/21/14 12/07/16 Jerilyn Cervantes MD [facility] [address] [place] [address] PCP - General Family Practice 12/08/16 Jose Juarez MD [address] [place] [phone] PCP - Assigned PCP 06/02/14 12/12/18 Jose Juarez MD [address] [place] [phone] Assigned PCP 09/01/14 01/20/19 documented as of this encounter
--- OUTSIDE RECORDS SUMMARY | 2024-02-23 09:19 | XMS_ITS | Encounter Summary ---
Author Name Unknown Organization [place] Address [address] [facility] [place] [address] Care Team Providers Care Environmental Compliance Engineer Name Role Phone Aviva Duggan MD Primary Care Prov ider Miles Martinez MD Primary Care Provider Unavailabl e Jose Juarez MD Primary Care Provider Jerilyn Cervantes MD Primary Care Provider + Jose Juarez MD Unavailable [phone] Jose Juarez MD Unavailable [phone] Encounter Details Date Type Department Care Team (Late st Contact Info) Description 12/07/2012 Office Visit-[facility] [address] [place] [address] Raza Tomlin MD [address] [facility] [address] [place] [address] Social History Tobacco Use Types Packs/Day [...] old Referring Physician: AVIVA GUZMAN Referring Clinic: [facility] CURRENT DIAGNOSES 1. - Bradycardia, 427.89 2. [...] Mr. Delcid is a delightful 67-year-old female [place] immigrantwho has been to urgent care and [...] for a trip to go back to [place] February 22 of this year. 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 Thank you for this referral. Leon do not hesitate to call me with any questions or concerns. TODAYS ORDERS 1. 12 Lead EKG Today 2. Sleep Study Schedule At [facility] 3. 2D, color flow, doppler 1 week 4. F/U with Janene Mcgill, P.A. 7-14 days 5. BMP Today 6. TSH Today Raza Tomlin M.D. documented in this encounter Plan of Treatment Not on file documented as of this encounter Visit Diagnoses Not on filedocumented in this encounter Care Teams Environmental Compliance Engineer Relationship Specialty Start Date End Date Aviva Duggan MD [facility] [address] [place] [address] PCP - General Family Practice 12/18/10 06/18/14 Miles Martinez MD PCP - General 06/19/14 10/20/14 Jose Juarez MD [address] [place] [phone] PCP - General Internal Medicine 10/21/14 12/07/16 Jerilyn Cervantes MD [facility] & [address] [address] PCP - General Family Practice 12/08/16 Jose Juarez MD [address] [place] [phone] PCP - Assigned PCP 06/02/14 12/12/18 Jose Juarez MD [address] [place] [phone] Assigned PCP 09/01/14 01/20/19 documented as of this encounter
--- OUTSIDE RECORDS SUMMARY | 2024-02-23 09:19 | XMS_ITS | Encounter Summary ---
Author Name Unknown Organization [place] Address [address] [place] [address] Care Team Providers Care Technical Implementation Lead Name Role Phone Aviva Duggan MD Primary Care Prov ider Miles Martniez MD Primary Care Provider Unavailabl e Jose Juarez MD Primary Care Provider [phone] Jerilyn Cervantes MD Primary Care Provider + Jose Juarez MD Unavailable [phone] Jose Juarez MD Unavailable [phone] Reason for Visit * Reason Comments Medication Refill Encounter Details Date Type Department Care Team (Late st Contact Info) Description 09/09/[address] [address] Aviva Duggan MD [facility] [place] [address] Medication Refill Social History Tobacco [...] encounter Miscellaneous Notes * Telephone Encounter - Jamila Cotton - 09/11/2013 11:33 AM CST Last seen-05/11/13 NGUAL SALES REPRESENTATIVE documented in this encounter Plan of Treatment Not on file documented as of this encounter Visit Diagnoses Diagnosis HTN (hypertension)- Primary Unspecified essential hypertension documented in this encounter Care Teams Technical Implementation Lead Relationship Specialty Start Date End Date Aviva Duggan MD [facility] [address] [place] [address] PCP - General Family Practice 12/18/10 06/18/14 Miles Martinez MD PCP - General 06/19/14 10/20/14 Jose Juarez MD [address] [place] [phone] PCP - General Internal Medicine 10/21/14 12/07/16 Jerilyn Cervantes MD [facility] & [address] [address] PCP - General Family Practice 12/08/16 Jose Juarez MD [address] [place] [phone] PCP - Assigned PCP 06/02/14 12/12/18 Jose Juarez MD [address] [place] [phone] Assigned PCP 09/01/14 01/20/19 documented as of this encounter
--- OUTSIDE RECORDS SUMMARY | 2024-02-23 09:19 | XMS_ITS | Encounter Summary ---
Author Name Unknown Organization [place] Address [address] [place] [address] Care Team Providers Care Vegetable I Farmworker Name Role Phone Aviva Duggan MD Primary Care Prov ider Miles Martinez MD Primary Care Provider Unavailabl e Jose Juarez MD Primary Care Provider Jerilyn Cervantes MD Primary Care Provider + Jose Juarez MD Unavailable [phone] Jose Juarez MD Unavailable [phone] Reason for Visit * Reason Comments Medication Refill Encounter Details Date Type Department Care Team (Late st Contact Info) Description 05/22/[address] [address] Aviva Duggan MD [facility] [place] [address] Medication Refill Social History Tobacco [...] encounter Miscellaneous Notes * Telephone Encounter - UgaldeTiffanie recinosa - 06/03/2014 2:09 PM CDT Called patient to informed her to start Lipitor [address] Noyola. Rx has been sent to pharmacy.TIERA Canchola documented in this encounter Plan of Treatment Not on file documented as of this encounter Visit Diagnoses Diagnosis Anxiety- Primary Anxiety state, unspecified Pure hypercholesterolemia documented in this encounter Care Teams Vegetable I Farmworker Relationship Specialty Start Date End Date Aviva Duggan MD [facility] [address] [place] [address] PCP - General Family Practice 12/18/10 06/18/14 Miles Martinez MD PCP - General 06/19/14 10/20/14 Jose Juarez MD [address] [place] [phone] PCP - General Internal Medicine 10/21/14 12/07/16 Jerilyn Cervantes MD [facility] & [address] [address] PCP - General Family Practice 12/08/16 Jose Juarez MD [address] [place] [phone] PCP - Assigned PCP 06/02/14 12/12/18 Jose Juarez MD [address] [place] [phone] Assigned PCP 09/01/14 01/20/19 documented as of this encounter
--- OUTSIDE RECORDS SUMMARY | 2024-02-23 09:19 | XMS_ITS | Encounter Summary ---
Author Name Unknown Organization [place] Address [address] [place] [address] Care Team Providers Care Sr. Operations Manager Name Role Phone Avvia Duggan MD Primary Care Prov ider Miles Martinez MD Primary Care Provider Unavailabl e Jose Juarez MD Primary Care Provider [phone] Jerilyn Cervantes MD Primary Care Provider + Jose Juarez MD Unavailable [phone] Jose Juarez MD Unavailable [phone] Reason for Visit * Reason Comments Medication Refill Encounter Details Date Type Department Care Team (Late st Contact Info) Description 02/14/[address] [address] Aviva Duggan MD [facility] [place] [address] Medication Refill Social History Tobacco [...] unspecified documented in this encounter Care Teams Sr. Operations Manager Relationship Specialty Start Date End Date Aviva Duggan MD [facility] [address] [place] [address] PCP - General Family Practice 12/18/10 06/18/14 Miles Martinez MD PCP - General 06/19/14 10/20/14 Jose Juarez MD [address] [place] [phone] PCP - General Internal Medicine 10/21/14 12/07/16 Jerilyn Cervantes MD [facility] & [address] [address] PCP - General Family Practice 12/08/16 Jose Juarez MD [address] [place] [phone] PCP - Assigned PCP 06/02/14 12/12/18 Jose Juarez MD [address] [place] [phone] Assigned PCP 09/01/14 01/20/19 documented as of this encounter
--- OUTSIDE RECORDS SUMMARY | 2024-02-23 09:19 | XMS_ITS | Encounter Summary ---
Author Name Unknown Organization [place] Address [address] [facility] [place] [address] Care Team Providers Care Dress Draper Name Role Phone Aviva Duggan MD Primary Care Prov ider Miles Martinez MD Primary Care Provider Unavailabl e Jose Juarez MD Primary Care Provider [phone] Jerilyn Cervantes MD Primary Care Provider + Jose Juarez MD Unavailable [phone] Jose Juarez MD Unavailable [phone] Encounter Details Date Type Department Care Team (Late st Contact Info) Description 12/17/2013 Office Visit-[facility] [address] [place] [address] Raza Tomlin MD [address] [facility] [address] [place] [address] Social History Tobacco Use Types [...] old Referring Physician: AVIVA DUGGAN Referring Clinic: [facility] CURRENT DIAGNOSES 1. - Bradycardia, 427.89 2. 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 Delcid [...] me with any questions or concerns. <FONT COLOR=#[id number]><FONT POINT=10> TODAYS ORDERS 1. Return prn Raza Tomlin M.D. documented in this encounter Plan of Treatment Not on file documented as of this encounter Visit Diagnoses Not on filedocumented in this encounter Care Teams Dress Draper Relationship Specialty Start Date End Date Aviva Duggan MD [facility] [address] [place] [address] PCP - General Family Practice 12/18/10 06/18/14 Miles Martinez MD PCP - General 06/19/14 10/20/14 Jose Juarez MD [address] [place] [phone] PCP - General Internal Medicine 10/21/14 12/07/16 Jerilyn Cervantes MD [facility] & [address] [address] PCP - General Family Practice 12/08/16 Jose Juarez MD [address] [place] [phone] PCP - Assigned PCP 06/02/14 12/12/18 Jose Juarez MD [address] [place] [phone] Assigned PCP 09/01/14 01/20/19 documented as of this encounter
--- OUTSIDE RECORDS SUMMARY | 2024-02-23 09:19 | XMS_ITS | Encounter Summary ---
Author Name Unknown Organization [place] Address [address] [place] [address] Care Team Providers Care Secondary School Registrar Name Role Phone Aviva Duggan MD Primary Care Prov ider Miles Martinez MD Primary Care Provider Unavailabl e Jose Juarez MD Primary Care Provider Jerilyn Cervantes MD Primary Care Provider + Jose Juarez MD Unavailable [phone] Jose Juarez MD Unavailable [phone] Reason for Visit * Reason Comments Refill Request Encounter Details Date Type Department Care Team (Late st Contact Info) Description 07/17/2013 Refill [facility] [address] [place] [phone] Aviva Duggan MD [facility] [place] [address] Refill Request Social History Tobacco [...] Primary documented in this encounter Care Teams Secondary School Registrar Relationship Specialty Start Date End Date Aviva Duggan MD [facility] [address] [place] [address] PCP - General Family Practice 12/18/10 06/18/14 Miles Martinez MD PCP - General 06/19/14 10/20/14 Jose Juarez MD [address] [place] [phone] PCP - General Internal Medicine 10/21/14 12/07/[address] [facility] & [address] [address] PCP - General Family Practice 12/08/16 Jose Juarez MD [address] [place] [phone] PCP - Assigned PCP 06/02/14 12/12/18 Jose Juarez MD [address] [place] [phone] Assigned PCP 09/01/14 01/20/19 documented as of this encounter
--- OUTSIDE RECORDS SUMMARY | 2024-02-23 09:19 | XMS_ITS | Encounter Summary ---
Author Name Unknown Organization [place] Address [address] [place] [address] Care Team Providers Care Solder Making Supervisor Name Role Phone Jose Juarez MD Primary Care Provider Jerilyn Cervantes MD Primary Care Provider + Jose Juarez MD Unavailable [phone] Jose Juarez MD Unavailable [phone] Reason for Visit * Reason Onset Date Comments Erroneous encounter-disregard 08/26/2015 op ened by mistake Encounter Details Date Type Department Care Team (Late st Contact Info) Description 08/26/[address] [facility] [address] [place] [phone] Aviva Duggan MD [facility] [address] [place] [address] Erroneous encounter-disregard (opened by mistake) [...] 08/26/2015 1:09 PM CST Last OV 05/24/14 [facility] STRATEGIST documented in this encounter Plan of Treatment Not on file documented as of this encounter Visit Diagnoses Not on filedocumented in this encounter Care Teams Solder Making Supervisor Relationship Specialty Start Date End Date Jose Juarez MD [address] [place] [phone] PCP - General Internal Medicine 10/21/14 12/07/16 Jerilyn Cervantes MD [facility] & [address] [address] PCP - General Family Practice 12/08/16 Jose Juarez MD [address] [place] [phone] PCP - Assigned PCP 06/02/14 12/12/18 Jose Juarez MD [address] [place] [phone] Assigned PCP 09/01/14 01/20/19 documented as of this encounter
--- OUTSIDE RECORDS SUMMARY | 2024-02-23 09:19 | XMS_ITS | Encounter Summary ---
Author Name Unknown Organization [place] Address [address] [facility] [place] [address] Care Team Providers Care Evaluation Engineer Name Role Phone Aviva Duggan MD Primary Care Prov ider DoctorMiles MD Primary Care Provider Unavailabl e Jose Juarez MD Primary Care Provider [phone] Jerilyn Cervantes MD Primary Care Provider + Jose Juarez MD Unavailable [phone] Jose Juarez MD Unavailable [phone] Encounter Details Date Type Department Care Team (Late st Contact Info) Description 11/29/2013 Office Visit-[facility] [id number] [place] [phone] Isaac Cheatham MD Social History Tobacco Use [...] old Referring Physician: AVIVA DUGGAN Referring Clinic: ([facility] CURRENT DIAGNOSES 1. - Atrial [...] She is a 68-year-old white female from [place]. 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 & [address] [address] PCP - General Family Practice 12/08/16 Jose Juarez MD [address] [place] [phone] PCP - Assigned PCP 06/02/14 12/12/18 Jose Juarez MD [address] [place] [phone] Assigned PCP 09/01/14 01/20/19 documented as of this encounter
--- OUTSIDE RECORDS SUMMARY | 2024-02-23 09:19 | XMS_ITS | Clinical Summary ---
Author Name Unknown Organization [place] Address [address] [place] [address] Care Team Providers Care Yarn Texturing Machine Operator Name Role Phone Jerilyn Cervantes MD Primary Care Provider + Allergies Active Allergy Reactions Criticality Noted Date Comments Quinolones Itching 01/14/2011 Influenza Virus Vaccine Other (See Comments) 01/14/2011 Hospitalized as child Medications Medication Sig Dispensed Refills Start Date End Date Status Calcium Carbonate-Vitamin D (CALCIUM 600 + D OR) Take 2 tablets by mouth daily. Active [place]-3 Fatty Acids (FISH OIL PO) Take 1 [...] goal <130 07/30/2014 Vertebral fracture 10/28/2013 Health Correction 04/26/2013 Overview: State Tier Level: Tier 2 [...] (138 lb 6.4 oz) 12/08/2016 3:30 PM DISTRIBUTOR OF DIRECTORIES Height 157.5 cm (5' 2) 12/08/2016 3:30 PM DISTRIBUTOR OF DIRECTORIES Body Mass Index 25.31 12/08/2016 3:30 PM DISTRIBUTOR OF DIRECTORIES Plan of Treatment Not on file Advance Directives For more information, please contact: [phone] * Full Code (Latest Code Status on File) Date Activated Date Inactivated Comments 11/01/2013 1:52 PM 12/31/2018 5:26 PM * Full Code Date Activated Date Inactivated Comments 10/28/2013 5:55 PM 11/01/2013 1:52 PM Care Teams Yarn Texturing Machine Operator Relationship Specialty Start Date End Date Jerilyn Cervantes MD [facility] [address] [place] [address] PCP - General Family Practice 12/08/16
--- OUTSIDE RECORDS SUMMARY | 2024-02-23 09:19 | XMS_ITS | Encounter Summary ---
Author Name Unknown Organization [place] Address [address] [place] [address] Care Team Providers Care Dragger Name Role Phone Aviva Duggan MD Primary Care Prov ider Miles Martinez MD Primary Care Provider Unavailabl e Jose Juarez MD Primary Care Provider Jerilyn Cervantes MD Primary Care Provider + Jose Juarez MD Unavailable [phone] Jose Juarez MD Unavailable [phone] Reason for Visit * Reason Comments Medication Refill Encounter Details Date Type Department Care Team (Late st Contact Info) Description 06/17/[address] [phone] Aviva Duggan MD [facility] [place] [address] Medication Refill Social History Tobacco [...] on filedocumented in this encounter Care Teams Dragger Relationship Specialty Start Date End Date Aviva Duggan MD [facility] [address] [place] [address] PCP - General Family Practice 12/18/10 06/18/14 Miles Martinez MD PCP - General 06/19/14 10/20/14 Jose Juarez MD [address] [place] [phone] PCP - General Internal Medicine 10/21/14 12/07/16 Jerilyn Cervantes MD [facility] & [address] [address] PCP - General Family Practice 12/08/16 Jose Juarez MD [address] [place] [phone] PCP - Assigned PCP 06/02/14 12/12/18 Jose Juarez MD [address] [place] [phone] Assigned PCP 09/01/14 01/20/19 documented as of this encounter
--- OUTSIDE RECORDS SUMMARY | 2024-02-23 09:19 | XMS_ITS | Encounter Summary ---
Author Name Unknown Organization [place] Address [address] [place] [address] Care Team Providers Care Engineering Technician Name Role Phone Jose Juarez MD Primary Care Provider [phone] Jerilyn Cervantes MD Primary Care Provider + Jose Juarez MD Unavailable [phone] Jose Juarez MD Unavailable [phone] Reason for Visit * Reason Comments Medication Refill Encounter Details Date Type Department Care Team (Late st Contact Info) Description 04/02/2015 Refill [facility] [address] [place] [phone] Aviva Duggan MD [facility] [place], [place] [phone] Medication Refill Social History Tobacco Use Types [...] unspecified documented in this encounter Care Teams Engineering Technician Relationship Specialty Start Date End Date Jose Juarez MD [address] [place] [phone] PCP - General Internal Medicine 10/21/14 12/07/16 Jerilyn Cervantes MD [address] [address] PCP - General Family Practice 12/08/16 Jose Juarez MD [address] [place] [phone] PCP - Assigned PCP 06/02/14 12/12/18 Jose Juarez MD [address] [place] [phone] Assigned PCP 09/01/14 01/20/19 documented as of this encounter
--- OUTSIDE RECORDS SUMMARY | 2024-02-23 09:19 | XMS_ITS | Encounter Summary ---
Author Name Unknown Organization [place] Address [address] [place] [address] Care Team Providers Care Desk Editor Name Role Phone Aviva Duggan MD Primary Care Prov ider Miles Martinez MD Primary Care Provider Unavailabl e Jose Juarez MD Primary Care Provider [phone] Jerilyn Cervantes MD Primary Care Provider + Jose Juarez MD Unavailable [phone] Jose Juarez MD Unavailable [phone] Encounter Details Date Type Department Care Team (Late st Contact Info) Description 12/14/2012 Office Visit-[facility] [id number] [place] [phone] Janene Mcgill, MOLDING AND TRIM INSTALLER SIEVE GRADER TENDER Social History Tobacco Use Types Packs/Day Years [...] of this encounter Progress Notes * Janene Mcgill, MODESTA - 12/14/2012 3:05 PM CST Progress Note Created by: Janene Archuleta N.P. DATE: 12/14/2012 PRASANTH DELCID DATE OF : 1945 AGE: [age] years old Referring Physician: AVIVA GUZMAN Referring Clinic: [facility] CURRENT DIAGNOSES 1. - Bradycardia, 427.89 2. [...] Mr. Delcid is a delightful 67-year-old female [place] immigrant who presents in clinic for a [...] pulmonary HTN. Trace to mild TR. 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 Weight- 121.00 lbs. Height- 61 [...] on filedocumented in this encounter Care Teams Desk Editor Relationship Specialty Start Date End Date Aviva Duggan MD [facility] [address] [place] [address] PCP - General Family Practice 12/18/10 06/18/14 Miles Martinez MD PCP - General 06/19/14 10/20/14 Jose Juarez MD [address] [place] [phone] PCP - General Internal Medicine 10/21/14 12/07/16 Jerilyn Cervantes MD [facility] & [address] [address] PCP - General Family Practice 12/08/16 Jose Juarez MD [address] [place] [phone] PCP - Assigned PCP 06/02/14 12/12/18 Jose Juarez MD [address] [place] [phone] Assigned PCP 09/01/14 01/20/19 documented as of this encounter
--- OUTSIDE RECORDS SUMMARY | 2024-02-23 09:19 | XMS_ITS | Encounter Summary ---
Author Name Unknown Organization [place] Address [address] [place] [address] Care Team Providers Care Trolley Wire Installer Name Role Phone Aviva Duggan MD Primary Care Prov ider Miles Martinez MD Primary Care Provider Unavailabl e Jose Juarez MD Primary Care Provider Jerilyn Cervantes MD Primary Care Provider + Jose Juarez MD Unavailable [phone] Jose Juarez MD Unavailable [phone] Reason for Visit * Reason Comments Refill Request Encounter Details Date Type Department Care Team (Late st Contact Info) Description 04/07/2013 Refill [facility] [address] [place] [phone] [facility] [place] [address] Refill Request Social History Tobacco [...] unspecified documented in this encounter Care Teams Trolley Wire Installer Relationship Specialty Start Date End Date Aviva uDggan MD [facility] [address] [place] [address] PCP - General Family Practice 12/18/10 06/18/14 Miles Martinez MD PCP - General 06/19/14 10/20/14 Jose Juarez MD [address] [place] [phone] PCP - General Internal Medicine 10/21/14 12/07/16 Jerilyn Cevrantes MD [facility] & [address] [address] PCP - General Family Practice 12/08/16 Jose Juarez MD [address] [place] [phone] PCP - Assigned PCP 06/02/14 12/12/18 Jose Juarez MD [address] [place] [phone] Assigned PCP 09/01/14 01/20/19 documented as of this encounter
--- OUTSIDE RECORDS SUMMARY | 2024-02-23 09:19 | XMS_ITS | Encounter Summary ---
Author Name Unknown Organization [place] Address [address] [place] [address] Care Team Providers Care Telemetry Registered Nurse Name Role Phone Aviva Duggan MD Primary Care Prov ider Miles Martinez MD Primary Care Provider Unavailabl e Jose Juarez MD Primary Care Provider [phone] Jerilyn Cervantes MD Primary Care Provider + Jose Juarez MD Unavailable [phone] Jose Juarez MD Unavailable [phone] Reason for Visit * Reason Comments Refill Request Encounter Details Date Type Department Care Team (Late st Contact Info) Description 07/10/2013 Refill [facility] [address] [place] [phone] Aviva Duggan MD [facility] [place] [address] Refill Request Social History Tobacco [...] classified documented in this encounter Care Teams Telemetry Registered Nurse Relationship Specialty Start Date End Date Aviva Duggan MD [facility] [address] [place] [address] PCP - General Family Practice 12/18/10 06/18/14 Miles Martinez MD PCP - General 06/19/14 10/20/14 Jose Juarez MD [address] [place] [phone] PCP - General Internal Medicine 10/21/14 12/07/16 Jerilyn Cervantes MD [facility] & [address] [address] PCP - General Family Practice 12/08/16 Jose Juarez MD [address] [place] [phone] PCP - Assigned PCP 06/02/14 12/12/18 Jose Juarez MD [address] [place] [phone] Assigned PCP 09/01/14 01/20/19 documented as of this encounter
--- OUTSIDE RECORDS SUMMARY | 2024-02-23 09:19 | XMS_ITS | Encounter Summary ---
Author Name Unknown Organization [place] Address [address] [facility] [place] [address] Care Team Providers Care Diet Counselor Name Role Phone Aviva Duggan MD Primary Care Prov ider Miles Martinez MD Primary Care Provider Unavailabl e Jose Juarez MD Primary Care Provider Jerilyn Cervantes MD Primary Care Provider + Jose Juarez MD Unavailable [phone] Jose Juarez MD Unavailable [phone] Encounter Details Date Type Department Care Team (Late st Contact Info) Description 04/06/2013 Office Visit-[facility] [address] [place] [phone] Zeferino Hill MD [address] [facility] [address] [place], [place] [phone] Social History Tobacco Use Types Packs/Day Years [...] Progress Note Created by: Zeferino Hill M.D. [id number] DATE: 04/06/2013 PRASANTH DELCID DATE OF : 1945 AGE: [age] years old Referring Physician: AVIVA GUZMAN Referring Clinic: [facility] CURRENT DIAGNOSES 1. - Atrial Fibrillation, [...] Ms. Delcid is a 67-year-old female of [place] decent. I first saw her a few months ago for recurrent symptomatic atypical atrial fibrillation in the background of hypertension and normal LV function. At that time I recommended her to be on amiodarone given that she was going to spend a month in [place] for vacation along with [place]. I asked her to come back today to discuss terminal operations supervisor treatment andalso the fact that she wished [...] on filedocumented in this encounter Care Teams Diet Counselor Relationship Specialty Start Date End Date Aviva Duggan MD [facility] [address] [place] [address] PCP - General Family Practice 12/18/10 06/18/14 Miles Martinez MD PCP - General 06/19/14 10/20/14 Jose Juarez MD [address] [place] [phone] PCP - General Internal Medicine 10/21/14 12/07/16 Jerilyn Cervantes MD [facility] & [address] [address] PCP - General Family Practice 12/08/16 Jose Juarez MD [address] [place] [phone] PCP - Assigned PCP 06/02/14 12/12/18 Jose Juarez MD [address] [place] [phone] Assigned PCP 09/01/14 01/20/19 documented as of this encounter
--- OUTSIDE RECORDS SUMMARY | 2024-02-23 09:19 | XMS_ITS | Encounter Summary ---
Author Name Unknown Organization [place] Address [address] [facility] [place] [address] Care Team Providers Care Lumber Loader Name Role Phone Aviva Duggan MD Primary Care Prov ider Miles Martinez MD Primary Care Provider Unavailabl e Jsoe Juarez MD Primary Care Provider Jerilyn Cervantes MD Primary Care Provider + Jose Juarez MD Unavailable [phone] Jose Juarez MD Unavailable [phone] Encounter Details Date Type Department Care Team (Late st Contact Info) Description 01/11/2013 Office Visit-[facility] [address] [place] [phone] Zeferino Hill MD [address] [facility] [address] [place], [place] [address] Social History Tobacco Use Types Packs/Day Years [...] Progress Note Created by: Zeferino Hill M.D. [id number] DATE: 01/11/2013 PRASANTH DELCID DATE OF : 1945 AGE: [age] years old Referring Physician: AVIVA GUZMAN Referring Clinic: [facility] CURRENT DIAGNOSES 1. - Bradycardia, 427.89 [...] to a return to home country, which [facility] in the next month for a one-month [...] continue with Xarelto for now given her [id number] score of at 3 given her beinga female, age and history of hypertension. I would agree with anticoagulant. After she gets back from [place] I would have her on Coumadin to [...] on filedocumented in this encounter Care Teams Lumber Loader Relationship Specialty Start Date End Date Aviva Duggan MD [facility] [address] [place] [address] PCP - General Family Practice 12/18/10 06/18/14 Miles Martinez MD PCP - General 06/19/14 10/20/14 Jose Juarez MD [address] [place] [phone] PCP - General Internal Medicine 10/21/14 12/07/16 Jerilyn Cervantes MD [facility] & [address] [address] PCP - General Family Practice 12/08/16 Jose Juarez MD [address] [place] [phone] PCP - Assigned PCP 06/02/14 12/12/18 Jose Juarez MD [address] [place] [phone] Assigned PCP 09/01/14 01/20/19 documented as of this encounter
--- OUTSIDE RECORDS SUMMARY | 2024-02-23 09:19 | XMS_ITS | Encounter Summary ---
Author Name Unknown Organization [place] Address [address] [facility] [address] Care Team Providers Care Continuous Mining Machine Operator Name Role Phone Aviva Duggan MD Primary Care Prov ider Miles Martinez MD Primary Care Provider Unavailabl e Jose Juarez MD Primary Care Provider [phone] Jerilyn Cervantes MD Primary Care Provider + Jose Juarez MD Unavailable [phone] Jose Juarez MD Unavailable [phone] Encounter Details Date Type Department Care Team (Late st Contact Info) Description 07/02/2013 Office Visit-[facility] [address] [place] [phone] Zeferino Hill MD [address] [facility] [address] [place], [place] [address] Social History Tobacco Use Types Packs/Day Years [...] Progress Note Created by: Zeferino Hill M.D. [id number] DATE: 07/02/2013 PRASANTH DELCID DATE OF : 1945 AGE: [age] years old Referring Physician: AVIVA SILVESTRE Referring Clinic: ([facility] CURRENT DIAGNOSES 1. - Atrial Fibrillation, [...] know, Prasanth is a 67-year-old female of [place] descent who is very friendly but very [...] stopped the flecainide she should contact her assistant production editor for further evaluation. The patient will continue [...] on filedocumented in this encounter Care Teams Continuous Mining Machine Operator Relationship Specialty Start Date End Date Aviva Duggan MD [facility] [address] [place] [address] PCP - General Family Practice 12/18/10 06/18/14 Miles Martinez MD PCP - General 06/19/14 10/20/14 Jose Juarez MD [address] [place] [phone] PCP - General Internal Medicine 10/21/14 12/07/16 Jerilyn Cervantes MD [address] [address] PCP - General Family Practice 12/08/16 Jose Juarez MD [address] [place] [phone] PCP - Assigned PCP 06/02/14 12/12/18 Jose Juarez MD [address] [place] [phone] Assigned PCP 09/01/14 01/20/19 documented as of this encounter
--- OUTSIDE RECORDS SUMMARY | 2024-02-23 09:20 | XMS_ITS | Encounter Summary ---
Author Name Unknown Organization [place] Address [address] [facility] [place] [address] Care Team Providers Care Warehouse Shipping Associate Name Role Phone Aviva Duggan MD Primary Care Prov ider DoctorMiles MD Primary Care Provider Unavailabl e Jose Juarez MD Primary Care Provider Jerilyn Cervantes MD Primary Care Provider + Jose Juarez MD Unavailable [phone] Jose Juarez MD Unavailable [phone] Encounter Details Date Type Department Care Team (Late st Contact Info) Description 08/03/2011 Office Visit-[facility] [place] [address] [facility] [address] [place] [phone] Mendez Jimenez MD XXX XXX [address] [facility] [address] [place], [place] [address] Social History Tobacco Use Types Packs/Day Years [...] old Referring Physician: AVIVA GUZMAN Referring Clinic: [facility] CURRENT DIAGNOSES 1. 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 [address] [place] [address] PCP - General Family Practice 12/18/10 06/18/14 Miles Martinez MD PCP - General 06/19/14 10/20/14 Jose Juarez MD [address] [place] [phone] PCP - General Internal Medicine 10/21/14 12/07/16 Jerilyn Cervantes MD [facility] & [address] [address] PCP - General Family Practice 12/08/16 Jose Juarez MD [address] [place] [phone] PCP - Assigned PCP 06/02/14 12/12/18 Jose Juarez MD [address] [place] [phone] Assigned PCP 09/01/14 01/20/19 documented as of this encounter
== END 2024-02-21 07:21 | disposition home or self-care (01) ==
LOC: NFLDREF 02-23 09:17
PROVIDERS: PCP Family Medicine; Referring Provider Family Medicine; Visit Provider Family Medicine
DX: I10 Essential (primary) hypertension (principal); R74.01 Elevation of levels of liver transaminase levels
CPT/HCPCS: 80053

== ENCOUNTER 2024-11-22 07:50 | Outpatient (CLI) | payer OTHER, SELFPAY | END 2024-11-22 07:51 | disposition home or self-care (01) | LOC: NFLDREF 11-24 03:08 | PROVIDERS: PCP Family Medicine; Referring Provider Family Medicine; Visit Provider Family Medicine | DX: I10 Essential (primary) hypertension (principal); M81.0 Age-related osteoporosis without current pathological fracture; E78.5 Hyperlipidemia, unspecified; E03.8 Other specified hypothyroidism | CPT/HCPCS: 80053; 80061; 82306; 84443 ==

== ENCOUNTER 2024-11-25 09:05 | Emergency (ER) | payer OTHER, SELFPAY ==
--- OUTSIDE RECORDS SUMMARY | 2024-11-25 09:07 | XMS_ITS | Encounter Summary ---
Author Organization [place] Address [facility] [place] [address] Care Team Providers Care Toxicology Supervisor Name Role Phone Aviva Duggan MD Primary Care Prov ider Miles Martinez MD Primary Care Provider Unavailabl e Jose Juarez MD Primary Care Provider Jerilyn Cervantes MD Primary Care Provider + Jose Juarez MD Unavailable [phone] Jose Juarez MD Unavailable [phone] Encounter Details Date Type Department Care Team (Late st Contact Info) Description 01/11/2013 Office Visit-[facility] [address] [place] [phone] Zeferino Hill MD [address] [facility] [address] [place], [place] [address] Social History Tobacco Use Types Packs/Day Years Used Date Smoking Tobacco: Former Cigarettes 0.2 5 0 01/15/1976 - 01/14/1981 Smokeless Tobacco: Never Alcohol Use Standard Drinks/Week Comments Yes 0 (1 standard drink = 0.6 oz pur e alcohol) occasional social only Comments No Sex and Gender Information Value Date Recorded Sex Assigned at Not on file Legal Sex Female 3:27 AM PAROLE SUPERVISOR Gender Identity Not on file Sexual Orientation Not on file documented as of this encounter Progress Notes * Zeferino Hill MD - 01/16/2013 10:45 AM CDT Progress Note Created by: Zeferino Hill M.D. [id number] DATE: 01/11/2013 PRASANTH DELCID DATE OF : 1945 AGE: [age] years old Referring Physician: AVIVA GUZMAN Referring Clinic: [facility] CURRENT DIAGNOSES 1. - Bradycardia, 427.89 [...] [place]-month [...] continue with Xarelto for now given her [id number] score of at 3 given her beinga female, age and history of hypertension. I would agree with anticoagulant. After she gets back from [place] I would have her on Coumadin to [...] on filedocumented in this encounter Care Teams Toxicology Supervisor Relationship Specialty Start Date End Date Aviva Duggan MD [facility] [address] [place] [address] PCP - General Family Practice 12/18/10 06/18/14 Miles Martinez MD PCP - General 06/19/14 10/20/14 Jose Juarez MD [address] [place] [phone] PCP - General Internal Medicine 10/21/14 12/07/16 Jerilyn Cervantes MD [facility] & [address] [address] PCP - General Family Practice 12/08/16 Jose Juarez MD [address] [place] [phone] PCP - Assigned PCP 06/02/14 12/12/18 Jose Juarez MD [address] [place] [phone] Assigned PCP 09/01/14 01/20/19 documented as of this encounter
--- OUTSIDE RECORDS SUMMARY | 2024-11-25 09:07 | XMS_ITS | Encounter Summary ---
Author Organization [place] Address [facility] [place] [address] Care Team Providers Care Supervisor Pile Driving Name Role Phone Aviva Duggan MD Primary Care Prov ider DoctorMiles MD Primary Care Provider Unavailabl e Jose Juarez MD Primary Care Provider [phone] Jerilyn Cervantes MD Primary Care Provider + Jose Juarez MD Unavailable [phone] Jose Juarez MD Unavailable [phone] Encounter Details Date Type Department Care Team (Late st Contact Info) Description 08/03/2011 Office Visit-[facility] [address] [place] [address] Mendez Jimenez MD XXX XXX [address] [facility] [address] [place], [place] [address] Social History Tobacco Use Types Packs/Day Years Used Date Smoking Tobacco: Former Cigarettes 0.2 5 0 01/15/1976 - 01/14/1981 Smokeless Tobacco: Never Alcohol Use Standard Drinks/Week Comments Yes 0 (1 standard drink = 0.6 oz pur e alcohol) occasional social only Comments No Sex and Gender Information Value Date Recorded Sex Assigned at Not on file Legal Sex Female 3:27 AM INDUSTRIAL ROOF 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 DATE: 08/03/2011 PRASANTH DELCID DATE OF : 1945 AGE: [age] years old Referring Physician: AVIVA GUZMAN Referring Clinic: [facility] CURRENT DIAGNOSES 1. 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; Place of - [place]; Hours Worked - 40 hours per week; [...] on filedocumented in this encounter Care Teams Supervisor Pile Driving Relationship Specialty Start Date End Date Aviva Duggan MD [facility] [address] [place] [address] PCP - General Family Practice 12/18/10 06/18/14 Miles Martinez MD PCP - General 06/19/14 10/20/14 Jose Juarez MD [address] [place] [phone] PCP - General Internal Medicine 10/21/14 12/07/16 Jerilyn Cervantes MD [facility] & [address] [address] PCP - General Family Practice 12/08/16 Jose Juarez MD [address] [place] [phone] PCP - Assigned PCP 06/02/14 12/12/18 Jose Juarez MD [address] [place] [phone] Assigned PCP 09/01/14 01/20/19 documented as of this encounter
--- OUTSIDE RECORDS SUMMARY | 2024-11-25 09:07 | XMS_ITS | Encounter Summary ---
Author Organization [place] Address [address] [place] [address] Care Team Providers Care Acid Tank Cleaner Name Role Phone Aviva Duggan MD Primary Care Prov ider Miles Martinez MD Primary Care Provider Unavailabl e Jose Juarez MD Primary Care Provider Jerilyn Cervantes MD Primary Care Provider + Jose Juarez MD Unavailable [phone] Jose Juarez MD Unavailable [phone] Reason for Visit * Reason Comments Medication Refill Encounter Details Date Type Department Care Team (Late st Contact Info) Description 09/09/2013 Refill [facility] [address] [address] Aviva Duggan MD [facility] [place] [address] Medication Refill Social History Tobacco [...] on file Legal Sex Female 3:27 AM CASTING OPERATOR HELPER Gender Identity Not on file Sexual Orientation Not on file documented as of this encounter Miscellaneous Notes * Telephone Encounter - Jamila Cotton - 09/11/2013 11:33 AM CST Last seen-05/11/13 ING OPERATOR HELPER documented in this encounter Plan of Treatment Not on file documented as of this encounter Visit Diagnoses Diagnosis HTN (hypertension)- Primary Unspecified essential hypertension documented in this encounter Care Teams Acid Tank Cleaner Relationship Specialty Start Date End Date Aviva Duggan MD [facility] [address] [place] [address] PCP - General Family Practice 12/18/10 06/18/14 Miles Martinez MD PCP - General 06/19/14 10/20/14 Jose Juarez MD [address] [place] [phone] PCP - General Internal Medicine 10/21/14 12/07/16 Jerilyn Cervantes MD [facility] & [address] [address] PCP - General Family Practice 12/08/16 Jose Juarez MD [address] [place] [phone] PCP - Assigned PCP 06/02/14 12/12/18 Jose Juarez MD [address] [place] [phone] Assigned PCP 09/01/14 01/20/19 documented as of this encounter
--- OUTSIDE RECORDS SUMMARY | 2024-11-25 09:07 | XMS_ITS | Encounter Summary ---
Author Organization [place] Address [address] [place] [address] Care Team Providers Care Graduate Research Assistant Name Role Phone Aviva Duggan MD Primary Care Prov ider Miles Martinez MD Primary Care Provider Unavailabl e Jose Juarez MD Primary Care Provider Jerilyn Cervantes MD Primary Care Provider + Jose Juarez MD Unavailable [phone] Jose Juarez MD Unavailable [phone] Reason for Visit * Reason Comments Medication Refill Encounter Details Date Type Department Care Team (Late st Contact Info) Description 06/17/2014 Refill [facility] [address] [address] Aviva Duggan MD [facility] [place] [address] Medication Refill Social History Tobacco [...] on file Legal Sex Female 3:27 AM PHYSICIAN OFFICE CLIN ASST Gender Identity Not on file Sexual Orientation Not on file documented as of this encounter Plan of Treatment Not on file documented as of this encounter Visit Diagnoses Not on filedocumented in this encounter Care Teams Graduate Research Assistant Relationship Specialty Start Date End Date Aviva Duggan MD [facility] [address] [place] [address] PCP - General Family Practice 12/18/10 06/18/14 Miles Martinez MD PCP - General 06/19/14 10/20/14 Jose Juarez MD [address] [place] [phone] PCP - General Internal Medicine 10/21/14 12/07/16 Jerilyn Cervantes MD [facility] & [address] [address] PCP - General Family Practice 12/08/16 Jose Juarez MD [address] [place] [phone] PCP - Assigned PCP 06/02/14 12/12/18 Jose Juarez MD [address] [place] [phone] Assigned PCP 09/01/14 01/20/19 documented as of this encounter
--- OUTSIDE RECORDS SUMMARY | 2024-11-25 09:07 | XMS_ITS | Encounter Summary ---
Author Organization [place] Address [address] [place] [address] Care Team Providers Care Tip Stitcher Name Role Phone Aviva Duggan MD Primary Care Prov ider Miles Martinez MD Primary Care Provider Unavailabl e Jose Juarez MD Primary Care Provider Jerilyn Cervantes MD Primary Care Provider + Jose Juarez MD Unavailable [phone] Jose Juarez MD Unavailable [phone] Reason for Visit * Reason Comments Refill Request Encounter Details Date Type Department Care Team (Late st Contact Info) Description 07/17/[address] [address] Aviva Duggan MD [facility] [place] [address] Refill Request Social History Tobacco [...] on file Legal Sex Female 3:27 AM PORTABLE TRACKMAN Gender Identity Not on file Sexual Orientation Not on file documented as of this encounter Plan of Treatment Not on file documented as of this encounter Visit Diagnoses Diagnosis Adjustment disorder with mixed anxiety and depressed mood- Primary documented in this encounter Care Teams Tip Stitcher Relationship Specialty Start Date End Date Aviva Duggan MD [facility] [address] [place] [address] PCP - General Family Practice 12/18/10 06/18/14 Miles Martinez MD PCP - General 06/19/14 10/20/14 Jose Juarez MD [address] [place] [phone] PCP - General Internal Medicine 10/21/14 12/07/16 Jerilyn Cervantes MD [facility] & [address] [address] PCP - General Family Practice 12/08/16 Jose Juarez MD [address] [place] [phone] PCP - Assigned PCP 06/02/14 12/12/18 Jose Juarez MD [address] [place] [phone] Assigned PCP 09/01/14 01/20/19 documented as of this encounter
--- OUTSIDE RECORDS SUMMARY | 2024-11-25 09:07 | XMS_ITS | Encounter Summary ---
Author Organization [place] Address [facility] [place] [address] Care Team Providers Care Teaching Specialists Name Role Phone Aviva Duggan MD Primary Care Prov ider Miles Martinez MD Primary Care Provider Unavailabl e Jose Juarez MD Primary Care Provider [phone] Jerilyn Cervantes MD Primary Care Provider + Jose Juarez MD Unavailable [phone] Jose Juarez MD Unavailable [phone] Encounter Details Date Type Department Care Team (Late st Contact Info) Description 07/02/2013 Office Visit-[facility] [address] [place] [phone] Zeferino Hill MD [address] [facility] [address] [place], [place] [address] Social History Tobacco Use Types Packs/Day Years Used Date Smoking Tobacco: Former Cigarettes 0.2 5 0 01/15/1976 - 01/14/1981 Smokeless Tobacco: Never Alcohol Use Standard Drinks/Week Comments Yes 0 (1 standard drink = 0.6 oz pur e alcohol) occasional social only Comments No Sex and Gender Information Value Date Recorded Sex Assigned at Not on file 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 [id number] DATE: 07/02/2013 PRASANTH DELCID DATE OF : 1945 AGE: [age] years old Referring Physician: AVIVA SILVESTRE Referring Clinic: ([facility]) [facility] CURRENT DIAGNOSES 1. - Atrial Fibrillation, [...] know, Prasanth is a 67-year-old female of [place] descent who is very friendly but very easily excitable witha history of symptomatic paroxysmal atrial fibrillation in the background of hypertension and preserved LV function. Initially when I first met her I had her on amiodarone for short-term given that she was going to go on an extensive vacation in [place] and therefore I wanted to minimize her [...] stopped the flecainide she should contact her radiologist for further evaluation. The patient will continue [...] on filedocumented in this encounter Care Teams Teaching Specialists Relationship Specialty Start Date End Date Aviva Duggan MD [facility] [address] [place] [address] PCP - General Family Practice 12/18/10 06/18/14 Miles Martinez MD PCP - General 06/19/14 10/20/14 Jose Juarez MD [address] [place] [phone] PCP - General Internal Medicine 10/21/14 12/07/16 Jerilyn Cervantes MD [facility] & [address] [address] PCP - General Family Practice 12/08/16 Jose Juarez MD [address] [place] [phone] PCP - Assigned PCP 06/02/14 12/12/18 Jose Juarez MD [address] [place] [phone] Assigned PCP 09/01/14 01/20/19 documented as of this encounter
--- OUTSIDE RECORDS SUMMARY | 2024-11-25 09:07 | XMS_ITS | Encounter Summary ---
Author Organization [place] Address [address] [place] [address] Care Team Providers Care Wire Repairer Name Role Phone Aviva Duggan MD Primary Care Prov ider Miles Martinez MD Primary Care Provider Unavailabl e Jose Juarez MD Primary Care Provider Jerilyn Cervantes MD Primary Care Provider + Jose Juarez MD Unavailable [phone] Jose Juarez MD Unavailable [phone] Reason for Visit * Reason Comments Medication Refill Encounter Details Date Type Department Care Team (Late st Contact Info) Description 02/14/2014 Refill [facility] [address] [address] Aviva Duggan MD [facility] [address] [place] [address] Medication Refill Social History Tobacco [...] on file 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 Gender Identity Not on file Sexual Orientation Not on file documented as of this encounter Plan of Treatment Not on file documented as of this encounter Visit Diagnoses Diagnosis Anxiety- Primary Anxiety state, unspecified documented in this encounter Care Teams Wire Repairer Relationship Specialty Start Date End Date Aviva Duggan MD [facility] [address] [place] [address] PCP - General Family Practice 12/18/10 06/18/14 Miles Martinez MD PCP - General 06/19/14 10/20/14 Jose Juarez MD [address] [place] [phone] PCP - General Internal Medicine 10/21/14 12/07/16 Jerilyn Cervantes MD [facility] & [address] [address] PCP - General Family Practice 12/08/16 Jose Juarez MD [address] [place] [phone] PCP - Assigned PCP 06/02/14 12/12/18 Jose Juarez MD [address] [place] [phone] Assigned PCP 09/01/14 01/20/19 documented as of this encounter
--- OUTSIDE RECORDS SUMMARY | 2024-11-25 09:07 | XMS_ITS | Encounter Summary ---
Author Organization [place] Address [address] [place] [address] Care Team Providers Care Correctional Counselor/Case Manager Name Role Phone Jose Juarez MD Primary Care Provider [phone] Jerilyn Cervantes MD Primary Care Provider + Jose Juarez MD Unavailable [phone] Jose Juarez MD Unavailable [phone] Reason for Visit * Reason Onset Date Comments Erroneous encounter-disregard 08/26/2015 op ened by mistake Encounter Details Date Type Department Care Team (Late st Contact Info) Description 08/26/2015 [facility] [address] [place] [address] Aviva Duggan MD [facility] [address] [place] [address] Erroneous encounter-disregard (opened by mistake) [...] on file Legal Sex Female 3:27 AM BOTTOM MAN Gender Identity Not on file Sexual Orientation Not on file documented as of this encounter Miscellaneous Notes * Telephone Encounter - Lakeisha Hernández - 08/26/2015 1:09 PM CST Last OV 05/24/14 OM MAN documented in this encounter Plan of Treatment Not on file documented as of this encounter Visit Diagnoses Not on filedocumented in this encounter Care Teams Correctional Counselor/Case Manager Relationship Specialty Start Date End Date Jose Juarez MD [address] [place] [phone] PCP - General Internal Medicine 10/21/14 12/07/16 Jerilyn Cervantes MD [facility] & [address] [address] PCP - General Family Practice 12/08/16 Jose Juarez MD [address] [place] [phone] PCP - Assigned PCP 06/02/14 12/12/18 Jose Juarez MD [address] [place] [phone] Assigned PCP 09/01/14 01/20/19 documented as of this encounter
--- OUTSIDE RECORDS SUMMARY | 2024-11-25 09:07 | XMS_ITS | Encounter Summary ---
Author Organization [place] Address [address] [place] [address] Care Team Providers Care Net Software Engineer Name Role Phone Aviva Duggan MD Primary Care Prov ider Miles Martinez MD Primary Care Provider Unavailabl e Jose Juarez MD Primary Care Provider Jerilyn Cervantes MD Primary Care Provider + Jose Juarez MD Unavailable [phone] Jose Juarez MD Unavailable [phone] Encounter Details Date Type Department Care Team (Late st Contact Info) Description 09/07/2011 Office Visit-[facility] [place] [address] [place] [phone] Alvina Case, VICE PRESIDENT PAYMENT NUMERICAL CONTROL OPERATOR Social History Tobacco Use Types Packs/Day Years Used Date Smoking Tobacco: Former Cigarettes 0.2 5 0 01/15/1976 - 01/14/1981 Smokeless Tobacco: Never Alcohol Use Standard Drinks/Week Comments Yes 0 (1 standard drink = 0.6 oz pur e alcohol) occasional social only Comments No Sex and Gender Information Value Date Recorded Sex Assigned at Not on file Legal Sex Female 3:[address] Gender Identity Not on file Sexual Orientation Not on file documented as of this encounter Progress Notes * Alvina Case, CHIEF CLINICAL OFFICER - 09/10/2011 11:24 AM CST Progress Note Created by: Alvina Case N.P. [id number] DATE: 09/07/2011 PRASANTH DELCID DATE OF : 1945 AGE: [age] years old Referring Physician: AVIVA GUZMAN Referring Clinic: [facility] CURRENT DIAGNOSES 1. 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; Place of - [place]; Hours Worked - 40 hours per week; [...] and asked her to record [facility] pressures at[facility] and to see her primary care physician [...] on filedocumented in this encounter Care Teams Net Software Engineer Relationship Specialty Start Date End Date Aviva Duggan MD [facility] [address] [place] [address] PCP - General Family Practice 12/18/10 06/18/14 Miles Martinez MD PCP - General 06/19/14 10/20/14 Jose Juarez MD [address] [phone] PCP - General Internal Medicine 10/21/14 12/07/16 Jerilyn Cervantes MD [facility] [address] [place] [address] PCP - General Family Practice 12/08/16 Jose Juarez MD [address] [phone] PCP - Assigned PCP 06/02/14 12/12/18 Jose Juarez MD [address] [place] [phone] Assigned PCP 09/01/14 01/20/19 documented as of this encounter
--- OUTSIDE RECORDS SUMMARY | 2024-11-25 09:07 | XMS_ITS | Encounter Summary ---
Author Organization [place] Address [address] [place] [address] Care Team Providers Care Acid Patroller Name Role Phone Aviva Duggan MD Primary Care Prov ider Miles Martinez MD Primary Care Provider Unavailabl e Jose Juarez MD Primary Care Provider [phone] Jerilyn Cervantes MD Primary Care Provider + Jose Juarez MD Unavailable [phone] Jose Juarez MD Unavailable [phone] Reason for Visit * Reason Comments Refill Request Encounter Details Date Type Department Care Team (Late st Contact Info) Description 06/22/[address] [address] Aviva Duggan MD [facility] [place] [address] Refill Request Social History Tobacco [...] on file 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 Gender Identity Not on file Sexual Orientation Not on file documented as of this encounter Plan of Treatment Not on file documented as of this encounter Visit Diagnoses Diagnosis Anxiety- Primary Anxiety state, unspecified documented in this encounter Care Teams Acid Patroller Relationship Specialty Start Date End Date Aviva Duggan MD [facility] [address] [place] [address] PCP - General Family Practice 12/18/10 06/18/14 Miles Martinez MD PCP - General 06/19/14 10/20/14 Jose Juarez MD [address] [place] [phone] PCP - General Internal Medicine 10/21/14 12/07/16 Jerilyn Cervantes MD [facility] & [address] [address] PCP - General Family Practice 12/08/16 Jose Juarez MD [address] [place] [phone] PCP - Assigned PCP 06/02/14 12/12/18 Jose Juarez MD [address] [place] [phone] Assigned PCP 09/01/14 01/20/19 documented as of this encounter
--- OUTSIDE RECORDS SUMMARY | 2024-11-25 09:07 | XMS_ITS | Encounter Summary ---
Author Organization [place] Address [address] [place] [address] Care Team Providers Care Filler And Trimmer Name Role Phone Aviva Duggan MD Primary Care Prov ider Miles Martinez MD Primary Care Provider Unavailabl e Jose Juarez MD Primary Care Provider Jerilyn Cervantes MD Primary Care Provider + Jose Juarez MD Unavailable [phone] Jose Juarez MD Unavailable [phone] Encounter Details Date Type Department Care Team (Late st Contact Info) Description 11/29/2013 Office Visit-[facility] [address] [phone] Isaac Cheatham MD Social History Tobacco Use [...] on file Legal Sex Female 3:27 AM LOG SCALER Gender Identity Not on file Sexual Orientation Not on file documented as of this encounter Progress Notes * Isaac Cheatham MD - 12/03/2013 4:01 PM CST Progress Note Created by: Isaac Cheatham M.D. DATE: 11/29/2013 PRASANTH DELCID DATE OF : 1945 AGE: [age] years old Referring Physician: AVIVA DUGGAN Referring Clinic: ([facility]) [facility] CURRENT DIAGNOSES 1. - Atrial Fibrillation, [...] She is a 68-year-old white female from [place]. 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 Hill from December to February. Ifshnisreen has further recurrent atrial fibrillation, she may [...] on filedocumented in this encounter Care Teams Filler And Trimmer Relationship Specialty Start Date End Date Aviva Duggan MD [facility] [address] [place] [address] PCP - General Family Practice 12/18/10 06/18/14 Miles Martinez MD PCP - General 06/19/14 10/20/14 Jose Juarez MD [address] [place] [phone] PCP - General Internal Medicine 10/21/14 12/07/16 Jerilyn Cervantes MD [facility] & [address] [phone] PCP - General Family Practice 12/08/16 Jose Juarez MD [address] [place] [phone] PCP - Assigned PCP 06/02/14 12/12/18 Jose Juarez MD [address] [place] [phone] Assigned PCP 09/01/14 01/20/19 documented as of this encounter
--- OUTSIDE RECORDS SUMMARY | 2024-11-25 09:07 | XMS_ITS | Encounter Summary ---
Author Organization [place] Address [facility] [place] [address] Care Team Providers Care Clinical Product Manager Name Role Phone Aviva Duggan MD Primary Care Prov ider Miles Martinez MD Primary Care Provider Unavailabl e Jose Juarez MD Primary Care Provider [phone] Jerilyn Cervantes MD Primary Care Provider + Jose Juarez MD Unavailable [phone] Jose Juarez MD Unavailable [phone] Encounter Details Date Type Department Care Team (Late st Contact Info) Description 04/06/2013 Office Visit-[facility] [address] [place] [phone] Zeferino Hill MD [address] [facility] [address] [place], [place] [phone] Social History Tobacco Use Types Packs/Day Years Used Date Smoking Tobacco: Former Cigarettes 0.2 5 0 01/15/1976 - 01/14/1981 Smokeless Tobacco: Never Alcohol Use Standard Drinks/Week Comments Yes 0 (1 standard drink = 0.6 oz pur e alcohol) occasional social only Comments No Sex and Gender Information Value Date Recorded Sex Assigned at Not on file Legal Sex Female 3:27 AM COW TRIMMER Gender Identity Not on file Sexual Orientation Not on file documented as of this encounter Progress Notes * Zeferino Hill MD - 04/10/2013 3:28 PM CDT Progress Note Created by: Zeferino Hill M.D. [id number] DATE: 04/06/2013 PRASANTH DELCID DATE OF : 1945 AGE: [age] years old Referring Physician: AVIVA GUZMAN Referring Clinic: [facility] CURRENT DIAGNOSES 1. - Atrial Fibrillation, [...] Ms. Delcid is a 67-year-old female of [place] decent. I first saw her a few months ago for recurrent symptomatic atypical atrial fibrillation in the background of hypertension and normal LV function. At that time I recommended her to be on amiodarone given that she was going to spend a month in [place] for vacation along with [place]. I asked her to come back today to discuss keno terminal operator treatment andalso the fact that she wished [...] on filedocumented in this encounter Care Teams Clinical Product Manager Relationship Specialty Start Date End Date Aviva Duggan MD [facility] [address] [place] [address] PCP - General Family Practice 12/18/10 06/18/14 Miles Martinez MD PCP - General 06/19/14 10/20/14 Jose Juarez MD [address] [place] [phone] PCP - General Internal Medicine 10/21/14 12/07/16 Jerilyn Cervantes MD [facility] & [address] [address] PCP - General Family Practice 12/08/16 Jose Juarez MD [address] [place] [phone] PCP - Assigned PCP 06/02/14 12/12/18 Jose Juarez MD [address] [place] [phone] Assigned PCP 09/01/14 01/20/19 documented as of this encounter
--- OUTSIDE RECORDS SUMMARY | 2024-11-25 09:07 | XMS_ITS | Encounter Summary ---
Author Organization [place] Address [address] [place] [address] Care Team Providers Care Apparel Patternmaker Name Role Phone Aviva Duggan MD Primary Care Prov ider Miles Martinez MD Primary Care Provider Unavailabl e Jose Juarez MD Primary Care Provider Jerilyn Cervantes MD Primary Care Provider + Jose Juarez MD Unavailable [phone] Jose Juarez MD Unavailable [phone] Reason for Visit * Reason Comments Medication Refill Encounter Details Date Type Department Care Team (Late st Contact Info) Description 05/22/2014 Refill [facility] [address] [address] Aviva Duggan MD [facility] [place] [address] Medication Refill Social History Tobacco [...] on file 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 Gender Identity Not on file Sexual Orientation [...] hypercholesterolemia documented in this encounter Care Teams Apparel Patternmaker Relationship Specialty Start Date End Date Aviva Duggan MD [facility] [address] [place] [address] PCP - General Family Practice 12/18/10 06/18/14 Miles Martinez MD PCP - General 06/19/14 10/20/14 Jose Juarez MD [address] [place] [phone] PCP - General Internal Medicine 10/21/14 12/07/16 Jerilyn Cervantes MD [facility] & [address] [address] PCP - General Family Practice 12/08/16 Jose Juarez MD [address] [place] [phone] PCP - Assigned PCP 06/02/14 12/12/18 Jose Juarez MD [address] [place] [phone] Assigned PCP 09/01/14 01/20/19 documented as of this encounter
--- OUTSIDE RECORDS SUMMARY | 2024-11-25 09:07 | XMS_ITS | Encounter Summary ---
Author Organization [place] Address [facility] [place] [address] Care Team Providers Care Drum Sander Offbearer Name Role Phone Aviva Duggan MD Primary Care Prov ider Miles Martinez MD Primary Care Provider Unavailabl e Jose Juarez MD Primary Care Provider [phone] Jerilyn Cervantes MD Primary Care Provider + Jose Juarez MD Unavailable [phone] Jose Juarez MD Unavailable [phone] Encounter Details Date Type Department Care Team (Late st Contact Info) Description 05/08/2013 Office Visit-[facility] [address] [place] [phone] Zeferino Hill MD [address] [facility] [address] [place], [place] [address] Social History Tobacco Use Types Packs/Day Years Used Date Smoking Tobacco: Former Cigarettes 0.2 5 0 01/15/1976 - 01/14/1981 Smokeless Tobacco: Never Alcohol Use Standard Drinks/Week Comments Yes 0 (1 standard drink = 0.6 oz pur e alcohol) occasional social only Comments No Sex and Gender Information Value Date Recorded Sex Assigned at Not on file 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 [id number] DATE: 05/08/2013 PRASANTH DELCID DATE OF : 1945 AGE: [age] years old Referring Physician: AVIVA SILVESTRE Referring Clinic: [facility] CURRENT DIAGNOSES 1. - Atrial Fibrillation, 427.31 [...] know, Prasanth is a 67-year-old female of [place] descent, very friendly but easily excitable, with a history of symptomatic paroxysmal atrial fibrillation in a background of hypertension and normal LV function. I started her on amiodarone initially as her first-line given that she is going to be away visiting her family in [place] for at least three months and I [...] on filedocumented in this encounter Care Teams Drum Sander Offbearer Relationship Specialty Start Date End Date Aviva Duggan MD [facility] [address] [place] [address] PCP - General Family Practice 12/18/10 06/18/14 Miles Martinez MD PCP - General 06/19/14 10/20/14 Jose Juarez MD [address] [place] [phone] PCP - General Internal Medicine 10/21/14 12/07/16 Jerilyn Cervantes MD [facility] & [address] [address] PCP - General Family Practice 12/08/16 Jose Juarez MD [address] [place] [phone] PCP - Assigned PCP 06/02/14 12/12/18 Jose Juarez MD [address] [place] [phone] Assigned PCP 09/01/14 01/20/19 documented as of this encounter
--- OUTSIDE RECORDS SUMMARY | 2024-11-25 09:07 | XMS_ITS | Encounter Summary ---
Author Organization [place] Address [address] [place] [address] Care Team Providers Care Computer Video Game Designer Name Role Phone Aviva Duggan MD Primary Care Prov ider Miles Martinez MD Primary Care Provider Unavailabl e Jose Juarez MD Primary Care Provider [phone] Jerilyn Cervantes MD Primary Care Provider + Jose Juarez MD Unavailable [phone] Jose Juarez MD Unavailable [phone] Reason for Visit * Reason Comments Refill Request Encounter Details Date Type Department Care Team (Late st Contact Info) Description 04/13/[address] [address] Aviva Duggan MD [facility] [place] [address] Refill Request Social History Tobacco [...] on file 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 Gender Identity Not on file Sexual Orientation Not on file documented as of this encounter Plan of Treatment Not on file documented as of this encounter Visit Diagnoses Diagnosis Depression- Primary Depressive disorder, not elsewhere classified documented in this encounter Care Teams Computer Video Game Designer Relationship Specialty Start Date End Date Aviva Duggan MD [facility] [address] [place] [address] PCP - General Family Practice 12/18/10 06/18/14 Miles Martinez MD PCP - General 06/19/14 10/20/14 Jose Juarez MD [address] [place] [phone] PCP - General Internal Medicine 10/21/14 12/07/16 eJrilyn Cervantes MD [facility] & [address] [address] PCP - General Family Practice 12/08/16 Jose Juarez MD [address] [place] [phone] PCP - Assigned PCP 06/02/14 12/12/18 Jose Juarez MD [address] [place] [address] [phone] Assigned PCP 09/01/14 01/20/19 documented as of this encounter
--- OUTSIDE RECORDS SUMMARY | 2024-11-25 09:07 | XMS_ITS | Encounter Summary ---
Author Organization [place] Address [address] [place] [address] Care Team Providers Care Crepe Sole Scourer Name Role Phone Aviva Duggan MD Primary Care Prov ider Miles Martinez MD Primary Care Provider Unavailabl e Jose Juarez MD Primary Care Provider Jerilyn Cervantes MD Primary Care Provider + Jose Juarez MD Unavailable [phone] Jose Juarez MD Unavailable [phone] Reason for Visit * Reason Comments Refill Request Encounter Details Date Type Department Care Team (Late st Contact Info) Description 07/10/[address] [address] Aviva Duggan MD [facility] [address] [place] [address] Refill Request Social History Tobacco [...] on file Legal Sex Female 3:27 AM SENIOR 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 DEVELOPER Gender Identity Not on file Sexual Orientation Not on file documented as of this encounter Plan of Treatment Not on file documented as of this encounter Visit Diagnoses Diagnosis Depression- Primary Depressive disorder, not elsewhere classified documented in this encounter Care Teams Crepe Sole Scourer Relationship Specialty Start Date End Date Aviva Duggan MD [facility] [address] [place] [address] PCP - General Family Practice 12/18/10 06/18/14 Miles Martinez MD PCP - General 06/19/14 10/20/14 Jose Juarez MD [address] [place] [phone] PCP - General Internal Medicine 10/21/14 12/07/16 Jerilyn Cervantes MD [facility] & [address] [address] PCP - General Family Practice 12/08/16 Jose Juarez MD [address] [place] [phone] PCP - Assigned PCP 06/02/14 12/12/18 Jose Juarez MD [address] [place] [phone] Assigned PCP 09/01/14 01/20/19 documented as of this encounter
--- OUTSIDE RECORDS SUMMARY | 2024-11-25 09:07 | XMS_ITS | Encounter Summary ---
Author Organization [place] Address [address] [place] [address] Care Team Providers Care Inclusion Manager Name Role Phone Jose Juarez MD Primary Care Provider [phone] Jerilyn Cervantes MD Primary Care Provider + Jose Juarez MD Unavailable [phone] Jose Juarez MD Unavailable [phone] Reason for Visit * Reason Comments Medication Refill Encounter Details Date Type Department Care Team (Late st Contact Info) Description 04/02/2015 Refill [facility] [address] [place] [phone] Aviva Duggan MD [facility] [place], [place] [phone] Medication Refill Social History Tobacco Use Types Packs/Day Years Used Date Smoking Tobacco: Former Cigarettes 0.2 5 0 01/15/1976 - 01/14/1981 Smokeless Tobacco: Never Alcohol Use Standard Drinks/Week Comments No 0 (1 standard drink = 0.6 oz pur e alcohol) occasional social only Comments No Sex and Gender Information Value Date Recorded Sex Assigned at Not on file Legal Sex Female 3:27 AM MID LEVEL JAVA DEVELOPER Gender Identity Not on file Sexual Orientation Not on file documented as of this encounter Plan of Treatment Not on file documented as of this encounter Visit Diagnoses Diagnosis Anxiety- Primary Anxiety state, unspecified documented in this encounter Care Teams Inclusion Manager Relationship Specialty Start Date End Date Jose Juarez MD [address] [place] [phone] PCP - General Internal Medicine 10/21/14 12/07/16 Jerilyn Cervantes MD [facility] & [address] [address] PCP - General Family Practice 12/08/16 oJse Juarez MD [address] [place] [phone] PCP - Assigned PCP 06/02/14 12/12/18 Jose Juarez MD [address] [place] [phone] Assigned PCP 09/01/14 01/20/19 documented as of this encounter
--- OUTSIDE RECORDS SUMMARY | 2024-11-25 09:07 | XMS_ITS | Encounter Summary ---
Author Organization [place] Address [facility]0 [facility] [place] [address] Care Team Providers Care Machine Technician Name Role Phone Aviva Duggan MD Primary Care Prov ider DoctorMiles MD Primary Care Provider Unavailabl e Jose Juarez MD Primary Care Provider Jerilyn Cervantes MD Primary Care Provider + Jose Juarez MD Unavailable [phone] Jose Juarez MD Unavailable [phone] Encounter Details Date Type Department Care Team (Late st Contact Info) Description 12/07/2012 Office Visit-[facility] [address] [place] [address] Raza Tomlin MD [address] [facility] [address] [place] [address] Social History Tobacco Use Types Packs/Day Years Used Date Smoking Tobacco: Former Cigarettes 0.2 5 0 01/15/1976 - 01/14/1981 Smokeless Tobacco: Never Alcohol Use Standard Drinks/Week Comments Yes 0 (1 standard drink = 0.6 oz pur e alcohol) occasional social only Comments No Sex and Gender Information Value Date Recorded Sex Assigned at Not on file Legal Sex Female 3:27 AM TOUCHER UP Gender Identity Not on file Sexual Orientation Not on file documented as of this encounter Progress Notes * Raza Tomlin MD - 12/08/2012 3:19 PM CST Progress Note Created by: Raza Tomlin M.D. DATE: 12/07/2012 PRASANTH DELCID DATE OF : 1945 AGE: [age] years old Referring Physician: AVIVA GUZMAN Referring Clinic: [facility] CURRENT DIAGNOSES 1. - Bradycardia, 427.89 2. [...] Mr. Delcid is a delightful 67-year-old female [place] immigrantwho has been to urgent care and [...] for a trip to go back to [place] February 22 of this year. 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 Thank you for this referral. [place] do not hesitate to call me with any questions or concerns. TODAYS ORDERS 1. 12 Lead EKG Today 2. Sleep Study Schedule At [facility] 3. 2D, color flow, doppler 1 week 4. F/U with Janene Mcgill P.AAmado 7-14 days 5. BMP Today 6. TSH Today Raza Tomlin M.D. documented in this encounter Plan of Treatment Not on file documented as of this encounter Visit Diagnoses Not on filedocumented in this encounter Care Teams Machine Technician Relationship Specialty Start Date End Date Aviva Duggan MD [facility] [address] [place] [address] PCP - General Family Practice 12/18/10 06/18/14 Miles Martinez MD PCP - General 06/19/14 10/20/14 Jose Juarez MD [address] [place] [phone] PCP - General Internal Medicine 10/21/14 12/07/16 Jerilyn Cervantes MD [facility] & [address] [address] PCP - General Family Practice 12/08/16 Jose Juarez MD [address] [place] [phone] PCP - Assigned PCP 06/02/14 12/12/18 Jose Juarez MD [address] [place] [phone] Assigned PCP 09/01/14 01/20/19 documented as of this encounter
--- OUTSIDE RECORDS SUMMARY | 2024-11-25 09:07 | XMS_ITS | Encounter Summary ---
Author Organization [place] Address [facility] [place] [address] Care Team Providers Care Rubber Goods Supervisor Name Role Phone Aviva Duggan MD Primary Care Prov ider DoctorMiles MD Primary Care Provider Unavailabl e Jose Juarez MD Primary Care Provider Jerilyn Cervantes MD Primary Care Provider + Jose Juarez MD Unavailable [phone] Jose Juarez MD Unavailable [phone] Encounter Details Date Type Department Care Team (Late st Contact Info) Description 12/17/2013 Office Visit-[facility] [address] [place] [address] Raza Tomlin MD [address] [facility] [address] [place] [address] Social History Tobacco Use Types Packs/Day Years Used Date Smoking Tobacco: Former Cigarettes 0.2 5 0 01/15/1976 - 01/14/1981 Smokeless Tobacco: Never Alcohol Use Standard Drinks/Week Comments Yes 0 (1 standard drink = 0.6 oz pur e alcohol) occasional social only Comments No Sex and Gender Information Value Date Recorded Sex Assigned at Not on file Legal Sex Female 3:27 AM MANAGER NEONATAL Gender Identity Not on file Sexual Orientation Not on file documented as of this encounter Progress Notes * Raza Tomlin MD - 12/19/2013 11:19 AM CDT Progress Note Created by: Raza Tomlin M.D. DATE: 12/17/2013 PRASANTH DELCID DATE OF : 1945 AGE: [age] years old Referring Physician: AVIVA DUGGAN Referring Clinic: ([facility] CURRENT DIAGNOSES 1. 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 Delcid [...] me with any questions or concerns. <FONT COLOR=#[id number]><FONT POINT=10> TODAYS ORDERS 1. Return prn Raza Tomlin M.D. documented in this encounter Plan of Treatment Not on file documented as of this encounter Visit Diagnoses Not on filedocumented in this encounter Care Teams Rubber Goods Supervisor Relationship Specialty Start Date End Date Aviva Duggan MD [facility] [address] [place] [address] PCP - General Family Practice 12/18/10 06/18/14 Miles Martinez MD PCP - General 06/19/14 10/20/14 Jose Juarez MD [address] [place] [phone] PCP - General Internal Medicine 10/21/14 12/07/16 Jerilyn Cervantes MD [facility] & [address] [address] PCP - General Family Practice 12/08/16 Jose Juarez MD [address] [place] [phone] PCP - Assigned PCP 06/02/14 12/12/18 Jose Juarez MD [address] [place] [phone] Assigned PCP 09/01/14 01/20/19 documented as of this encounter
--- OUTSIDE RECORDS SUMMARY | 2024-11-25 09:07 | XMS_ITS | Encounter Summary ---
Author Organization [facility] Address [address] [place] [address] Care Team Providers Care Science Center Display Builder Name Role Phone Aviva Duggan MD Primary Care Prov ider Miles Martinez MD Primary Care Provider Unavailabl e Jose Juarez MD Primary Care Provider Jerilyn Cervantes MD Primary Care Provider + Jose Juarez MD Unavailable [phone] Jose Juarez MD Unavailable [phone] Encounter Details Date Type Department Care Team (Late st Contact Info) Description 12/14/2012 Office Visit-[facility] [address] [place] [phone] Janene Mcgill, JOSIAH CURATOR OF MANUSCRIPTS Social History Tobacco Use Types Packs/Day Years Used Date Smoking Tobacco: Former Cigarettes 0.2 5 0 01/15/1976 - 01/14/1981 Smokeless Tobacco: Never Alcohol Use Standard Drinks/Week Comments Yes 0 (1 standard drink = 0.6 oz pur e alcohol) occasional social only Comments No Sex and Gender Information Value Date Recorded Sex Assigned at Not on file Legal Sex Female 3:27 AM REGISTERED 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 N.P. DATE: 12/14/2012 PRASANTH DELCID DATE OF : 1945 AGE: [age] years old Referring Physician: AVIVA GUZMAN Referring Clinic: [facility] CURRENT DIAGNOSES 1. 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 Weight- 121.00 lbs. Height- 61 [...] on filedocumented in this encounter Care Teams Science Center Display Builder Relationship Specialty Start Date End Date Aviva Duggan MD [facility] [address] [place] [address] PCP - General Family Practice 12/18/10 06/18/14 Miles Martinez MD PCP - General 06/19/14 10/20/14 Jose Juarez MD [address] [phone] PCP - General Internal Medicine 10/21/14 12/07/16 Jerilyn Cervantes MD [facility] & [address] [address] PCP - General Family Practice 12/08/16 Jose Juarez MD [address] [place] [phone] PCP - Assigned PCP 06/02/14 12/12/18 Jose Juarez MD [address] [place] [phone] Assigned PCP 09/01/14 01/20/19 documented as of this encounter
--- OUTSIDE RECORDS SUMMARY | 2024-11-25 09:07 | XMS_ITS | Encounter Summary ---
Author Organization [place] Address [address] [place] [address] Care Team Providers Care Process Inspector Name Role Phone Aviva Duggan MD Primary Care Prov ider Miles Martinez MD Primary Care Provider Unavailabl e Jose Juarez MD Primary Care Provider [phone] Jerilyn Cervantes MD Primary Care Provider + Jose Juarez MD Unavailable [phone] Jose Juarez MD Unavailable [phone] Reason for Visit * Reason Comments Refill Request Encounter Details Date Type Department Care Team (Late st Contact Info) Description 04/07/[address] [address] Aviva Duggan MD [facility] [place] [address] Refill Request Social History Tobacco [...] on file Legal Sex Female 3:27 AM ELECTRON 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 Gender Identity Not on file Sexual Orientation Not on file documented as of this encounter Plan of Treatment Not on file documented as of this encounter Visit Diagnoses Diagnosis Anxiety- Primary Anxiety state, unspecified documented in this encounter Care Teams Process Inspector Relationship Specialty Start Date End Date Aviva Duggan MD [facility] [address] [place] [address] PCP - General Family Practice 12/18/10 06/18/14 Miles Martinez MD PCP - General 06/19/14 10/20/14 Jose Juarez MD [address] [place] [phone] PCP - General Internal Medicine 10/21/14 12/07/16 Jerilyn Cervantes MD [facility] & [address] [address] PCP - General Family Practice 12/08/16 Jose Juarez MD [address] [place] [phone] PCP - Assigned PCP 06/02/14 12/12/18 Jose Juarez MD [address] [place] [phone] Assigned PCP 09/01/14 01/20/19 documented as of this encounter
--- OUTSIDE RECORDS SUMMARY | 2024-11-25 09:07 | XMS_ITS | Encounter Summary ---
Author Organization [place] Address [address] [place] [address] Care Team Providers Care Bmet Name Role Phone Jose Juarez MD Primary Care Provider Jerilyn Cervantes MD Primary Care Provider + Jose Juarez MD Unavailable [phone] Jose Juarez MD Unavailable [phone] Reason for Visit * Reason Comments Medication Refill Encounter Details Date Type Department Care Team (Late st Contact Info) Description 11/26/2014 Refill [facility] [address] [place] [phone] 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 Gender Identity Not on file Sexual Orientation Not on file documented as of this encounter Plan of Treatment Not on file documented as of this encounter Visit Diagnoses Diagnosis Medication refill- Primary Issue of repeat prescriptions documented in this encounter Care Teams Bmet Relationship Specialty Start Date End Date Jose Juarez MD [address] [place] [phone] PCP - General Internal Medicine 10/21/14 12/07/16 Jerilyn Cervantes MD [facility] & [address] [address] PCP - General Family Practice 12/08/16 Jose Juarez MD [address] [place] [phone] PCP - Assigned PCP 06/02/14 12/12/18 Jose Juarez MD [address] [place] [phone] Assigned PCP 09/01/14 01/20/19 documented as of this encounter
--- OUTSIDE RECORDS SUMMARY | 2024-11-25 09:08 | XMS_ITS | Encounter Summary ---
Author Organization [place] Address [address] [place] [address] Care Team Providers Care Accounts Collector Name Role Phone Aviva Duggan MD Primary Care Prov ider Miles Martinez MD Primary Care Provider Unavailabl e Jose Juarez MD Primary Care Provider [phone] Jerilyn Cervantes MD Primary Care Provider + Jose Juarez MD Unavailable [phone] Jose Juarez MD Unavailable [phone] Reason for Visit * Reason Comments Medication Refill Encounter Details Date Type Department Care Team (Late st Contact Info) Description 10/11/2013 Refill [facility] [address] [address] Aviva Duggan MD [facility] [address] [place] [address] Medication Refill Social History Tobacco [...] on file Legal Sex Female 3:27 AM STUNT MAN Gender Identity Not on file Sexual Orientation Not on file documented as of this encounter Plan of Treatment Not on file documented as of this encounter Visit Diagnoses Diagnosis Anxiety- Primary Anxiety state, unspecified documented in this encounter Care Teams Accounts Collector Relationship Specialty Start Date End Date Aviva Duggan MD [facility] [address] [place] [address] PCP - General Family Practice 12/18/10 06/18/14 Miles Martinez MD PCP - General 06/19/14 10/20/14 Jose Juarez MD [address] [place] [phone] PCP - General Internal Medicine 10/21/14 12/07/16 Jerilyn Cervantes MD [facility] & [address] [address] PCP - General Family Practice 12/08/16 Jose Juarez MD [address] [place] [phone] PCP - Assigned PCP 06/02/14 12/12/18 Jose Juarez MD [address] [place] [phone] Assigned PCP 09/01/14 01/20/19 documented as of this encounter
--- OUTSIDE RECORDS SUMMARY | 2024-11-25 09:08 | XMS_ITS | Clinical Summary ---
Author Organization [facility] Address [place], [place] [address] Care Team Providers Care Cnc Programmer Name Role Phone Jerilyn Cervantes MD Primary Care Provider + Allergies Active Allergy Reactions Criticality Noted Date Comments Ciprofloxacin Hives 11/20/2010 Lisinopril Other - Describe In Comment Field 12/20/2011 Left arm went numb 12/17/2011 Metoprolol Other - Describe In Comment Field 12/10/2011 Left arm/torso numbness and tingling. Medications cholecalciferol (VITAMIN D) 2,000 unit capsule Take 1 capsule by mouth once daily. 0 2 Active calcium carbonate-vitam in D3, 600 mg-400 unit, (CALCIUM 600 + D) tablet Take 1 tablet by mouth 2 times daily with meals. 0 2 Active multivitamin (MVI) tablet Take 1 tablet by mouth once daily. 0 2 Active omega-3 fatty acids-vitamin E (FISH OIL) 1,000 mg Cap Take 2 capsules by mouth once daily. 0 2 Active metoprolol (LOPRESSOR) 25 mg tablet Take 1 tablet by mouth 2 times daily. 180 tablet 0 2 Active ALPRAZolam (XANAX) 0.5 mg tabletIndicatio ns:Arthritis of knee Take 1 tablet by mouth at bedtime if needed. 40 tablet 0 2 Active amoxicillin (AMOXIL) 500 mg tabletIndicatio ns:Arthritis of knee Take 4 tablets one half hour before dental procedure. 4 tablet 4 2 Active warfarin (Coumadin) 3 mg tablet Take 1 Tablet (3 mg) by mouth once daily. 0 3 Active propafenone (RYTHMOL) 225 mg tabletIndicatio ns:PAF (paroxysmal atrial fibrillation) (HC) Take 1 Tablet (225 mg) by mouth every 12 hours. Due for cardiology follow up in December 2023. Please call [phone] to schedule. 180 Tablet 3 Active amLODIPine (NORVASC) 2.5 mg tabletIndicatio ns:Hypertension Take 1 Tablet (2.5 mg) by mouth once daily. Due for cardiology follow up in December. Please call [phone] to schedule. 90 Tablet 4 Active Active Problems Problem Noted Date Diagnosed Date ACP (advance care planning) 12/21/2011 Overview (12/21/2011): Patient has identified Health Care Agent(s): Yes [...] FULL TREATMENT. Osteoporosis 12/10/2011 Anxiety state 12/10/2011 Overview (12/10/2011): Uses as needed xanax, mainly at night for sleep. HTN (hypertension) 12/10/2011 Overview (12/10/2011): Question white coat vs essential. Paresthesia with metoprolol Bradycardia/dizziness/palpitations 12/10/2011 Overview (12/13/2011): Had month long heart monitor(event recorder) which was essentially normal(sinus bradycardia with occasional sinus tachycardia during sleep hours and occassional PAC's) . Dizziness has since resolved. Saw a social staff worker from [place](Dr Mendez Jimenez) who recommended no further interventions. Heartburn 12/10/2011 Overview (12/10/2011): Intermittent episodes of reflux, mainly at night with certain foods. Controlled with as needed TUMS. Arthritis of knee 03/15/2011 Overview (12/10/2011): Pain in medial right knee a couple yrs ago. Progresssively worsening with ambulation. Has tried 2 injections with minimal relief. Uses acetaminophen for pain on occasion. Resolved Problems Problem Noted Date Diagnosed Date Resolved Date Anticoagulation monitoring, special range 12/23/2011 12/29/2011 Mild memory loss 12/10/2011 01/03/2012 Overview (12/10/2011): Mild forgetfullness, (12/10/11) 09/24 on cognitive screening test(missed points for repeating numbers backwards(2 points) and missed 2 words on recall(2 points). Encounters Date Type Department Care Team Description 09/21/[address] [place] [phone] David Meadows MD Refill Request from Last [...] Paying Living Expenses Not on file 10/05/2021 Comments No Sex and Gender Information Value Date Recorded Sex Assigned at Not on file Legal Sex Female 8:03 AM PATIENT ACCESS Gender Identity Not on file Sexual Orientation Not on file Obstetrics History Last Filed Vital Signs Vital Sign Reading Time Taken Comments Blood Pressure 142/80 11/07/2020 9:10 AM PATIENT ACCESS Pulse 55 11/07/2020 9:10 AM PATIENT ACCESS Temperature 36.7 C (98.1 F) 12/23/2011 8:05 AM CDT Respiratory Rate 16 11/07/2020 9:10 AM PATIENT ACCESS Oxygen Saturation 100% 12/23/2011 8:05 AM CDT Inhaled Oxygen Concentration - - Weight 67.6 kg (149 lb) 11/07/2020 9:10 AM PATIENT ACCESS Height 156.2 cm (5' 1.5) 03/15/2012 3:28 PM CDT Body Mass Index 27.7 03/15/2012 3:28 PM CDT Plan of Treatment Health Maintenance Due Date Last Done Comments Tdap 1955 Depression screening for age 12+ 1956 BMI (ht and wt on same day) for age 18+ 1962 Tetanus booster 1964 Pneumococcal series for age 50+ (1 of 1 - PCV) 1994 Zoster (shingles) series for age 50+ (1 of 2) 1994 DEXA/DXA scan for age 65+ 2009 Medicare Wellness for age 65+ 2009 RSV vaccine for adults or (1 - 1-dose 75+ series) 2019 COVID-19 vaccine series ( season) 2024 11/24/2023, 07/08/2022, 08/27/2021, Additional history exists Influenza for age 65+ 06/10/2024 Medical Devices Implanted Type Area Math Tutor Device Identifier Shelf Expiration Date Model / Serial / Lot Baseplate Tib Sz 4 Rt Andreina Ii - [id number] Implanted:Qty: 1 on 12/20/2011 at [facility] Ortho Total Joint Right: Knee [employer] [id number] / / [id number] Cmnt Bone Surg Simplex - [id number] Implanted:Qty: 1 on 12/20/2011 at [facility] Right: Knee [employer] [id number]# / / [id number] Cmnt 1/2 Dosehowmedica - [id number] Implanted:Qty: 1 on 12/20/2011 at [facility] Right: Knee [employer] [id number]# / / [id number] Compnt Fem P.S. Rt Sz [id number] - [id number] Implanted:Qty: 1 on 12/20/2011 at [facility] Right: Knee [employer] # / / [id number] Insert Legion Sz3-4 9mm Ps High Flex Xlpe - [id number] Implanted:Qty: 1 on 12/20/2011 at [facility] Right: Knee [employer] [id number] / / [id number] Patellar Component Implanted:Qty: 1 on 12/20/2011 at [facility] Right: Knee [id number] / / [id number] Description:PATELLAR COMPONE NT Insurance HU[employer]NA CHOICE PPO MR Advance Directives * Full Code (Latest Code Status on File) Date Activated Date Inactivated Comments 12/20/2011 1:06 PM 12/23/2011 5:33 PM * Full Code Date Activated Date Inactivated Comments 12/20/2011 5:13 AM 12/20/2011 1:06 PM Care Teams Cnc Programmer Relationship Specialty Start Date End Date Jerilyn Cervantes MD [address] [place] [address] PCP - General Family Practice 04/19/18
--- OUTSIDE RECORDS SUMMARY | 2024-11-25 09:08 | XMS_ITS | Clinical Summary ---
Author Organization [place] Address [facility] [place] [address] Care Team Providers Care Cushion Padder Name Role Phone Jerilyn Cervantes MD Primary Care Provider + Allergies Active Allergy Reactions Criticality Noted Date Comments Quinolones Itching 01/14/2011 Influenza Virus Vaccine Other (See Comments) 01/14/2011 Hospitalized as child Medications Calcium Carbonate-Vitami n D (CALCIUM 600 + D OR) Take 2 tablets by mouth daily. Active [place]-3 Fatty Acids (FISH OIL PO) Take 1 capsule by mouth daily. Active Acetaminophen 500 MG TBDP Take 500 mg by mouth as needed. 1-2 tablets. Active Cholecalciferol (VITAMIN D) 2000 UNIT CAPS Take 1 tablet by mouth daily. Active propafenone (RYTHMOL) 150 MG TABSIndications: New onset atrial fibrillation (H) Take 1 tablet (150 mg) by mouth 2 times daily 180 tablet 3 12/24/19 16 Active metoprolol (LOPRESSOR) 25 MG tabletIndication s:New onset atrial fibrillation (H) Take 0.5 tablets (12.5 mg) by mouth 2 times daily 90 tablet 3 12/24/19 16 Active sertraline (ZOLOFT) 25 MG tabletIndication s:Generalized anxiety disorder Take 2 tablets (50 mg) by mouth daily 180 tablet 3 03/02/20 16 Active atorvastatin (LIPITOR) 10 MG tabletIndication s:Hyperlipidemia LDL goal <130 Take 0.5 tablets (5 mg) by mouth daily 45 tablet 3 03/10/20 16 Active oxyCODONE (ROXICODONE) 5 MG immediate release tablet Take 0.5-1 tablets (2.5-5 mg) by mouth every 6 hours as needed for moderate to severe pain 20 tablet 0 05/17/20 16 Active omeprazole (PRILOSEC) 40 MG capsuleIndicatio ns:Gastroesophag eal reflux disease without esophagitis Take 1 capsule (40 mg) by mouth daily Take 30-60 minutes before a meal. 90 capsule 1 09/03/20 16 Active hydrochlorothiaz parrish (HYDRODIURIL) 25 MG tabletIndication s:Benign essential hypertension Take 1 tablet (25 mg) by mouth daily 30 tablet 0 09/03/20 16 Active lisinopril (PRINIVIL/ZESTRI L) 10 MG tablet Take 10 mg by mouth daily Active gabapentin (NEURONTIN) 300 MG capsule Take 300 mg by mouth 3 times daily Activ e warfarin (COUMADIN) 5 MG tabletIndication s:New onset atrial fibrillation (H) Take 1/2 tablet daily except one tablet on Mon/Fri as directed by the anticoagulation clinic, needs an appt For INR prior to having refills. 20 tablet 12/15/19 17 Active Active Problems Problem Noted Date Diagnosed Date Brain tumor 01/28/2016 Osteopenia 01/19/2016 Long-term (current) use of anticoagulants [Z79.0 1] 09/09/2015 Hyperlipidemia LDL goal <130 07/30/2014 Vertebral fracture 10/28/2013 New onset atrial fibrillation 12/28/2012 Benign essential hypertension 02/23/2012 Generalized anxiety disorder 08/04/2011 Overview (08/11/2015): Diagnosis updated by automated process. Provider to review and confirm. Palpitation 08/04/2011 Preventative health care 01/14/2011 OA (osteoarthritis) Overview (07/27/2011): Hands and right knee Resolved Problems Problem Noted Date Diagnosed Date Resolved Date NO SHOW 08/15/2013 03/05/2014 Health Senior Care 04/26/2013 03/26/2024 Overview (02/06/2014): State Tier Level: Tier 2 HTN, white coat 02/23/2012 Immunizations Name Administration [...] Answer Date Recorded PHQ-2 Score 0 10/17/2018 Comments No Sex and Gender Information Value Date Recorded Sex Assigned at Not on file Legal Sex Female 3:27 AM VENTURE CAPITALIST Gender Identity Not on file Sexual Orientation Not on file Last Filed Vital Signs Vital Sign Reading Time Taken Comments Blood Pressure 164/88 12/31/2018 7:40 PM CDT Educated pt on following up with PCP regarding HTN Pulse 57 12/31/2018 7:40 PM CDT Temperature 36.7 C (98 F) 12/31/2018 5:37 PM CDT Respiratory Rate 16 12/31/2018 8:05 PM CDT Oxygen Saturation 98% 12/31/2018 8:0 5 PM CDT Inhaled Oxygen Concentration - - Weight 62.8 kg (138 lb 6.4 oz) 12/08/2016 3:30 PM VENTURE CAPITALIST Height 157.5 cm (5' 2) 12/08/2016 3:30 PM VENTURE CAPITALIST Body Mass Index 25.31 12/08/2016 3:30 PM VENTURE CAPITALIST Plan of Treatment Not on file Insurance HUMANA MEDICARE ADVANTAGE [facility] Advance Directives For more information, please contact: [phone] * Full Code (Latest Code Status on File) Date Activated Date Inactivated Comments 11/01/2013 1:52 PM 12/31/2018 5:26 PM * Full Code Date Activated Date Inactivated Comments 10/28/2013 5:55 PM 11/01/2013 1:52 PM Care Teams Cushion Padder Relationship Specialty Start Date End Date Jerilyn Cervantes MD [facility] & [address] [address] PCP - General Family Practice 12/08/16
[2024-11-25 09:09] VITALS: BP 149/72; PULSE 114; RESP 18; TEMP 36.6; O2SAT 92; BMI 28.7
--- OUTSIDE RECORDS SUMMARY | 2024-11-25 09:37 | XMS_ITS | Encounter Summary ---
Author Organization [place] Address [facility] [place] [address] Care Team Providers Care Helpdesk Specialist Name Role Phone Aviva Duggan MD Primary Care Prov ider DoctorMiles MD Primary Care Provider Unavailabl e Jose Juarez MD Primary Care Provider Jerilyn Cervantes MD Primary Care Provider + Jose uJarez MD Unavailable [phone] Jose Juarez MD Unavailable [phone] Encounter Details Date Type Department Care Team (Late st Contact Info) Description 12/07/2012 Office Visit-[facility] [address] [place] [address] Raza Tomlin MD [address] [facility] [address] [place] [address] Social History Tobacco Use Types Packs/Day Years Used Date Smoking Tobacco: Former Cigarettes 0.2 5 0 01/15/1976 - 01/14/1981 Smokeless Tobacco: Never Alcohol Use Standard Drinks/Week Comments Yes 0 (1 standard drink = 0.6 oz pur e alcohol) occasional social only Comments No Sex and Gender Information Value Date Recorded Sex Assigned at Not on file Legal Sex Female 3:27 AM 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 - Bradycardia, 427.89 2. [...] Mr. Delcid is a delightful 67-year-old female [place] immigrantwho has been to urgent care and [...] for a trip to go back to [place] February 22 of this year. 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 Thank you for this referral. [place] do not hesitate to call me with any questions or concerns. TODAYS ORDERS 1. 12 Lead EKG Today 2. Sleep Study Schedule At [facility] 3. 2D, color flow, doppler 1 week 4. F/U with Janene Mcgill P.AAmado 7-14 days 5. BMP Today 6. TSH Today Raza Tomlin M.D. documented in this encounter Plan of Treatment Not on file documented as of this encounter Visit Diagnoses Not on filedocumented in this encounter Care Teams Helpdesk Specialist Relationship Specialty Start Date End Date Aviva Duggan MD [facility] [address] [place] [address] PCP - General Family Practice 12/18/10 06/18/14 Miles Martinez MD PCP - General 06/19/14 10/20/14 Jose Juarez MD [address] [place] [phone] PCP - General Internal Medicine 10/21/14 12/07/16 Jerilyn Cervantes MD [facility] & [address] [address] PCP - General Family Practice 12/08/16 Jose Juarez MD [address] [place] [phone] PCP - Assigned PCP 06/02/14 12/12/18 Jose Juarez MD [address] [place] [phone] Assigned PCP 09/01/14 01/20/19 documented as of this encounter
--- OUTSIDE RECORDS SUMMARY | 2024-11-25 09:37 | XMS_ITS | Encounter Summary ---
Author Organization [place] Address [address] [place] [address] Care Team Providers Care Engineer Automated Equipment Name Role Phone Jose Juarez MD Primary Care Provider Jerilyn Cervantes MD Primary Care Provider + Jose Juarez MD Unavailable [phone] Jose Juarez MD Unavailable [phone] Reason for Visit * Reason Comments Medication Refill Encounter Details Date Type Department Care Team (Late st Contact Info) Description 04/02/2015 Refill [facility] [address] [place] [address] Aviva Duggan MD [facility] [place], [place] [phone] Medication Refill Social History Tobacco Use Types Packs/Day Years Used Date Smoking Tobacco: Former Cigarettes 0.2 5 0 01/15/1976 - 01/14/1981 Smokeless Tobacco: Never Alcohol Use Standard Drinks/Week Comments No 0 (1 standard drink = 0.6 oz pur e alcohol) occasional social only Comments No Sex and Gender Information Value Date Recorded Sex Assigned at Not on file 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 Gender Identity Not on file Sexual Orientation Not on file documented as of this encounter Plan of Treatment Not on file documented as of this encounter Visit Diagnoses Diagnosis Anxiety- Primary Anxiety state, unspecified documented in this encounter Care Teams Engineer Automated Equipment Relationship Specialty Start Date End Date Jose Juarez MD [address] [place] [phone] PCP - General Internal Medicine 10/21/14 12/07/16 Jerilyn Cervantes MD [facility] & [address] [address] PCP - General Family Practice 12/08/16 Jose Juarez MD [address] [place] [phone] PCP - Assigned PCP 06/02/14 12/12/18 Jose Juarez MD [address] [place] [phone] Assigned PCP 09/01/14 01/20/19 documented as of this encounter
--- OUTSIDE RECORDS SUMMARY | 2024-11-25 09:37 | XMS_ITS | Encounter Summary ---
Author Organization [place] Address [address] [place] [address] Care Team Providers Care Food Mixer Name Role Phone Aviva Duggan MD Primary Care Prov ider Miles Martinez MD Primary Care Provider Unavailabl e Jose Jaurez MD Primary Care Provider [phone] Jerilyn Cervantes MD Primary Care Provider + Jose Juarez MD Unavailable [phone] Jose Juarez MD Unavailable [phone] Reason for Visit * Reason Comments Refill Request Encounter Details Date Type Department Care Team (Late st Contact Info) Description 07/17/[address] [address] Aviva Duggan MD [facility] [place] [address] Refill Request Social History Tobacco [...] on file Legal Sex Female 3:27 AM PRODUCT 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 Gender Identity Not on file Sexual Orientation Not on file documented as of this encounter Plan of Treatment Not on file documented as of this encounter Visit Diagnoses Diagnosis Adjustment disorder with mixed anxiety and depressed mood- Primary documented in this encounter Care Teams Food Mixer Relationship Specialty Start Date End Date Aviva Duggan MD [facility] [address] [place] [address] PCP - General Family Practice 12/18/10 06/18/14 Miles Martinez MD PCP - General 06/19/14 10/20/14 Jose Juarez MD [address] [place] [phone] PCP - General Internal Medicine 10/21/14 12/07/16 Jerilyn Cervantes MD [facility] & [address] [address] PCP - General Family Practice 12/08/16 Jose Juarez MD [address] [place] [phone] PCP - Assigned PCP 06/02/14 12/12/18 Jose Juarez MD [address] [place] [phone] Assigned PCP 09/01/14 01/20/19 documented as of this encounter
--- OUTSIDE RECORDS SUMMARY | 2024-11-25 09:37 | XMS_ITS | Encounter Summary ---
Author Organization [place] Address [address] [place] [address] Care Team Providers Care Cloth Seconds Sorter Name Role Phone Aviva Duggan MD Primary Care Prov ider Miles Martinez MD Primary Care Provider Unavailabl e Jose Juarez MD Primary Care Provider Jerilyn Cervantes MD Primary Care Provider + Jose Juarez MD Unavailable [phone] Jose Juarez MD Unavailable [phone] Reason for Visit * Reason Comments Refill Request Encounter Details Date Type Department Care Team (Late st Contact Info) Description 06/22/[address] [address] Aviva Duggan MD [facility] [place] [address] Refill Request Social History Tobacco [...] on file Legal Sex Female 3:27 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 Gender Identity Not on file Sexual Orientation Not on file documented as of this encounter Plan of Treatment Not on file documented as of this encounter Visit Diagnoses Diagnosis Anxiety- Primary Anxiety state, unspecified documented in this encounter Care Teams Cloth Seconds Sorter Relationship Specialty Start Date End Date Aviva Duggan MD [facility] [address] [place] [address] PCP - General Family Practice 12/18/10 06/18/14 Miles Martinez MD PCP - General 06/19/14 10/20/14 Jose Juarez MD [address] [place] [phone] PCP - General Internal Medicine 10/21/14 12/07/16 Jerilyn Cervantes MD [facility] & [address] [address] PCP - General Family Practice 12/08/16 Jose Juarez MD [address] [place] [phone] PCP - Assigned PCP 06/02/14 12/12/18 Jose Juarez MD [address] [place] [phone] Assigned PCP 09/01/14 01/20/19 documented as of this encounter
--- OUTSIDE RECORDS SUMMARY | 2024-11-25 09:37 | XMS_ITS | Encounter Summary ---
Author Organization [place] Address [address] [place] [address] Care Team Providers Care Site Reliability Engineer Name Role Phone Jose Juarez MD Primary Care Provider Jerilyn Cervantes MD Primary Care Provider + Jose Juarez MD Unavailable [phone] Jose Juarez MD Unavailable [phone] Reason for Visit * Reason Onset Date Comments Erroneous encounter-disregard 08/26/2015 op ened by mistake Encounter Details Date Type Department Care Team (Late st Contact Info) Description 08/26/2015 [facility] [address] [place] [address] Aviva Duggan MD [facility] [address] [place] [address] Erroneous encounter-disregard (opened by mistake) [...] on file Legal Sex Female 3:27 AM DESPATCHING AND RECEIVING 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 Gender Identity Not on file Sexual Orientation Not on file documented as of this encounter Miscellaneous Notes * Telephone Encounter - Lakeisha Hernández - 08/26/2015 1:09 PM CST Last OV 05/24/14 ATCHING AND RECEIVING CLERK documented in this encounter Plan of Treatment Not on file documented as of this encounter Visit Diagnoses Not on filedocumented in this encounter Care Teams Site Reliability Engineer Relationship Specialty Start Date End Date Jose Juarez MD [address] [place] [phone] PCP - General Internal Medicine 10/21/14 12/07/16 Jerilyn Cervantes MD [facility] & [address] [address] PCP - General Family Practice 12/08/16 Jose Juarez MD [address] [place] [phone] PCP - Assigned PCP 06/02/14 12/12/18 Jose Juarez MD [address] [place] [phone] Assigned PCP 09/01/14 01/20/19 documented as of this encounter
--- OUTSIDE RECORDS SUMMARY | 2024-11-25 09:37 | XMS_ITS | Encounter Summary ---
Author Organization [facility] Address [address] [place] [address] Care Team Providers Care Field Crop I Farmworker Name Role Phone Aviva Duggan MD Primary Care Prov ider Miles Martinez MD Primary Care Provider Unavailabl e Jose Juarez MD Primary Care Provider [phone] Jerilyn Cervantes MD Primary Care Provider + Jose Juarez MD Unavailable [phone] Jose Juarez MD Unavailable [phone] Encounter Details Date Type Department Care Team (Late st Contact Info) Description 12/14/2012 Office Visit-[facility] [address] [place] [phone] Janene Mcgill, JOSIAH ASSEMBLY REPAIRER Social History Tobacco Use Types Packs/Day Years Used Date Smoking Tobacco: Former Cigarettes 0.2 5 0 01/15/1976 - 01/14/1981 Smokeless Tobacco: Never Alcohol Use Standard Drinks/Week Comments Yes 0 (1 standard drink = 0.6 oz pur e alcohol) occasional social only Comments No Sex and Gender Information Value Date Recorded Sex Assigned at Not on file Legal Sex Female 3:27 AM FEED GRINDER Gender Identity Not on file Sexual Orientation Not on file documented as of this encounter Progress Notes * Janene Mcgill, TAFE TEACHER - 12/14/2012 3:05 PM CST Progress Note Created by: Janene Mcgill. N.P. DATE: 12/14/2012 PRASANTH DELCID DATE OF : 1945 AGE: [age] years old Referring Physician: AVIVA GUZMAN Referring Clinic: [facility] CURRENT DIAGNOSES 1. 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[employer], [employer]; Residence - lives alone; Place of - [place]; Hours Worked - 20 hours per week; [...] SIGNS: Blood Pressure: 140/78 130/76 Retaken by TAFE TEACHER/PA Pulse- 60.00/min. Weight- 121.00 lbs. Height- 61 [...] on filedocumented in this encounter Care Teams Field Crop I Farmworker Relationship Specialty Start Date End Date Aviva Duggan MD [facility] [address] [place] [address] PCP - General Family Practice 12/18/10 06/18/14 Miles Martinez MD PCP - General 06/19/14 10/20/14 Jose Juarez MD [address] [phone] PCP - General Internal Medicine 10/21/14 12/07/16 Jerilyn Cervantes MD [facility] & [address] [address] PCP - General Family Practice 12/08/16 Jose Juarez MD [address] [place] [phone] PCP - Assigned PCP 06/02/14 12/12/18 Jose Juarez MD [address] [place] [phone] Assigned PCP 09/01/14 01/20/19 documented as of this encounter
--- OUTSIDE RECORDS SUMMARY | 2024-11-25 09:37 | XMS_ITS | Encounter Summary ---
Author Organization [place] Address [address] [place] [address] Care Team Providers Care Kier Tender Name Role Phone Aviva Duggan MD Primary Care Prov ider Miles Martinez MD Primary Care Provider Unavailabl e Jose Juarez MD Primary Care Provider [phone] Jerilyn Cervantes MD Primary Care Provider + Jose Juarez MD Unavailable [phone] Jose Juarez MD Unavailable [phone] Reason for Visit * Reason Comments Medication Refill Encounter Details Date Type Department Care Team (Late st Contact Info) Description 09/09/2013 [facility]ill [facility] [address] [address] Aviva Duggan MD [facility] [place] [address] Medication Refill Social History Tobacco [...] on file Legal Sex Female 3:27 AM SUPERVISOR WATER SOFTENER SERVICE Gender Identity Not on file Sexual Orientation Not on file documented as of this encounter Miscellaneous Notes * Telephone Encounter - Jamila Cotton - 09/11/2013 11:33 AM CST Last seen-05/11/13 RVISOR WATER SOFTENER SERVICE documented in this encounter Plan of Treatment Not on file documented as of this encounter Visit Diagnoses Diagnosis HTN (hypertension)- Primary Unspecified essential hypertension documented in this encounter Care Teams Kier Tender Relationship Specialty Start Date End Date Aviva Duggan MD [facility] [address] [place] [address] PCP - General Family Practice 12/18/10 06/18/14 Miles Martinez MD PCP - General 06/19/14 10/20/14 Jose Juarez MD [address] [place] [phone] PCP - General Internal Medicine 10/21/14 12/07/16 Jerilyn Cervantes MD [facility] & [address] [address] PCP - General Family Practice 12/08/16 Jose Juarez MD [address] [place] [phone] PCP - Assigned PCP 06/02/14 12/12/18 Jose Juarez MD [address] [place] [phone] Assigned PCP 09/01/14 01/20/19 documented as of this encounter
--- OUTSIDE RECORDS SUMMARY | 2024-11-25 09:37 | XMS_ITS | Encounter Summary ---
Author Organization [place] Address [facility] [place] [address] Care Team Providers Care Conference Service Coordinator Name Role Phone Aviva Duggan MD Primary Care Prov ider Miles Martinez MD Primary Care Provider Unavailabl e Jose Juarez MD Primary Care Provider [phone] Jerilyn Cervantes MD Primary Care Provider + Jose Juarez MD Unavailable [phone] Jose Juarez MD Unavailable [phone] Encounter Details Date Type Department Care Team (Late st Contact Info) Description 07/02/2013 Office Visit-[facility] [address] [place] [phone] Zeferino Hill MD [address] [facility] [address] [place], [place] [phone] Social History Tobacco Use Types Packs/Day Years Used Date Smoking Tobacco: Former Cigarettes 0.2 5 0 01/15/1976 - 01/14/1981 Smokeless Tobacco: Never Alcohol Use Standard Drinks/Week Comments Yes 0 (1 standard drink = 0.6 oz pur e alcohol) occasional social only Comments No Sex and Gender Information Value Date Recorded Sex Assigned at Not on file Legal 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 [id number] DATE: 07/02/2013 PRASANTH DELCID DATE OF : 1945 AGE: [age] years old Referring Physician: AVIVA SILVESTRE Referring Clinic: ([facility]) [facility] CURRENT DIAGNOSES 1. - Atrial Fibrillation, [...] know, Prasanth is a 67-year-old female of Romansh descent who is very friendly but very easily excitable witha history of symptomatic paroxysmal atrial fibrillation in the background of hypertension and preserved LV function. Initially when I first met her I had her on amiodarone for short-term given that she was going to go on an extensive vacation in [place] and therefore I wanted to minimize her [...] stopped the flecainide she should contact her healthcare analyst for further evaluation. The patient will continue [...] on filedocumented in this encounter Care Teams Conference Service Coordinator Relationship Specialty Start Date End Date Aviva Duggan MD [facility] [address] [place] [address] PCP - General Family Practice 12/18/10 06/18/14 Miles Martinez MD PCP - General 06/19/14 10/20/14 Jose Juarez MD [address] [place] [phone] PCP - General Internal Medicine 10/21/14 12/07/16 Jerilyn Cervantes MD [facility] & [address] [address] PCP - General Family Practice 12/08/16 Jose Juarez MD [address] [place] [phone] PCP - Assigned PCP 06/02/14 12/12/18 Jose Juarez MD [address] [place] [phone] Assigned PCP 09/01/14 01/20/19 documented as of this encounter
--- OUTSIDE RECORDS SUMMARY | 2024-11-25 09:37 | XMS_ITS | Encounter Summary ---
Author Organization [place] Address [address] [place] [address] Care Team Providers Care Camelid Fiber Sorter Name Role Phone Aviva Duggan MD Primary Care Prov ider Miles Martinez MD Primary Care Provider Unavailabl e Jose Juarez MD Primary Care Provider Jerilyn Cervantes MD Primary Care Provider + Jose Juarez MD Unavailable [phone] Jose Juarez MD Unavailable [phone] Reason for Visit * Reason Comments Medication Refill Encounter Details Date Type Department Care Team (Late st Contact Info) Description 05/22/2014 Refill [facility] [address] [address] Aviva Duggan MD [facility] [place] [address] Medication Refill Social History Tobacco [...] on file Legal Sex Female 3:27 AM 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 & [address] [address] PCP - General Family Practice 12/08/16 Jose Juarez MD [address] [place] [phone] PCP - Assigned PCP 06/02/14 12/12/18 Jose Juarez MD [address] [place] [phone] Assigned PCP 09/01/14 01/20/19 documented as of this encounter
--- OUTSIDE RECORDS SUMMARY | 2024-11-25 09:37 | XMS_ITS | Encounter Summary ---
Author Organization [facility] Address [address] [place] [address] Care Team Providers Care Automatic Hemmer Name Role Phone Jose Juarez MD Primary Care Provider Jerilyn Cervantes MD Primary Care Provider + Jose Juarez MD Unavailable [phone] Jose Juarez MD Unavailable [phone] Reason for Visit * Reason Comments Medication Refill Encounter Details Date Type Department Care Team (Late st Contact Info) Description 11/26/2014 Refill [facility] [address] [place] [address] Aviva Duggan MD [facility] [place], [place] [phone] Medication Refill Social History Tobacco Use Types [...] file Legal Sex Female 3:27 AM INDUSTRIAL MAINTENANCE REPAIRER HELPER Gender Identity Not on file Sexual Orientation Not on file documented as of this encounter Plan of Treatment Not on file documented as of this encounter Visit Diagnoses Diagnosis Medication refill- Primary Issue of repeat prescriptions documented in this encounter Care Teams Automatic Hemmer Relationship Specialty Start Date End Date Jose Juarez MD [address] [place] [phone] PCP - General Internal Medicine 10/21/14 12/07/16 Jerilyn Cervantes MD [facility] & [address] [address] PCP - General Family Practice 12/08/16 Jose Juarez MD [address] [place] [phone] PCP - Assigned PCP 06/02/14 12/12/18 Jose Juarez MD [address] [place] [phone] Assigned PCP 09/01/14 01/20/19 documented as of this encounter
--- OUTSIDE RECORDS SUMMARY | 2024-11-25 09:37 | XMS_ITS | Encounter Summary ---
Author Organization [place] Address formerly [facility] [place] [address] Care Team Providers Care Dock Operator Name Role Phone Aviva Duggan MD Primary Care Prov ider DoctorMiles MD Primary Care Provider Unavailabl e Jose Juarez MD Primary Care Provider [phone] Jerilyn Cervantes MD Primary Care Provider + Jose Juarez MD Unavailable [phone] Jose Juarez MD Unavailable [phone] Encounter Details Date Type Department Care Team (Late st Contact Info) Description 08/03/2011 Office Visit-[facility] [address] [place] [address] Mendez Jimenez MD XXX XXX [phone] [facility] [address] [place], [place] [id number] Social History Tobacco Use Types Packs/Day Years Used Date Smoking Tobacco: Former Cigarettes 0.2 5 0 01/15/1976 - 01/14/1981 Smokeless Tobacco: Never Alcohol Use Standard Drinks/Week Comments Yes 0 (1 standard drink = 0.6 oz pur e alcohol) occasional social only Comments No Sex and Gender Information Value Date Recorded Sex Assigned at Not on file Legal Sex Female 3:27 AM HYDRO PNEUMATIC TESTER Gender Identity Not on file Sexual Orientation Not on file documented as of this encounter Progress Notes * Mendez Jimenez MD - 08/13/2011 1:40 PM CDT Progress Note Created by: Mendez Jimenez M.D. DATE: 08/03/2011 PRASANTH DELCID DATE OF : 1945 AGE: [age] years old Referring Physician: AVIVA GUZMAN Referring Clinic: [facility] CURRENT DIAGNOSES 1. 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[employer], [place]; Place of - [place]; Hours Worked - 40 hours per week; [...] on filedocumented in this encounter Care Teams Dock Operator Relationship Specialty Start Date End Date Aviva Duggan MD [facility] [address] [place] [address] PCP - General Family Practice 12/18/10 06/18/14 Miles Martinez MD PCP - General 06/19/14 10/20/14 Jose Juarez MD [address] [place] [phone] PCP - General Internal Medicine 10/21/14 12/07/16 Jerilyn Cervantes MD [facility] & [address] [address] PCP - General Family Practice 12/08/16 Jose Juarez MD [address] [place] [phone] PCP - Assigned PCP 06/02/14 12/12/18 Jose Juarez MD [address] [place] [phone] Assigned PCP 09/01/14 01/20/19 documented as of this encounter
--- OUTSIDE RECORDS SUMMARY | 2024-11-25 09:37 | XMS_ITS | Encounter Summary ---
Author Organization [place] Address [facility] [place] [address] Care Team Providers Care Merchant Seaman Name Role Phone Aviva Duggan MD Primary Care Prov ider Miles Martinez MD Primary Care Provider Unavailabl e Jose Juarez MD Primary Care Provider [phone] Jerilyn Cervantes MD Primary Care Provider + Jose Juarez MD Unavailable [phone] Jose Juarez MD Unavailable [phone] Encounter Details Date Type Department Care Team (Late st Contact Info) Description 05/08/2013 Office Visit-[facility] [address] [place] [phone] Zeferino Hill MD [address] [facility] [address] [place], [place] [address] Social History Tobacco Use Types Packs/Day Years Used Date Smoking Tobacco: Former Cigarettes 0.2 5 0 01/15/1976 - 01/14/1981 Smokeless Tobacco: Never Alcohol Use Standard Drinks/Week Comments Yes 0 (1 standard drink = 0.6 oz pur e alcohol) occasional social only Comments No Sex and Gender Information Value Date Recorded Sex Assigned at Not on file Legal Sex Female 3:27 AM CAFETERIA COOK Gender Identity Not on file Sexual Orientation Not on file documented as of this encounter Progress Notes * Zeferino Hill MD - 05/14/2013 10:35 AM CDT Progress Note Created by: Zeferino Hill M.D. [id number] DATE: 05/08/2013 PRASANTH DELCID DATE OF : 1945 AGE: [age] years old Referring Physician: AVIVA SILVESTRE Referring Clinic: [facility] CURRENT DIAGNOSES 1. - Atrial Fibrillation, [...] know, Prasanth is a 67-year-old female of Persian descent, very friendly but easily excitable, with a history of symptomatic paroxysmal atrial fibrillation in a background of hypertension and normal LV function. I started her on amiodarone initially as her first-line given that she is going to be away visiting her family in [place] for at least three months and I [...] on filedocumented in this encounter Care Teams Merchant Seaman Relationship Specialty Start Date End Date Aviva Duggan MD [facility] [address] [place] [address] PCP - General Family Practice 12/18/10 06/18/14 Miles Martinez MD PCP - General 06/19/14 10/20/14 Jose Juarez MD [address] [place] [phone] PCP - General Internal Medicine 10/21/14 12/07/[address] [facility] & [address] [address] PCP - General Family Practice 12/08/16 Jose Juarez MD [address] [place] [phone] PCP - Assigned PCP 06/02/14 12/12/18 Jose Juarez MD [address] [place] [phone] Assigned PCP 09/01/14 01/20/19 documented as of this encounter
--- OUTSIDE RECORDS SUMMARY | 2024-11-25 09:37 | XMS_ITS | Encounter Summary ---
Author Organization [place] Address [address] [place] [address] Care Team Providers Care Red Leader Name Role Phone Aviva Duggan MD Primary Care Prov ider Miles Martinez MD Primary Care Provider Unavailabl e Jose Juarez MD Primary Care Provider [phone] Jerilyn Cervantes MD Primary Care Provider + Jose Juarez MD Unavailable [phone] Jose Juarez MD Unavailable [phone] Reason for Visit * Reason Comments Refill Request Encounter Details Date Type Department Care Team (Late st Contact Info) Description 07/10/[address] [address] Aviva Duggan MD [facility] [address] [place] [address] Refill Request Social History Tobacco [...] on file Legal 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 Female 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 Gender Identity Not on file Sexual Orientation Not on file documented as of this encounter Plan of Treatment Not on file documented as of this encounter Visit Diagnoses Diagnosis Depression- Primary Depressive disorder, not elsewhere classified documented in this encounter Care Teams Red Leader Relationship Specialty Start Date End Date Aviva Duggan MD [facility] [address] [place] [address] PCP - General Family Practice 12/18/10 06/18/14 Miles Martinez MD PCP - General 06/19/14 10/20/14 Jose Juarez MD [address] [place] [phone] PCP - General Internal Medicine 10/21/14 12/07/16 Jerilyn Cervantes MD [facility] & [address] [address] PCP - General Family Practice 12/08/16 Jose Juarez MD [address] [place] [phone] PCP - Assigned PCP 06/02/14 12/12/18 Jsoe Juarez MD [address] [place] [phone] Assigned PCP 09/01/14 01/20/19 documented as of this encounter
--- OUTSIDE RECORDS SUMMARY | 2024-11-25 09:37 | XMS_ITS | Encounter Summary ---
Author Organization [place] Address [address] [place] [address] Care Team Providers Care Radiographer Angiogram Name Role Phone Aviva Duggan MD Primary Care Prov ider Miles Martinez MD Primary Care Provider Unavailabl e Jose Juarez MD Primary Care Provider Jerilyn Cervantes MD Primary Care Provider + Jose Juarez MD Unavailable [phone] Jose Juarez MD Unavailable [phone] Reason for Visit * Reason Comments Medication Refill Encounter Details Date Type Department Care Team (Late st Contact Info) Description 02/14/2014 Refill [facility] [address] [address] Aviva Duggan MD [facility] [address] [place] [address] Medication Refill Social History Tobacco [...] on file 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 Gender Identity Not on file Sexual Orientation Not on file documented as of this encounter Plan of Treatment Not on file documented as of this encounter Visit Diagnoses Diagnosis Anxiety- Primary Anxiety state, unspecified documented in this encounter Care Teams Radiographer Angiogram Relationship Specialty Start Date End Date Aviva Duggan MD [facility] [address] [place] [address] PCP - General Family Practice 12/18/10 06/18/14 Miles Martinez MD PCP - General 06/19/14 10/20/14 Jose Juarez MD [address] [place] [phone] PCP - General Internal Medicine 10/21/14 12/07/16 Jerilyn Ceravntes MD [facility] & [address] [address] PCP - General Family Practice 12/08/16 Jose Juarez MD [address] [place] [phone] PCP - Assigned PCP 06/02/14 12/12/18 Jose Juarez MD [address] [place] [phone] Assigned PCP 09/01/14 01/20/19 documented as of this encounter
--- OUTSIDE RECORDS SUMMARY | 2024-11-25 09:37 | XMS_ITS | Encounter Summary ---
Author Organization [place] Address [address] [place] [address] Care Team Providers Care Job Hand Name Role Phone Aviva Duggan MD Primary Care Prov ider Miles Martinez MD Primary Care Provider Unavailabl e Jose Juarez MD Primary Care Provider Jerilyn Cervantes MD Primary Care Provider + Jose Juarez MD Unavailable [phone] Jose Juarez MD Unavailable [phone] Reason for Visit * Reason Comments Medication Refill Encounter Details Date Type Department Care Team (Late st Contact Info) Description 06/17/2014 Refill [facility] [address] [address] Aviva Duggan MD [facility] [place] [address] Medication Refill Social History Tobacco [...] on file 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 & [address] [address] PCP - General Family Practice 12/08/16 Jose Juarez MD [address] [place] [phone] PCP - Assigned PCP 06/02/14 12/12/18 Jose Juarez MD [address] [place] [phone] Assigned PCP 09/01/14 01/20/19 documented as of this encounter
--- OUTSIDE RECORDS SUMMARY | 2024-11-25 09:37 | XMS_ITS | Encounter Summary ---
Author Organization [place] Address [address] [place] [address] Care Team Providers Care Pipe Line Maintenance Supervisor Name Role Phone Aviva Duggan MD Primary Care Prov ider Miles Martinez MD Primary Care Provider Unavailabl e Jose Juarez MD Primary Care Provider [phone] Jerilyn Cervantes MD Primary Care Provider + Jose Juarez MD Unavailable [phone] Jose Juarez MD Unavailable [phone] Encounter Details Date Type Department Care Team (Late st Contact Info) Description 09/07/2011 Office Visit-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; Place of - [place]; Hours Worked - 40 hours per week; [...] filedocumented in this encounter Care Teams Pipe Line Maintenance Supervisor Relationship Specialty Start Date End Date Aviva Duggan MD [facility] [address] [place] [address] PCP - General Family Practice 12/18/10 06/18/14 Miles Martinez MD PCP - General 06/19/14 10/20/14 Jose Juarez MD [address] [phone] PCP - General Internal Medicine 10/21/14 12/07/16 Jerilyn Cervantes MD [facility] [address] [place] [address] PCP - General Family Practice 12/08/16 Jose Juarez MD [address] [phone] PCP - Assigned PCP 06/02/14 12/12/18 Jose Juarez MD [address] [place] [phone] Assigned PCP 09/01/14 01/20/19 documented as of this encounter
--- NOTE | 2024-11-25 09:38 | ED.GENADULT ---
HPI - General Adult General Date Seen: 11/25/24 Chief complaint: Extremity Pain/Injury, Upper Stated complaint: fell on right arm Time Seen by Provider: 11/25/24 09:16 History of Present Illness HPI narrative: Patient is an 79-year-old here with her grandson. She had a fall this morning, lost her balance and fell from standing height. She did hit her head but denies loss of consciousness. She is anticoagulated on Eliquis secondary to atrial fibrillation. She is here primarily because of right elbow pain. She denies shoulder wrist pain. She has no neck or back pain. No other complaints. Related Data Home Medications ?Medication ?Instructions ?Recorded ?Confirmed calcium 600 mg (as carbonate)-vit 1 tab PO BID 04/13/22 02/23/24 D3 10 mcg (400 unit)-minerals tablet amlodipine 2.5 mg tablet 2.5 mg PO QDAY 01/31/24 02/23/24 Previous Rx's ?Medication ?Instructions ?Recorded acetaminophen 500 mg tablet 500 - 1,000 mg (1 - 2 x 500 mg) PO 04/14/22 Q6H PRN #100 tabs atorvastatin 10 mg tablet 10 mg PO HS #90 tabs 11/24/23 gabapentin 300 mg capsule 300 mg PO Q8H #270 caps 11/24/23 metoprolol succinate 25 mg 25 mg PO DAILY #90 tabs 11/24/23 tablet,extended release 24 hr omeprazole 20 mg capsule,delayed 20 mg PO .every other day #90 caps 11/24/23 release sertraline 25 mg tablet 25 mg PO Q24H #90 tabs 11/24/23 propafenone 225 mg tablet 225 mg PO Q12H #180 tabs 09/07/24 alendronate 70 mg tablet (Fosamax) 70 mg PO QWEEK #14 tabs 11/15/24 warfarin 3 mg tablet 3 mg PO DAILY #100 tabs 11/15/24 Allergies Allergy/AdvReac Type Severity Reaction Status Date / Time ciprofloxacin Allergy Severe itching Verified 02/23/24 13:12 lisinopril Allergy Unknown Verified 02/23/24 13:12 metoprolol Allergy Unknown Verified 02/23/24 13:12 Review of Systems Status of ROS: Reports: 6 or more systems reviewed and unremarkable except as noted in History and below [facility] Medical History Meningioma (~2016) ?D32.9 - Benign neoplasm of meninges, unspecified (ICD-10) White coat syndrome with diagnosis of hypertension ?I10 - Essential (primary) hypertension (ICD-10) Subclinical hypothyroidism ?E03.8 - Other specified hypothyroidism (ICD-10) Sliding hiatal hernia (2017) ?K44.9 - Diaphragmatic hernia without obstruction or gangrene (ICD-10) Paroxysmal atrial fibrillation ?I48.0 - Paroxysmal atrial fibrillation (ICD-10) Osteopenia determined by x-ray (11/2020) ?M85.80 - Other specified disorders of bone density and structure, unspecified site (ICD-10) snf current use of anticoagulant therapy ?Z79.01 - termite inspector (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) use of anticoagulants (ICD-10) Iron deficiency anemia ?D50.9 - Iron deficiency anemia, unspecified (ICD-10) Hypertension ?I10 - Essential (primary) hypertension (ICD-10) Hyperlipidemia ?E78.5 - Hyperlipidemia, unspecified (ICD-10) History of osteoporosis (2015) ?Z87.39 - Personal history of other diseases of the musculoskeletal system and connective tissue (ICD-10) Headache ?R51.9 - Headache, unspecified (ICD-10) Generalized anxiety disorder (08/04/11) ?F41.1 - Generalized anxiety disorder (ICD-10) Gastroesophageal reflux disease ?K21.9 - Gastro-esophageal reflux disease without esophagitis (ICD-10) Decreased creatinine clearance ?R94.4 - Abnormal results of kidney function studies (ICD-10) Atrial fibrillation and flutter (2016) ?I48.91 - Unspecified atrial fibrillation (ICD-10) ?I48.92 - Unspecified atrial flutter (ICD-10) Anticoagulated with warfarin ?Z79.01 - termite inspector (current) use of anticoagulants (ICD-10) Surgical History Status post total left knee replacement (04/14/22) ?Z96.652 - Presence of left artificial knee joint (ICD-10) History of thyroid surgery (1979) ?Z98.890 - Other specified postprocedural states (ICD-10) History of hip surgery (12/09/20) ?Z98.890 - Other specified postprocedural states (ICD-10) Normal colonoscopy (2013) History of total right knee replacement (2011) ?Z96.651 - Presence of right artificial knee joint (ICD-10) History of surgery on upper extremity (05/28/16) ?Z98.890 - Other specified postprocedural states (ICD-10) History of section ?Z98.891 - History of uterine scar from previous surgery (ICD-10) Family History Sister Rheumatoid arthritis Social History Narrative: , lives alone in a condo, 1 adult sons, 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- pool exercise 3x/week, [facility] [employer] [facility] non-smoker: quit age 29, 5 pack years rarely consumes alcohol past problems: former smoker What is your current living situation?: I have a place to live at present, but am concerned about future Problems where you live: lack of heat, water leaks and unable to answer Smoking Status: Never smoker How often do you have a drink containing alcohol: never AUDIT-C Alcohol total score: 0 Non-prescribed substance use: denies use Caffeine: Yes Are you using contraception or practicing any form of control: No Health Related Social Needs: Inadequate housing (Z59.1) and housing instability, housed, with risk of homelessness (Z59.811) Exam Narrative: Exam Narrative: Vital signs reviewed In general, alert, nontoxic Head: Normocephalic, atraumatic. Eyes: Sclera clear. Pupils equal and reactive. ENT: Mucous membranes moist. Neck: Supple without adenopathy. Nontender to palpation. Heart: Regular rate and rhythm without murmur. Lungs: Clear. No increased work of breathing, crackles or wheezes. Abdomen: Soft, nontender to palpation. Extremities: Well perfused, pulses intact. She has a little bit of swelling around the right elbow, some tenderness over the radial head. She has little bit of tenderness over the lateral elbow as well. Distal CMS intact. She does have full range of motion of the elbow but she says it is painful. She does not have any tenderness of the shoulder or wrist. 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 Neurologic: Alert, conversant. Speech fluent, face symmetric. Moves all extremities equally. Skin: Warm, dry well perfused. Affect: Normal. Const: Vital Signs, click to edit/add: Vital Signs - 24 hr 11/25/24 09:09 Temperature 97.8 F Pulse Rate [Pulse Oximeter] 114 H Respiratory Rate 18 Blood Pressure [Le ft Upper Arm] 149/72 H Pulse Oximetry 92 Oxygen Delivery Me thod Room Air Course Course ED Course: Given anticoagulation, will do a CT of the head. I do not see an indication for CT of cervical spine. X-rays of the right elbow ordered as well. By my review, CT scan of the head does not show any acute findings such as hemorrhage. Radiology report is reviewed, they feel there is perhaps a subtle meningioma without mass effect. Related this to the patient as well. I do not think any specific follow-up is needed. With regard to the elbow, there is a comminuted and intra-articular fracture of the distal humerus. Case discussed with orthopedics who recommend follow-up with an elbow specialist. I placed a long-arm splint using Ortho Glass and Sandeep wraps, tolerated well no immediate complication. Will provide a sling, Tylenol as needed. She does not feel she needs anything stronger for pain. Return any time for acute or worsening concerns, otherwise outpatient orthopedic follow-up as discussed. Vital Signs Vital signs: Initial Vital Signs Temperature 97.8 F 11/25/24 09:09 Temperature Source Temporal Artery Scan 11/25/24 09:09 Pulse Rate 114 H 11/25/24 09:09 Respiratory Rate 18 11/25/24 09:09 Blood Pressure 149/72 H 11/25/24 09:09 Blood Pressure Mean 97 11/25/24 09:09 Blood Pressure Position Sitting 11/25/24 09:09 Pulse Oximetry 92 11/25/24 09:09 Oxygen Delivery Method Room Air 11/25/24 09:09 Vital Signs Temperature 97.8 F 11/25/24 09:09 Pulse Rate 114 H 11/25/24 09:09 Respiratory Rate 18 11/25/24 09:09 Blood Pressure 149/72 H 11/25/24 09:09 Pulse Oximetry 92 11/25/24 09:09 Oxygen Delivery Method Room Air 11/25/24 09:09 Temperature 97.8 F 11/25/24 09:09 Pulse Rate 114 H 11/25/24 09:09 Respiratory Rate 18 11/25/24 09:09 Blood Pressure 149/72 H 11/25/24 09:09 Pulse Oximetry 92 11/25/24 09:09 Oxygen Delivery Method Room Air 11/25/24 09:09 Medical Decision Making Imaging Data CT scan - head: Attestation: I have reviewed the pertinent imaging results. Radiologist's impression: Patient: Teresa Pinto MR#: [id number] : 1945 Acct:[id number] Loc: ED Service Date: 11/25/[address]: Ordering Physician: Alberta Loredo M.D. Date of Service: 11/25/24 Procedure(s): CT head/brain wo con Accession Number(s): [id number] cc: Alberta Loredo M.D.; Jerilyn Cervantes M.D.~ For Patients: As a result of the Cures Act, medical imaging exams and procedure reports are released immediately into your electronic medical record. You may view this report before your referring provider. If you have questions, please contact your health care provider. INDICATION: Fall. COMPARISON: None. TECHNIQUE: CT of the brain / head without intravenous contrast. Multiplanar axial, coronal, and sagittal reformats were reconstructed. FINDINGS: No intracranial hemorrhage. Age-related parenchymal volume loss. No acute or subacute cortically based infarct. Scattered white matter hypodensities may be related to chronic microvascular ischemia. There is a relatively subtle hyperdense mass along the medial right occipital lobe, seen along the tentorium that measures about 2 x 2 x 1.5 cm. This is not definitely within the parenchyma and may be a tentorial meningioma. There is no appreciable mass effect. No adjacent white matter edema. Normal ventricles and subarachnoid spaces. No skull fractures. No worrisome focal bone lesion. IMPRESSION: 1. Suspect there is a 2 centimeter meningioma along the right tentorium. 2. No intracranial hemorrhage or acute traumatic findings. Please note that all CT scans at this facility use dose modulation, iterative reconstruction, and/or weight-based dosing when appropriate to reduce radiation dose to as low as reasonably achievable. Dictated by Day Burch MD @ 11/25/2024 9:58:22 AM Elbow x-ray: Attestation: I have reviewed the pertinent imaging results. Radiologist's impression: Patient: Teresa Pinto MR#: [id number] : 1945 Acct:[id number] Loc: ED Service Date: 11/25/[address]: Ordering Physician: Alberta Loredo M.D. Date of Service: 11/25/24 Procedure(s): XR elbow RT min 3V Accession Number(s): [id number] cc: Alberta Loredo M.D.; Jerilyn Cervantes M.D.~ For Patients: As a result of the Cures Act, medical imaging exams and procedure reports are released immediately into your electronic medical record. You may view this report before your referring provider. If you have questions, please contact your health care provider. Indication: Fall Technique: Right elbow 3 views Comparison: None Findings: Bones: Comminuted fracture of the distal humerus with mild ulnar displacement and mild apex anterior angulation. Fracture lines extend into the ulnotrochlear joint. Joint spaces: Small elbow joint effusion. Soft tissues: Calcific tendinosis of the extensor tendons. Mild soft tissue swelling surrounding the elbow. Impression: Comminuted fracture of the distal humerus with mild ulnar displacement and apex anterior angulation of fracture fragments. There is intra-articular extension of fracture lines into the ulnotrochlear joint. Dictated by Magui Win MD @ 11/25/2024 9:59:08 AM Discharge Plan Discharge Clinical Impression: Fracture of distal end of humerus Patient Disposition: Home, Self-Care Instructions: Arm Fracture in Adults (ED) Additional Instructions: You will need follow-up with an orthopedic surgeon. I would recommend that you call [facility]; please call to schedule an appointment. Please tell them that you were seen in the ER and were told that you need an elbow specialist. You can take Tylenol as needed. Wear the splint until you are seen in follow-up. The splint does not water proof, you will need to either coverage at or avoid contact with water. Prescriptions: No Action atorvastatin 10 mg tablet 10 mg PO HS Qty: 90 3RF gabapentin 300 mg capsule 300 mg PO Q8H Qty: 270 3RF metoprolol succinate 25 mg tablet extended release 24 hr 25 mg PO DAILY Qty: 90 3RF omeprazole 20 mg capsule,delayed release(DR/EC) 20 mg PO .every other day Qty: 90 1RF sertraline 25 mg tablet 25 mg PO Q24H Qty: 90 3RF amlodipine 2.5 mg tablet 2.5 mg PO QDAY calcium carbonate-vit D3-min 600 mg calcium- 400 unit tablet 1 tab PO BID acetaminophen 500 mg Tablet 500 - 1,000 mg PO Q6H MDD 4000 mg per day PRNQty: 100 0RF propafenone 225 mg tablet 225 mg PO Q12H Qty: 180 0RF warfarin 3 mg tablet 3 mg PO DAILY Qty: 100 0RF Protocol: Dose Management Condition: Tuesday Dose/Route: 3 mg Instruction: 1 x 3 mg tablet Condition: Tuesday Dose/Route: 3 mg Instruction: 1 x 3 mg tablet Condition: Tuesday Dose/Route: 3 mg Instruction: 1 x 3 mg tablet Condition: Tuesday Dose/Route: 3 mg Instruction: 1 x 3 mg tablet Condition: Dose/Route: 4.5 mg Instruction: 1.5 x 3 mg tablets Condition: Tuesday Dose/Route: 3 mg Instruction: 1 x 3 mg tablet Condition: Tuesday Dose/Route: 3 mg Instruction: 1 x 3 mg tablet Protocol Text: Adjustment Start Date: 11/22/24 INR Value: 3.2 INR Date: 11/22/24 Recheck Date: 12/06/24 Rx Instructions: 4.5mg on , 3mg the rest of the week alendronate [Fosamax] 70 mg tablet 70 mg PO QWEEK Qty: 14 0RF Follow Up/Referrals: Jerilyn Cervantes MD [Primary Care Provider] - Stand Alone Forms: [employer] Info Instructions
--- OUTSIDE RECORDS SUMMARY | 2024-11-25 09:38 | XMS_ITS | Encounter Summary ---
Author Organization [place] Address [address] [place] [address] Care Team Providers Care Registered Nurse Fetal Name Role Phone Aviva Duggan MD Primary Care Prov ider Miles Martinez MD Primary Care Provider Unavailabl e Jose Juarez MD Primary Care Provider Jerilyn Cervantes MD Primary Care Provider + Jose Juarez MD Unavailable [phone] Jose Juarez MD Unavailable [phone] Reason for Visit * Reason Comments Refill Request Encounter Details Date Type Department Care Team (Late st Contact Info) Description 04/13/[address] [address] Aviva Duggan MD [facility] [place] [address] Refill Request Social History Tobacco [...] on file Legal 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 Female 3:27 AM DISH MAKER Gender Identity Not on file Sexual Orientation Not on file documented as of this encounter Plan of Treatment Not on file documented as of this encounter Visit Diagnoses Diagnosis Depression- Primary Depressive disorder, not elsewhere classified documented in this encounter Care Teams Registered Nurse Fetal Relationship Specialty Start Date End Date Aviva Duggan MD [facility] [address] [place] [address] PCP - General Family Practice 12/18/10 06/18/14 Miles Martinez MD PCP - General 06/19/14 10/20/14 Jose Juarez MD [address] [place] [phone] PCP - General Internal Medicine 10/21/14 12/07/16 Jerilyn Cervantes MD [facility] & [address] [address] PCP - General Family Practice 12/08/16 Jose Juarez MD [address] [place] [phone] PCP - Assigned PCP 06/02/14 12/12/18 Jose Juarez MD [address] [place] [phone] Assigned PCP 09/01/14 01/20/19 documented as of this encounter
--- OUTSIDE RECORDS SUMMARY | 2024-11-25 09:38 | XMS_ITS | Encounter Summary ---
Author Organization [place] Address [address] [place] [address] Care Team Providers Care Resource Forester Name Role Phone Aviva Duggan MD Primary Care Prov ider Miles Martinez MD Primary Care Provider Unavailabl e Jose Juarez MD Primary Care Provider Jerilyn Cervantes MD Primary Care Provider + Jose Juarez MD Unavailable [phone] Jose Juarez MD Unavailable [phone] Reason for Visit * Reason Comments Medication Refill Encounter Details Date Type Department Care Team (Late st Contact Info) Description 10/11/2013 Refill [facility] [address] [address] [facility] [address] [place] [address] Medication Refill Social History Tobacco [...] on file Legal Sex Female 3:27 AM SHIRT HEMMER Gender Identity Not on file Sexual Orientation Not on file documented as of this encounter Plan of Treatment Not on file documented as of this encounter Visit Diagnoses Diagnosis Anxiety- Primary Anxiety state, unspecified documented in this encounter Care Teams Resource Forester Relationship Specialty Start Date End Date Aviva Duggan MD [facility] [address] [place] [address] PCP - General Family Practice 12/18/10 06/18/14 Miles Martinez MD PCP - General 06/19/14 10/20/14 Jose Juarez MD [address] [place] [phone] PCP - General Internal Medicine 10/21/14 12/07/16 Jerilyn Cervantes MD [facility] & [address] [address] PCP - General Family Practice 12/08/16 Jose Juarez MD [address] [place] [phone] PCP - Assigned PCP 06/02/14 12/12/18 Jose Juarez MD [address] [place] [phone] Assigned PCP 09/01/14 01/20/19 documented as of this encounter
--- OUTSIDE RECORDS SUMMARY | 2024-11-25 09:38 | XMS_ITS | Clinical Summary ---
Author Organization [place] Address [facility] [place] [address] Care Team Providers Care Press Operator Meat Name Role Phone Jerilyn Cervantes MD Primary Care Provider + Allergies Active Allergy Reactions Criticality Noted Date Comments Quinolones Itching 01/14/2011 Influenza Virus Vaccine Other (See Comments) 01/14/2011 Hospitalized as child Medications Calcium Carbonate-Vitami n D (CALCIUM 600 + D OR) Take 2 tablets by mouth daily. Active [place]-3 Fatty Acids (FISH OIL PO) Take 1 [...] Resolved Date NO SHOW 08/15/2013 03/05/2014 Health Correction 04/26/2013 03/26/2024 Overview (02/06/2014): State Tier Level: [...] on file Legal Sex Female 3:27 AM COMMUNITY DEVELOPMENT MANAGER Gender Identity Not on file Sexual [...] (138 lb 6.4 oz) 12/08/2016 3:30 PM COMMUNITY DEVELOPMENT MANAGER Height 157.5 cm (5' 2) 12/08/2016 3:30 PM COMMUNITY DEVELOPMENT MANAGER Body Mass Index 25.31 12/08/2016 3:30 PM COMMUNITY DEVELOPMENT MANAGER Plan of Treatment Not on file Insurance [employer] MED[employer]ARE ADV[employer]AGE [facility] Advance Directives For more information, please contact: [phone] * Full Code (Latest Code Status on File) Date Activated Date Inactivated Comments 11/01/2013 1:52 PM 12/31/2018 5:26 PM * Full Code Date Activated Date Inactivated Comments 10/28/2013 5:55 PM 11/01/2013 1:52 PM Care Teams Press Operator Meat Relationship Specialty Start Date End Date Jerilyn Cervantes MD [facility] & [address] [address] PCP - General Family Practice 12/08/16
--- OUTSIDE RECORDS SUMMARY | 2024-11-25 09:38 | XMS_ITS | Encounter Summary ---
Author Organization [facility] Address [address] [place] [address] Care Team Providers Care Bottom Pounder Cement Shoes Name Role Phone Aviva Duggan MD Primary Care Prov ider Miles Martinez MD Primary Care Provider Unavailabl e Jose Juarez MD Primary Care Provider Jerilyn Cervantes MD Primary Care Provider + Jose Juarez MD Unavailable [phone] Jose Juarez MD Unavailable [phone] Encounter Details Date Type Department Care Team (Late st Contact Info) Description 11/29/2013 Office Visit-[facility] [address] [phone] Isaac Cheatham MD Social History Tobacco Use [...] on file Legal Sex Female 3:27 AM TRAFFIC ENGINEERING TECHNICIAN Gender Identity Not on file Sexual Orientation Not on file documented as of this encounter Progress Notes * Isaac Cheatham MD - 12/03/2013 4:01 PM CST Progress Note Created by: Isaac Cheatham M.D. DATE: 11/29/2013 PRASANTH DELCID DATE OF : 1945 AGE: [age] years old Referring Physician: AVIVA DUGGAN Referring Clinic: ([facility]) [facility] CURRENT DIAGNOSES 1. - Atrial Fibrillation, [...] She is a 68-year-old white female from [place]. 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 [address] [place] [address] PCP - General Family Practice 12/18/10 06/18/14 Miles Martinez MD PCP - General 06/19/14 10/20/14 Jose Juarez MD [address] [place] [phone] PCP - General Internal Medicine 10/21/14 12/07/16 Jerilyn Cervantes MD [facility] & [address] [phone] PCP - General Family Practice 12/08/16 Jose Juarez MD [address] [place] [phone] PCP - Assigned PCP 06/02/14 12/12/18 Jose Juarez MD [address] [place] [phone] Assigned PCP 09/01/14 01/20/19 documented as of this encounter
--- OUTSIDE RECORDS SUMMARY | 2024-11-25 09:38 | XMS_ITS | Encounter Summary ---
Author Organization [place] Address [facility] [place] [address] Care Team Providers Care Interactive Art Director Name Role Phone Aviva Duggan MD Primary Care Prov ider DoctorMiles MD Primary Care Provider Unavailabl e Jose Juarez MD Primary Care Provider Jerilyn Cervantes MD Primary Care Provider + Jose Juarez MD Unavailable [phone] Jose Juarez MD Unavailable [phone] Encounter Details Date Type Department Care Team (Late st Contact Info) Description 12/17/2013 Office Visit-[facility] [address] [place] [address] Raza Tomlin MD [address] [facility] [address] [place] [address] Social History Tobacco Use Types Packs/Day Years Used Date Smoking Tobacco: Former Cigarettes 0.2 5 0 01/15/1976 - 01/14/1981 Smokeless Tobacco: Never Alcohol Use Standard Drinks/Week Comments Yes 0 (1 standard drink = 0.6 oz pur e alcohol) occasional social only Comments No Sex and Gender Information Value Date Recorded Sex Assigned at Not on file Legal Sex Female 3:27 AM PURCHASING CLERK Gender Identity Not on file Sexual Orientation Not on file documented as of this encounter Progress Notes * Raza Tomlin MD - 12/19/2013 11:19 AM CDT Progress Note Created by: Raza Tomlin M.D. DATE: 12/17/2013 PRASANTH DELCID DATE OF : 1945 AGE: [age] years old Referring Physician: AVIVA DUGGAN Referring Clinic: ([facility] CURRENT DIAGNOSES 1. 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 Delcid [...] me with any questions or concerns. <FONT COLOR=#[id number]><FONT POINT=10> TODAYS ORDERS 1. Return prn Raza Tomlin M.D. documented in this encounter Plan of Treatment Not on file documented as of this encounter Visit Diagnoses Not on filedocumented in this encounter Care Teams Interactive Art Director Relationship Specialty Start Date End Date Aviva Duggan MD [facility] [address] [place] [address] PCP - General Family Practice 12/18/10 06/18/14 Miles Martinez MD PCP - General 06/19/14 10/20/14 Jose Juarez MD [address] [place] [phone] PCP - General Internal Medicine 10/21/14 12/07/16 Jerilyn Cervantes MD [facility] & [address] [address] PCP - General Family Practice 12/08/16 Jose Juarez MD [address] [place] [phone] PCP - Assigned PCP 06/02/14 12/12/18 Jose Juarez MD [address] [place] [phone] Assigned PCP 09/01/14 01/20/19 documented as of this encounter
--- OUTSIDE RECORDS SUMMARY | 2024-11-25 09:38 | XMS_ITS | Encounter Summary ---
Author Organization [place] Address [address] [place] [address] Care Team Providers Care Hair Clipper Power Name Role Phone Aviva Duggan MD Primary Care Prov ider Miles Martinez MD Primary Care Provider Unavailabl e Jose Juarez MD Primary Care Provider Jerilyn Cervantes MD Primary Care Provider + Jose Juarez MD Unavailable [phone] Jose Juarez MD Unavailable [phone] Reason for Visit * Reason Comments Refill Request Encounter Details Date Type Department Care Team (Late st Contact Info) Description 04/07/[address] [address] Aviva Duggan MD [facility] [place] [address] Refill Request Social History Tobacco [...] on file Legal Sex Female 3:[address]NAGER Gender Identity Not on file Sexual Orientation Not on file documented as of this encounter Plan of Treatment Not on file documented as of this encounter Visit Diagnoses Diagnosis Anxiety- Primary Anxiety state, unspecified documented in this encounter Care Teams Hair Clipper Power Relationship Specialty Start Date End Date Aviva Duggan MD [facility] [address] [place] [address] PCP - General Family Practice 12/18/10 06/18/14 Miles Martinez MD PCP - General 06/19/14 10/20/14 Jose Juarez MD [address] [place] [phone] PCP - General Internal Medicine 10/21/14 12/07/16 Jerilyn Cervantes MD [facility] & [address] [address] PCP - General Family Practice 12/08/16 Jose Juarez MD [address] [place] [phone] PCP - Assigned PCP 06/02/14 12/12/18 Jose Juarez MD [address] [place] [phone] Assigned PCP 09/01/14 01/20/19 documented as of this encounter
--- OUTSIDE RECORDS SUMMARY | 2024-11-25 09:38 | XMS_ITS | Encounter Summary ---
Author Organization [place] Address [facility] [place] [address] Care Team Providers Care Electrical Control Assembler Name Role Phone Aviva Duggan MD Primary Care Prov ider Miles Martinez MD Primary Care Provider Unavailabl e Jose Juarez MD Primary Care Provider [phone] Jerilyn Cervantes MD Primary Care Provider + Jose Juarez MD Unavailable [phone] Jose Juarez MD Unavailable [phone] Encounter Details Date Type Department Care Team (Late st Contact Info) Description 04/06/2013 Office Visit-[facility] [address] [place] [phone] Zeferino Hill MD [address] [facility] [address] [place], [place] [phone] Social History Tobacco Use Types Packs/Day Years Used Date Smoking Tobacco: Former Cigarettes 0.2 5 0 01/15/1976 - 01/14/1981 Smokeless Tobacco: Never Alcohol Use Standard Drinks/Week Comments Yes 0 (1 standard drink = 0.6 oz pur e alcohol) occasional social only Comments No Sex and Gender Information Value Date Recorded Sex Assigned at Not on file Legal Sex Female 3:27 AM MECHANICAL INSPECTOR Gender Identity Not on file Sexual Orientation Not on file documented as of this encounter Progress Notes * Zeferino Hill MD - 04/10/2013 3:28 PM CDT Progress Note Created by: Zeferino Hill M.D. [id number] DATE: 04/06/2013 PRASANTH DELCID DATE OF : 1945 AGE: [age] years old Referring Physician: AVIVA GUZMAN Referring Clinic: [facility] CURRENT DIAGNOSES 1. - Atrial Fibrillation, [...] Ms. Delcid is a 67-year-old female of [place] decent. I first saw her a few months ago for recurrent symptomatic atypical atrial fibrillation in the background of hypertension and normal LV function. At that time I recommended her to be on amiodarone given that she was going to spend a month in [place] for vacation along with [place]. I asked her to come back today to discuss lead infrastructure architect treatment andalso the fact that she wished [...] on filedocumented in this encounter Care Teams Electrical Control Assembler Relationship Specialty Start Date End Date Aviva Duggan MD [facility] [address] [place] [address] PCP - General Family Practice 12/18/10 06/18/14 Miles Martinez MD PCP - General 06/19/14 10/20/14 Jose Juarez MD [address] [place] [phone] PCP - General Internal Medicine 10/21/14 12/07/16 Jerilyn Cervantes MD [facility] & [address] [address] PCP - General Family Practice 12/08/16 Jose Juarez MD [address] [place] [phone] PCP - Assigned PCP 06/02/14 12/12/18 Jose Juarez MD [address] [place] [phone] Assigned PCP 09/01/14 01/20/19 documented as of this encounter
--- OUTSIDE RECORDS SUMMARY | 2024-11-25 09:38 | XMS_ITS | Clinical Summary ---
Author Organization [facility] Address [place], [place] [address] Care Team Providers Care Process Specialist Name Role Phone Jerilyn Cervantes MD Primary [...] follow up in December 2023. Please call [phone] to schedule. 180 Tablet 3 Active amLODIPine (NORVASC) 2.5 mg tabletIndicatio ns:Hypertension Take 1 Tablet (2.5 mg) by mouth once daily. Due for cardiology follow up in December. Please call [phone] to schedule. 90 Tablet 4 Active Active Problems Problem Noted Date Diagnosed Date ACP (advance care planning) 12/21/2011 Overview (12/21/2011): Patient has identified Health Care Agent(s): Yes Add Health Care Agents: Yes Health Care Agent(s): Primary Health Care Agent: Jose Juan Carlos Relationship: Son Secondary Health Care Agent: Alejo Juan Cralos Relationship: Son Conservator: Relationship: Phone: Guardian: Relationship: [...] . Dizziness has since resolved. Saw a blower mechanic from [place](Dr Mendez Jimenez) who recommended no further interventions. 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 Gender Identity Not on file Sexual Orientation Not on file Obstetrics History Last Filed Vital Signs Vital Sign Reading Time Taken Comments Blood Pressure 142/80 11/07/2020 9:10 AM SOFTWARE PROJECT ENGINEER Pulse 55 11/07/2020 9:10 AM SOFTWARE PROJECT ENGINEER Temperature 36.7 C (98.1 F) 12/23/2011 8:05 AM CDT Respiratory Rate 16 11/07/2020 9:10 AM SOFTWARE PROJECT ENGINEER Oxygen Saturation 100% 12/23/2011 8:05 AM CDT Inhaled Oxygen Concentration - - Weight 67.6 kg (149 lb) 11/07/2020 9:10 AM SOFTWARE PROJECT ENGINEER Height 156.2 cm (5' 1.5) 03/15/2012 3:28 [...] 65+ 06/10/2024 Medical Devices Implanted Type Area Tool Filer Device Identifier Shelf Expiration Date Model / Serial / Lot Baseplate Tib Sz 4 Rt Andreina Ii - [id number] Implanted:Qty: 1 on 12/20/2011 at [facility] Ortho Total Joint Right: Knee [employer] [id number]# / / [id number] Cmnt Bone Surg Simplex - [id number] Implanted:Qty: 1 on 12/20/2011 at [facility] Right: Knee [employer] 6191-1-010# / / [id number] Cmnt 1/2 Dose[employer]ica - [id number] Implanted:Qty: 1 on 12/20/2011 at [facility] Right: Knee [employer] 6188-1-010# / / [id number] Compnt Fem P.S. Rt Sz [id number] - [id number] Implanted:Qty: 1 on 12/20/2011 at [facility] Right: Knee [employer] # / / [id number] Insert Legion Sz3-4 9mm Ps High Flex Xlpe - [id number] Implanted:Qty: 1 on 12/20/2011 at [facility] Right: Knee [employer] [id number]# / / [id number] Patellar Component Implanted:Qty: 1 on 12/20/2011 at [facility] Right: Knee [id number] / / [id number] Description:PATELLAR COMPONE NT Insurance [employer] CHOICE PPO MR Advance Directives * Full Code (Latest Code Status on File) Date Activated Date Inactivated Comments 12/20/2011 1:06 PM 12/23/2011 5:33 PM * Full Code Date Activated Date Inactivated Comments 12/20/2011 5:13 AM 12/20/2011 1:06 PM Care Teams Process Specialist Relationship Specialty Start Date End Date Jerilyn Cervantes MD [address] [place] [address] PCP - General Family Practice 04/19/18
--- OUTSIDE RECORDS SUMMARY | 2024-11-25 09:38 | XMS_ITS | Encounter Summary ---
Author Organization [place] Address [facility] [place] [address] Care Team Providers Care Railway Signal Electrician Name Role Phone Aviva Duggan MD Primary Care Prov ider Miles Martinez MD Primary Care Provider Unavailabl e Jose Juarez MD Primary Care Provider [phone] Jerilyn Cervantes MD Primary Care Provider + Jose Juarez MD Unavailable [phone] Jose Juarez MD Unavailable [phone] Encounter Details Date Type Department Care Team (Late st Contact Info) Description 01/11/2013 Office Visit-[facility] [address] [place] [phone] Zeferino Hill MD [address] [facility] [address] [place], [place] [address] Social History Tobacco Use Types Packs/Day Years Used Date Smoking Tobacco: Former Cigarettes 0.2 5 0 01/15/1976 - 01/14/1981 Smokeless Tobacco: Never Alcohol Use Standard Drinks/Week Comments Yes 0 (1 standard drink = 0.6 oz pur e alcohol) occasional social only Comments No Sex and Gender Information Value Date Recorded Sex Assigned at Not on file 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 [id number] DATE: 01/11/2013 PRASANTH DELCID DATE OF : 1945 AGE: [age] years old Referring Physician: AVIVA GUZMAN Referring Clinic: [facility] CURRENT DIAGNOSES 1. - Bradycardia, 427.89 [...] [place] [...] continue with Xarelto for now given her [id number] score of at 3 given her beinga female, age and history of hypertension. I would agree with anticoagulant. After she gets back from [place] I would have her on Coumadin to [...] on filedocumented in this encounter Care Teams Railway Signal Electrician Relationship Specialty Start Date End Date Aviva Duggan MD [facility] [address] [place] [address] PCP - General Family Practice 12/18/10 06/18/14 Miles Martinez MD PCP - General 06/19/14 10/20/14 Jose Juarez MD [address] [place] [phone] PCP - General Internal Medicine 10/21/14 12/07/[address] [facility] & [address] [address] PCP - General Family Practice 12/08/16 Jose Juarez MD [address] [place] [phone] PCP - Assigned PCP 06/02/14 12/12/18 Jose Juarez MD [address] [place] [phone] Assigned PCP 09/01/14 01/20/19 documented as of this encounter
== END 2024-11-25 10:44 | disposition home or self-care (01) ==
PROVIDERS: Emergency Provider Emergency Medicine; PCP Family Medicine
DX: S42.401A Unspecified fracture of lower end of right humerus, initial encounter for closed fracture (principal); I48.91 Unspecified atrial fibrillation; Y92.000 Kitchen of unspecified non-institutional (private) residence as the place of occurrence of the external cause; W18.30XA Fall on same level, unspecified, initial encounter; Z79.01 Long term (current) use of anticoagulants
CPT/HCPCS: 70450; 73080; 99284

== ENCOUNTER 2024-11-29 12:06 | Outpatient (CLI) | payer OTHER, SELFPAY | END 2024-11-29 12:07 | disposition home or self-care (01) | LOC: NFLDREF 12-04 03:48 | PROVIDERS: PCP Family Medicine; Referring Provider Family Medicine; Visit Provider Family Medicine | DX: I48.0 Paroxysmal atrial fibrillation (principal) | CPT/HCPCS: 85610 ==

== ENCOUNTER 2024-12-20 12:29 | Outpatient (CLI) | payer OTHER, SELFPAY | END 2024-12-20 12:30 | disposition home or self-care (01) | LOC: NFLDREF 12:30 | PROVIDERS: PCP Family Medicine; Visit Provider Family Medicine | DX: I48.0 Paroxysmal atrial fibrillation (principal); Z79.01 Long term (current) use of anticoagulants | CPT/HCPCS: 85610 ==

== ENCOUNTER 2025-01-03 09:36 | Outpatient (CLI) | payer OTHER, SELFPAY | END 2025-01-03 09:37 | disposition home or self-care (01) | LOC: NFLDREF 01-04 03:09 | PROVIDERS: PCP Family Medicine; Referring Provider Family Medicine; Visit Provider Family Medicine | DX: Z79.01 Long term (current) use of anticoagulants (principal) | CPT/HCPCS: 85610 ==

== ENCOUNTER 2025-01-18 10:05 | Outpatient (CLI) | payer OTHER, SELFPAY | END 2025-01-18 10:06 | disposition home or self-care (01) | LOC: NFLDREF 01-22 01:54 | PROVIDERS: PCP Family Medicine; Referring Provider Family Medicine; Visit Provider Family Medicine | DX: I48.0 Paroxysmal atrial fibrillation (principal); Z79.01 Long term (current) use of anticoagulants | CPT/HCPCS: 85610 ==

== ENCOUNTER 2025-02-19 15:03 | Outpatient (CLI) | payer OTHER, SELFPAY ==
--- NOTE | 2025-02-19 15:20 | CRLHL7_ITS ---
For Patients: As a result of the Century Cures Act, medical imaging exams and procedure reports are released immediately into your electronic medical record. You may view this report before your referring provider. If you have questions, please contact your health care provider. INDICATION: BILATERAL SCREENING MAMMOGRAM, ASYMPTOMATIC 79 Y/O FEMALE COMPARISON: 12/06/2023, 12/16/2022, 12/15/2021 TECHNIQUE: Digital mammogram in CC and MLO projections including computer-aided detection (CAD) and tomosynthesis. BREAST COMPOSITION: There are scattered areas of fibroglandular density. FINDINGS: No suspicious findings. ASSESSMENT: BI-RADS 1 Negative RECOMMENDATION: Annual screening mammogram. A lay language report of this examination will be provided to the patient. Dictated by: Tj Sainz MD @ 02/20/2025 11:35:07 (Electronically Signed)
== END 2025-02-19 15:04 | disposition home or self-care (01) ==
LOC: MAMMO 15:04
PROVIDERS: PCP Family Medicine; Visit Provider Family Medicine
DX: Z12.31 Encounter for screening mammogram for malignant neoplasm of breast (principal)
CPT/HCPCS: 77063; 77067